=== PATIENT | female | born 1965 | race Caucasian/White ===

== ENCOUNTER 2019-06-15 11:28 | Outpatient (CLI) | payer OTHER, SELFPAY ==
[2019-06-15 11:55] LABS: Basophils Absolute Auto 0.03 K/mm3 (0.00-0.10); Basophils Percent Auto 0.3 % (0.0-1.0); Eosinophils Absolute Auto 0.11 K/mm3 (0.02-0.50); Eosinophils Percent Auto 1.3 % (1.0-6.0); Hematocrit 35.1 % (35.0-49.0); Immature Granulocyte Absolute 0.04 K/mm3 (0.00-0.00); Immature Granulocyte Percent A 0.5 % (0.0-0.0); Lymphocytes Absolute Auto 0.99 K/mm3 (1.10-4.50); Lymphocytes Percent Auto 11.5 % (18.0-42.0); Mean Corpuscular HGB Conc 34.2 g/dL (32.0-36.0); Mean Corpuscular Hemoglobin 34.5 pg (27.0-31.0); Mean Corpuscular Volume 100.9 fL (78.0-102.0); Mean Platelet Volume 11.6 fl (9.2-11.8); Monocytes Absolute Auto 0.42 K/mm3 (0.10-0.90); Monocytes Percent Auto 4.9 % (2.0-11.0); Neutrophils Percent Auto 81.5 % (50.0-70.0); Platelet Count Result 206 K/mm3 (150-420); Red Blood Count 3.48 M/mm3 (4.20-5.40); White Blood Count 8.6 K/mm3 (4.8-10.8)
[2019-06-15 13:32] LABS: Alanine Aminotransferase 13 U/L (14-59); Albumin Level 3.5 g/dL (3.4-5.0); Alkaline Phosphatase 153 U/L (46-116); Aspartate Amino Transferase 21 U/L (15-37); Bilirubin,Total 1.1 mg/dL (0.00-1.00); Blood Urea Nitrogen 40 mg/dL (7-18); Calcium 9.3 mg/dL (8.5-10.1); Carbon Dioxide 23 mmol/L (21-32); Chloride 97 mmol/L (98-108); Cholesterol 152 mg/dL (0-200); Estimated Glomerular Filt Rate 17; Glucose 106 mg/dL (70-99); HDL Direct 51 mg/dL (40-60); LDL Cholesterol Calculated 84 mg/dL (<130); Magnesium 1.4 mg/dL (1.8-2.4); Osmolality Calculated 289 mOsm/kg (285-295); Sodium 135 mmol/L (136-145); Total Protein 7.5 g/dL (6.4-8.2); Triglycerides 84 mg/dL (0-150)
[2019-06-16 16:58] LABS: Hemoglobin A1C 5.7 % (<5.7)
[2019-06-20 21:55] LABS: Vitamin D 1,25 (OH)2 Total <8 pg/mL (18-72); Vitamin D2 1,25 (OH)2 <8 pg/mL; Vitamin D3 1,25 (OH)2 <8 pg/mL
== END 2019-06-15 11:29 | disposition home or self-care (01) ==
LOC: CHSLAB 11:31
PROVIDERS: PCP Nurse Practitioner Family; Visit Provider Nurse Practitioner Family
DX: E55.9 Vitamin D deficiency, unspecified (principal); I10 Essential (primary) hypertension; R53.1 Weakness
CPT/HCPCS: 36415; 80053; 80061; 82652; 83036; 83735; 85025

== ENCOUNTER 2019-06-23 10:05 | Outpatient (CLI) | payer OTHER, SELFPAY ==
--- NOTE | ~2019-06-23 | US_ITS ---
EXAMINATION: US renal BI EXAM DATE: 06/23/2019 10:43 INDICATION: Disorder of kidney and ureter TECHNIQUE: Multiple grayscale and Doppler images of the kidneys were obtained (by a technologist who performed the scan) and subsequently reviewed. There is no prior study for comparison. FINDINGS: Right kidney: There is normal contour and echogenicity. It measures 10.7 x 4.9 x 7.7 centimeters. T here are no focal renal lesions identified. There is no hydronephrosis. Left kidney: There is normal contour and echogenicity. It measures 11.6 x 5.4 x 5.3 centimeters. Th ere are no focal renal lesions identified. There is no hydronephrosis. Bladder is collapsed. IMPRESSION: 1. Sonographically unremarkable kidneys. Reviewed, dictated and finalized at location B. EMENTATION CONSULTANT
== END 2019-06-23 10:06 | disposition home or self-care (01) ==
LOC: CHSIMG 10:07
PROVIDERS: PCP Nurse Practitioner Family; Visit Provider Nurse Practitioner Family
DX: N28.9 Disorder of kidney and ureter, unspecified (principal)
CPT/HCPCS: 76775

== ENCOUNTER 2019-09-03 15:25 | Inpatient (IN) | payer OTHER, SELFPAY ==
--- NOTE | ~2019-09-03 | US_ITS ---
US right upper quadrant INDICATION: Abdomen pain, nausea and vomiting PROCEDURE: Realtime right upper abdominal ultrasound. COMPARISON: No prior studies for comparison. FINDINGS: The pancreas is normal without focal mass or pancreatic ductal dilation. Liver echotexture is increased, consistent with fatty infiltration. There is normal directional flow in the portal ve in. There is gallbladder sludge. No stones, gallbladder wall thickening or pericholecystic fluid. Common bile duct measures 5 mm. No sonographic Guzmán's sign. IMPRESSION: 1: Gallbladder sludge. 2: Fatty infiltration of the liver. Reviewed, dictated and finalized at location A.
--- NOTE | ~2019-09-03 | CT_ITS ---
EXAMINATION: CT abdomen pelvis wo con DATE: 09/04/2019 12:16 INDICATION: Elevated bilirubin and lipase TECHNIQUE: Computed tomography (CT) of the abdomen and pelvis was performed without intravenous contr ast. The dose-length product (DLP) was 1308.38 mGy-cm. Automated exposure control and iterative recon struction technique were employed. COMPARISON: None FINDINGS: The lung bases are clear. The heart size is normal. Subendocardial fat deposition in the le ft ventricular apex is consistent with prior myocardial infarction. The liver, spleen, pancreas, gall bladder, and adrenal glands are normal. There is a 7 mm stone in the left renal pelvis without signif icant hydronephrosis. Nonobstructing stones of the left kidney measure up to 9 mm. There are multiple nonobstructing stones of the right kidney which measure up to 8 mm. No pathologically enlarged abdom inal or pelvic lymph nodes are identified. There is no free intraperitoneal gas or evidence of bowel obstruction. The appendix is normal. There is liquid stool throughout the colon to the level of the r ectum. There is moderate lumbar spondylosis. IMPRESSION: 1. 7 mm stone in the left renal pelvis without significant hydronephrosis. 2. Bilateral nephrolithiasis. 3. Subendocardial fat deposition in the left ventricular apex, consistent with prior myocardial infar ction. Reviewed, dictated and finalized at location A. IMPRESSION: 1. 7 mm stone in the left renal pelvis without significant hydronephrosis. 2. Bilateral nephrolithiasis. 3. Subendocardial fat deposition in the left ventricular apex, consistent with prior myocardial infarction.
--- NOTE | ~2019-09-03 | XR_ITS ---
XR abdomen/kub 1V 09/08/2019 09:01 INDICATION: Flank pain TECHNIQUE: KUB COMPARISON: CT dated 09/04/2019 FINDINGS: Bowel gas pattern is normal. There is no evidence of free air, mass, organomegaly, ascites or obstruction. No radiopaque renal stones are identified. There are pelvic phleboliths. The bones a ppear intact. IMPRESSION: 1: No acute abdominal abnormality identified. Renal stones not identifiable by KUB. Reviewed, dictated and finalized at location A.
[2019-09-03 15:25] VITALS: BP 81/43; PULSE 95; RESP 17; TEMP 36.7; O2SAT 100
--- NOTE | 2019-09-03 15:31 | ED.NAVMDI ---
HPI - Nausea/Vomiting/Diarrhea General Chief complaint: Nausea/Vomiting/Diarrhea Stated complaint: amb Time Seen by Provider: 09/03/19 15:31 Source: patient and EMS Mode of arrival: EMS Limitations: no limitations History of Present Illness MD elicited complaint: nausea, vomiting and diarrhea Onset (ago): day(s) (4) Description of vomiting: bilious Description of diarrhea: watery Associated nausea: Yes Associated abdominal pain: Yes Location of pain: diffuse Pain consistency: intermittent and colicky Severity: moderate Quality: cramping and aching Exacerbating factors: eating and vomiting Relieving factors: none Associated symptoms: fever/chills, loss of appetite and weakness Treatment prior to arrival: none Related Data Home Medications Medication Instructions Recorded Confirmed cyclobenzaprine 10 mg tablet 10 mg PO BID PRN tablet 06/15/19 09/03/19 hydrocodone 10 mg-acetaminophen 1 tablet PO Q6H PRN 06/15/19 09/03/19 325 mg tablet pregabalin 150 mg capsule 150 mg PO BID 06/15/19 09/03/19 trazodone 50 mg tablet 50 mg PO DAILY tablet 06/15/19 09/03/19 albuterol sulfate 1.25 mg INHALATION Q4H PRN 09/03/19 09/03/19 Allergies Allergy/AdvReac Type Severity Reaction Status Date / Time No Known Allergies Allergy Verified 06/10/19 16:30 Review of Systems Cardiovascular: Cardiovascular: Reports no additional cardiovascular complaints Respiratory: Respiratory: Reports cough ( Patient is a smoker and has COPD, she has noticed some increased cough.) Gastrointestinal: Gastrointestinal: Reports as per HPI Neurologic: Reports system reviewed and no additional complaints, except as documented Psychiatric: Psychiatric: Reports no additional psychiatric complaints [facility] Past Medical History Medical History Chronic neck pain Compromised kidney function HTN (hypertension) Insomnia Tobacco dependence Vitamin D deficiency Surgical History Surgical History Hx of colonoscopy 02/2019 Family History Family History Mother Diabetes mellitus Social History Social History Smoking packs per day: 0.5 Smoking cigarettes per day: 10.0 Smoking status: Current every day smoker Tobacco type: cigarettes Second hand tobacco smoke exposure: Yes Alcohol intake: former Substance use: never Substance use type: does not use Gender identity (if verbalized by the patient): Female Spiritual care concerns: No Agree to blood products: Yes Exam Const: General: no acute distress, alert and ill appearing acutely Nutritional Appearance: well nourished Orientation/consciousness: patient oriented x3 HENMT: Head: normal to inspection Ears: external ears normal General nose exam: Normal external nose present Face and sinus: normal facial exam Mouth: Yes dry mucous membranes Eyes: Cornea: corneas normal Pupils: Equal, round and reactive pupils present EOM: EOMs intact bilaterally Neck: Neck: normal visual inspection and no lymphadenopathy Resp: Effort & Inspection: normal respiratory effort Auscultation: clear to auscultation bilaterally and rhonchi ( clears with cough) throughout Cardio: Rate: regular rate Rhythm: regular rhythm GI: GI Palp: Yes Soft to palpation, Yes Tenderness to palpation present (GI), Yes Guarding due to palpation present (GI) and No Rebound tenderness present Auscultation: normal bowel sounds Back/Spine/Pelvis: Back: no CVA tenderness Skin: General skin exam: normal color Rashes: no rashes Neuro: General: patient oriented x3, moves all extremities and no focal motor deficits Cranial nerves: Yes Nystagmus not present Speech: normal speech Extrem: General: normal to inspection and no pedal edema Psych: Appearance: grossly normal Mental Status: mental status grossl
[2019-09-03] MEDS: SODIUM CHLORIDE 0.9% IV 1,000 ML 999 ML IV CONT ×2 (15:40→16:27)
[2019-09-03 16:09] LABS: Basophils Absolute Auto 0.03 K/mm3 (0.00-0.10); Basophils Percent Auto 0.4 % (0.0-1.0); Eosinophils Absolute Auto 0.09 K/mm3 (0.02-0.50); Eosinophils Percent Auto 1.3 % (1.0-6.0); Hematocrit 31.2 % (35.0-49.0); Hemoglobin 10.4 g/dL (12.0-15.0); Immature Granulocyte Absolute 0.08 K/mm3 (0.00-0.00); Immature Granulocyte Percent A 1.1 % (0.0-0.0); Lymphocytes Absolute Auto 1.32 K/mm3 (1.10-4.50); Mean Corpuscular HGB Conc 33.3 g/dL (32.0-36.0); Mean Corpuscular Hemoglobin 38.5 pg (27.0-31.0); Mean Corpuscular Volume 115.6 fL (78.0-102.0); Mean Platelet Volume 12.1 fl (9.2-11.8); Monocytes Absolute Auto 0.53 K/mm3 (0.10-0.90); Monocytes Percent Auto 7.6 % (2.0-11.0); Neutrophils Absolute Auto 4.9 K/mm3 (1.7-7.2); Neutrophils Percent Auto 70.6 % (50.0-70.0); Nucleated Red Blood Cells Absolute Auto 0.04 K/mm3 (0.00-0.00); Nucleated Red Blood Cells Perc 0.6 % (0-0.0); Platelet Count Result 140 K/mm3 (150-420)
[2019-09-03 16:29] LABS: Lactic Acid 2.8 mmol/L (0.4-2.0)
[2019-09-03 16:34] LABS: Alanine Aminotransferase 21 U/L (14-59); Anion Gap 17.1 mmol/L (7-16); Aspartate Amino Transferase 49 U/L (15-37); Bilirubin,Total 6.4 mg/dL (0.00-1.00); Blood Urea Nitrogen 30 mg/dL (7-18); CRP 2.3 mg/dL (0.0-0.9); Calcium 8.9 mg/dL (8.5-10.1); Carbon Dioxide 23 mmol/L (21-32); Chloride 98 mmol/L (98-108); Estimated Glomerular Filt Rate 21; Glucose 98 mg/dL (70-99); Osmolality Calculated 284 mOsm/kg (285-295); Potassium 4.1 mmol/L (3.5-5.1); Sodium 134 mmol/L (136-145); Total Protein 6.4 g/dL (6.4-8.2)
[2019-09-03 16:35] LABS: Albumin Level 2.9 g/dL (3.4-5.0); Alkaline Phosphatase 139 U/L (46-116); Lipase 710 U/L (73-393)
[2019-09-03 16:41] VITALS: BP 109/58; PULSE 88; O2SAT 100
[2019-09-03 17:01] LABS: Amylase 78 U/L (25-115)
[2019-09-03 17:36] VITALS: BP 114/63; PULSE 88; O2SAT 100
[2019-09-03 18:03] VITALS: BMI 33.0
[2019-09-03] MEDS: DEXTROSE 5%/0.9% SOD CHL 1,000 ML 150 ML IV CONT (18:36)
--- NOTE | 2019-09-03 18:45 | ADMGEN ---
This patient, Cee Tran, was admitted to 2nd Floor Room 226-2. Patient/family oriented to hospital policies and general routines including ID bracelet, bed and alarms, visiting hours, pain management, procedures, bathroom and other care routines, personal items, smoking policy, room service/diet, and visiting hours. Valuables list has been completed. Information on how to activate the Rapid Response Team has been discussed. Pt is aware she is being tested for covid and the need for PPE's, SO called to bring her phone shell reprint operator in and leave at desk Patient/Family are encouraged to report perceived risks to care and to ask questions if they do not understand what they are told or what they should do.
[2019-09-03 20:00] VITALS: BP 108/68; PULSE 93; RESP 18; TEMP 36.1; O2SAT 98
[2019-09-03 20:29] VITALS: RESP 20
--- NOTE | 2019-09-03 20:40 | PC.NURSE ---
pt requests acid reflux medicine, takes omeprazole at home, dr has put in order for protonix
[2019-09-03] MEDS: PANTOPRAZOLE 40 MG TABLET PO (20:50)
[2019-09-04] VITALS (8 sets, daily range): BP systolic 92–111; BP diastolic 40–75; PULSE 75–108; RESP 18–20; TEMP 36.4–36.9; O2SAT 95–98
[2019-09-04] MEDS: DEXTROSE 5%/0.9% SOD CHL 1,000 ML 150 ML IV CONT ×3 (01:06→20:23)
[2019-09-04 05:58] LABS: Basophils Absolute Auto 0.01 K/mm3 (0.00-0.10); Basophils Percent Auto 0.2 % (0.0-1.0); Eosinophils Percent Auto 1.5 % (1.0-6.0); Hematocrit 26.1 % (35.0-49.0); Immature Granulocyte Absolute 0.06 K/mm3 (0.00-0.00); Immature Granulocyte Percent A 0.9 % (0.0-0.0); Lymphocytes Absolute Auto 1.08 K/mm3 (1.10-4.50); Lymphocytes Percent Auto 16.5 % (18.0-42.0); Mean Corpuscular HGB Conc 34.5 g/dL (32.0-36.0); Mean Corpuscular Hemoglobin 38.6 pg (27.0-31.0); Mean Platelet Volume 11.6 fl (9.2-11.8); Monocytes Percent Auto 6.1 % (2.0-11.0); Neutrophils Absolute Auto 4.9 K/mm3 (1.7-7.2); Neutrophils Percent Auto 74.8 % (50.0-70.0); Platelet Count Result 131 K/mm3 (150-420); Red Blood Count 2.33 M/mm3 (4.20-5.40); Red Cell Distribution Width 17.9 % (11.6-14.4); White Blood Count 6.5 K/mm3 (4.8-10.8)
[2019-09-04 06:21] LABS: Lactic Acid 1.5 mmol/L (0.4-2.0)
[2019-09-04 06:38] LABS: Alanine Aminotransferase 17 U/L (14-59); Albumin Level 2.3 g/dL (3.4-5.0); Alkaline Phosphatase 110 U/L (46-116); Anion Gap 13.7 mmol/L (7-16); Aspartate Amino Transferase 33 U/L (15-37); Bilirubin,Total 1.1 mg/dL (0.00-1.00); Blood Urea Nitrogen 25 mg/dL (7-18); Calcium 7.9 mg/dL (8.5-10.1); Carbon Dioxide 23 mmol/L (21-32); Chloride 102 mmol/L (98-108); Estimated CRCL calculation 38 ml/min; Estimated Glomerular Filt Rate 25; Glucose 104 mg/dL (70-99); Lipase 628 U/L (73-393); Osmolality Calculated 284 mOsm/kg (285-295); Potassium 3.7 mmol/L (3.5-5.1); Sodium 135 mmol/L (136-145); Total Protein 5.2 g/dL (6.4-8.2)
[2019-09-04 06:42] LABS: Add Urine Microscopic? YES; Appearance Urine Clear (Clear); Bilirubin Urine Negative (Negative); Blood Urine Negative (Negative); Color Urine Amber (Yellow); Glucose Urine UA Negative (Negative); Ketones Urine Negative (Negative); Leukocyte Esterase Ur Negative LEU/UL (Negative); Nitrate Urine Negative (Negative); Protein Urine Negative (Negative); Specific Grav Ur 1.015 (1.010-1.020); Urobilinogen Urine 0.2 mg/dL (0.2-1.0)
[2019-09-04] MEDS: METOPROLOL TARTRATE 25 MG TABLET PO ×2 (09:13→16:53)
[2019-09-04] MEDS: POTASSIUM CHLORIDE 20 MEQ TABLET PO (09:13)
[2019-09-04] MEDS: MAGNESIUM OXIDE 400 MG TABLET PO ×3 (09:13→16:53)
[2019-09-04] MEDS: PREGABALIN 50 MG CAPSULE 150 MG PO ×2 (09:14→16:53)
--- NOTE | 2019-09-04 12:20 | PM.IMHP ---
H&P: HPI History of Present Illness Chief complaint: amb <JEANA Valdez - Last Filed: 09/04/19 12:56> Narrative: Cee Tran is a 53 year old female that presented to the ED with complaints of nausea and vomiting and diarrhea. She has a past medical history of chronic neck pain, compromised kidney function, hypertension, insomnia, tobacco dependence and vitamin-D deficiency. According to patient she started having NAUSEA VOMITING AND DIARRHEA THAT SHE thought was acid reflex and May. She noted that she thought IT WAS the food that she was eating. she noted for the past 2 weeks her condition has worsened she did note that she had diarrhea that was black in color, she also pointed out that she has a hemorrhoid that bothers her, and has had nausea while eating she also reports of vomiting. she noted that her weakness has increased within the last 2 weeks. patient's vital signs are 98.2, 98, 18 98% air and 111/75. ED patient was tested for C diff in COVID-19 her creatinine was 2.44 her bili, alkaline phosphate , crp, lactic acid,and lipase were all elevated. she is being admitted for nausea vomiting and diarrhea with weakness and to rule out pancreatitis. patient continues to have nausea she will be placed on NPO status, given fluids in a CT of the abdomen will be ordered. She does have abdominal tenderness with palpation , She also reported a subjective fever before admission. Patient denies SOB, CP, palpitation, extremity numbness, lightheadness, dizziness, constipation. <JEANA Valdez - Last Filed: 09/04/19 12:56> Review of Systems Constitutional: Constitutional: Reports fatigue, Reports fever(s), Reports lethargy and Reports poor appetite <JEANA Valdez - Last Filed: 09/04/19 12:56> Cardiovascular: Cardiovascular: Denies lightheadedness, Denies dyspnea and Denies orthopnea <JEANA Valdez - Last Filed: 09/04/19 12:56> Respiratory: Respiratory: Reports cough ( chronic that has worsened), Denies dyspnea, Denies dyspnea on exertion and Denies wheezing <JEANA Valdez - Last Filed: 09/04/19 12:56> Gastrointestinal: Gastrointestinal: Reports melena, Reports change in bowel habits, Reports diarrhea, Reports nausea and Reports vomiting <[facility] Last Filed: 09/04/19 12:56> Genitourinary: Genitourinary: Reports no additional female genitourinary complaints, Denies dysuria and Denies urinary hesitancy <[facility] Last Filed: 09/04/19 12:56> Musculoskeletal: Musculoskeletal: Reports arthralgias ( chronic neck pain) and Reports muscle weakness <[facility] Last Filed: 09/04/19 12:56> Integumentary/Breasts: Skin/Breast: Reports system reviewed and no additional complaints, except as docu <JarretMISSY [facility]Prov[facility] Last Filed: 09/04/19 12:56> Neurologic: Reports system reviewed and no additional complaints, except as documented, Denies confusion, Denies vertigo, Denies dizziness, Denies syncope, Denies loss of vision and Denies seizure-like activity <[facility] Last Filed: 09/04/19 12:56> Psychiatric: Psychiatric: Reports no additional psychiatric complaints <[facility] Last Filed: 09/04/19 12:56> Endocrine: Endocrine: Reports no additional endocrine complaints <[facility] Last Filed: 09/04/19 12:56> Hematologic/Lymphatic: Hematologic/Lymphatic: Reports no additional hematologic/lymphatic complaints <TRACY Valdez Last Filed: 09/04/19 12:56> Allergic/Immunologic: Allergic/Immunologic: Reports no additional allergic/immunologic complaints <[facility] Last Filed: 09/04/19 12:56> [facility] Past Medical History Medical History: Medical History Chronic neck pain Compromised kidney function HTN (hypertension) Insomnia Tobacco dependence Vitamin D deficiency <M[facility] Last Filed:
[2019-09-04] MEDS: LOPERAMIDE HCL 2 MG CAPSULE 4 MG PO (12:58)
[2019-09-04] MEDS: METOCLOPRAMIDE HCL INJ 10 MG/2 ML VIAL 5 MG IV PUSH ×3 (12:58→23:59)
--- NOTE | 2019-09-04 14:30 | PC.NURSE ---
Patient sleeping quietly in bed, IV fluids infusing per order.Shows no signs of distress. Call light and belongings at side.
--- NOTE | 2019-09-04 14:48 | P.PNCROSS_ITS ---
Event Note Event Note Event Note: Chart, Melinda Moore's note, labs and image results reviewed. Nausea and anorexia for over a week. Abdominal cramping, vomiting and several episodes of diarrhea for the past day. Several drinks of wine over the past 5 days, otherwise no alcohol since early June. Hypotension and weakness on presentation. No hx of pancreatitis. Lipase of 710 on admission which is dropping. Denies cramping today, still nauseated. Recent hx of * Suspect acute pancreatitis as etiology. Elevated lipase with normal pancreas on CT scan (which is not unusual). Plan: NPO, IV hydration, monitor lipase, check triglyceride. * GERD symptoms. Some improvement with PPI. C/o pills not going all the way down today. * Dehydration: Post 2 liters NS normotensive. * Stage G3B CKD - 07/01 Creatinine = 2.57; today = 2. 06 * Anemia: Hgb on 07/01 = 12; 09/03 = 9: drop of 3 gm. Pt. states black streaks in stool at times recently. Hemorrhoids result in frequent streaks of blood on stool. Pt. may have bleeding gastritis/ulcer. Continue pantoprazole. Follow up with G.I. * Chronic neck pain - tx. with daily hydrocodone. Agree with documentation and plan.
[2019-09-04] MEDS: MORPHINE SULFATE 2 MG/ML INJ IV PUSH (17:04)
--- NOTE | 2019-09-04 18:30 | PC.NURSE ---
Patient resting in bed. Denies any needs. Call light and belongings at side.IV fluids cont. per order.
[2019-09-04] MEDS: PANTOPRAZOLE SODIUM IV 40 MG VIAL IV PUSH (20:24)
--- NOTE | 2019-09-04 21:15 | PC.NURSE ---
pt sleeping, respirations even and regular, no evidence of distress noted at this time.
--- NOTE | 2019-09-04 22:15 | PC.NURSE ---
pt sleeping, iv fluids running per order, respirations even and regular, no evidence of distress noted
[2019-09-05] VITALS (11 sets, daily range): BP systolic 87–106; BP diastolic 46–72; PULSE 68–92; RESP 18–20; TEMP 36.2–36.8; O2SAT 94–99
--- NOTE | 2019-09-05 00:05 | PC.NURSE ---
pt given popsicle per request, denies any N/V, iv fluids running per order
--- NOTE | 2019-09-05 01:59 | PC.NURSE ---
pt sleeping, no evidence of distress noted, iv fluids running per order.
[2019-09-05] MEDS: DEXTROSE 5%/0.9% SOD CHL 1,000 ML 150 ML IV CONT (03:10)
--- NOTE | 2019-09-05 04:30 | PC.NURSE ---
pt resting in bed, denies any sob, dizziness, or any other symptoms at this time, iv fluids infusing
[2019-09-05] MEDS: METOCLOPRAMIDE HCL INJ 10 MG/2 ML VIAL 5 MG IV PUSH ×2 (05:41→11:22)
[2019-09-05 05:47] LABS: Basophils Absolute Auto 0.03 K/mm3 (0.00-0.10); Basophils Percent Auto 0.5 % (0.0-1.0); Eosinophils Absolute Auto 0.15 K/mm3 (0.02-0.50); Eosinophils Percent Auto 2.5 % (1.0-6.0); Hematocrit 26.3 % (35.0-49.0); Hemoglobin 8.5 g/dL (12.0-15.0); Immature Granulocyte Absolute 0.05 K/mm3 (0.00-0.00); Immature Granulocyte Percent A 0.8 % (0.0-0.0); Lymphocytes Absolute Auto 1.61 K/mm3 (1.10-4.50); Lymphocytes Percent Auto 26.8 % (18.0-42.0); Mean Corpuscular HGB Conc 32.3 g/dL (32.0-36.0); Mean Corpuscular Hemoglobin 37.6 pg (27.0-31.0); Mean Corpuscular Volume 116.4 fL (78.0-102.0); Mean Platelet Volume 12.5 fl (9.2-11.8); Monocytes Absolute Auto 0.42 K/mm3 (0.10-0.90); Neutrophils Absolute Auto 3.8 K/mm3 (1.7-7.2); Neutrophils Percent Auto 62.4 % (50.0-70.0); Nucleated Red Blood Cells Absolute Auto 0.02 K/mm3 (0.00-0.00); Nucleated Red Blood Cells Perc 0.3 % (0-0.0); Platelet Count Result 97 K/mm3 (150-420); Red Blood Count 2.26 M/mm3 (4.20-5.40); Red Cell Distribution Width 18.1 % (11.6-14.4)
[2019-09-05] MEDS: MORPHINE SULFATE 2 MG/ML INJ IV PUSH ×3 (05:47→08:57)
[2019-09-05 06:14] LABS: Alanine Aminotransferase 15 U/L (14-59); Albumin Level 2.2 g/dL (3.4-5.0); Alkaline Phosphatase 99 U/L (46-116); Aspartate Amino Transferase 29 U/L (15-37); Bilirubin,Total 0.7 mg/dL (0.00-1.00); Blood Urea Nitrogen 18 mg/dL (7-18); CRP 2.3 mg/dL (0.0-0.9); Calcium 8.1 mg/dL (8.5-10.1); Carbon Dioxide 21 mmol/L (21-32); Chloride 106 mmol/L (98-108); Creatine Kinase 37 U/L (26-192); Estimated CRCL calculation 47 ml/min; Estimated Glomerular Filt Rate 33; Glucose 106 mg/dL (70-99); Lipase 616 U/L (73-393); Magnesium 1.3 mg/dL (1.8-2.4); Osmolality Calculated 289 mOsm/kg (285-295); Sodium 139 mmol/L (136-145); Total Protein 5.2 g/dL (6.4-8.2)
[2019-09-05 06:16] LABS: Triglycerides 123 mg/dL (0-150)
[2019-09-05 06:20] LABS: Lactic Acid 1.7 mmol/L (0.4-2.0)
[2019-09-05] MEDS: METOPROLOL TARTRATE 25 MG TABLET PO (08:57)
[2019-09-05] MEDS: MAGNESIUM OXIDE 400 MG TABLET PO ×3 (08:57→17:06)
[2019-09-05] MEDS: PANTOPRAZOLE SODIUM IV 40 MG VIAL IV PUSH (08:57)
[2019-09-05] MEDS: DEXTROSE 5%/0.9% SOD CHL 1,000 ML 100 ML IV CONT (10:18)
[2019-09-05] MEDS: MAGNESIUM SULF 2 GM/WATER 50ML 2 GM/50 ML BAG IVPB (11:21)
--- NOTE | 2019-09-05 11:35 | P.PNIM_ITS ---
Progress Note: A&P Assessment and Plan (1) Vomiting and diarrhea: Code(s): R11.10 - Vomiting, unspecified; R19.7 - Diarrhea, unspecified Status: Acute Assessment and Plan: * resolved * possibly secondary to pancreatitis versus viral infection * continue Zofran and Reglan * C diff negative * continue IV hydration * patient able to tolerate clear liquid diet will advance as tolerated * will advance diet as tolerated * lactic acid now within limits on admission 2 8 (2) Compromised kidney function: Code(s): N28.9 - Disorder of kidney and ureter, unspecified Status: Acute Assessment and Plan: * worsen due to dehydration * creatinine on admission 2.44 currently 1.65 has improved * will continue to monitor renal function * avoid nephrotoxins agents * will renal dose all medication * will continue fluid challenge * patient able to tolerate clear liquid diet will advance as tolerate * PATIENT CREATININE BACK AND 09/15/2018 WAS 1.48 WILL ASSUME THIS IS PATIENT'S BASELINE. (3) Weakness: Code(s): R53.1 - Weakness Status: Acute Assessment and Plan: * secondary to dehydration due to nausea vomiting and diarrhea versus viral infection * will continue to treat underlying cause * will possibly start PT OT once COVID-19 is negative (4) Insomnia: Code(s): G47.00 - Insomnia, unspecified Status: Acute Assessment and Plan: * restarted trazodone (5) Tobacco dependence: Code(s): F17.200 - Nicotine dependence, unspecified, uncomplicated Status: Acute Assessment and Plan: * patient declines nicotine patch * patient educated on smoking cessation (6) Chronic neck pain: Code(s): M54.2 - Cervicalgia; G89.29 - Other chronic pain Status: Acute Assessment and Plan: * controlled * started IV pain medication (7) HTN (hypertension): Code(s): I10 - Essential (primary) hypertension Status: Acute Assessment and Plan: * blood pressure 87/58 soft * will restart patient's home medication once she is off NPO status * continue Vital Signs disorder * will adjust medication as needed (8) Elevated lipase: Code(s): R74.8 - Abnormal levels of other serum enzymes Status: Acute Assessment and Plan: * possibly secondary to pancreatitis * patient does have a history of ETOH abuse * lipase slightly elevated at 710 now 66. * CT of the abdomen indicate 1. 7 mm stone in the left renal pelvis without significant hydronephrosis.,Bilateral nephrolithiasis,Subendocardial fat deposition in the left ventricular apex, consistent with prior myocardial infarction. * will continue to monitor Subjective Date/time seen: 09/05/19 11:35Patient does not complain of abdominal tenderness today. she is ready to eat and was able to tolerate a clear liquid diet. she also noted that she has not had any diarrhea today and that she believes her condition has improved. we will continue to advance her diet and monitor her blood pressure due to slight hypotension. Patient denies SOB, CP, palpitation, extremity numbness, lightheadness, dizziness, constipation, diarrhea, chills or fever. patient is concerned of her lower extremity weakness we will start physical therapy/ occupational therapy on her tomorrow. Review of Systems Constitutional: Constitutional: Reports fatigue and Reports poor appetite Eyes: Eyes: Denies loss of vision ENT: Denies vertigo and Denies dizziness Cardiovascular
--- NOTE | 2019-09-05 11:35 | PM.IMPN ---
Progress Note: A&P Assessment and Plan (1) Vomiting and diarrhea: Code(s): R11.10 - Vomiting, unspecified; R19.7 - Diarrhea, unspecified Status: Acute Assessment and Plan: resolved possibly secondary to pancreatitis versus viral infection continue Zofran and Reglan C diff negative continue IV hydration patient able to tolerate clear liquid diet will advance as tolerated will advance diet as tolerated lactic acid now within limits on admission 2 8 (2) Compromised kidney function: Code(s): N28.9 - Disorder of kidney and ureter, unspecified Status: Acute Assessment and Plan: worsen due to dehydration creatinine on admission 2.44 currently 1.65 has improved will continue to monitor renal function avoid nephrotoxins agents will renal dose all medication will continue fluid challenge patient able to tolerate clear liquid diet will advance as tolerate PATIENT CREATININE BACK AND 09/15/2018 WAS 1.48 WILL ASSUME THIS IS PATIENT'S BASELINE. (3) Weakness: Code(s): R53.1 - Weakness Status: Acute Assessment and Plan: secondary to dehydration due to nausea vomiting and diarrhea versus viral infection will continue to treat underlying cause will possibly start PT OT once COVID-19 is negative (4) Insomnia: Code(s): G47.00 - Insomnia, unspecified Status: Acute Assessment and Plan: restarted trazodone (5) Tobacco dependence: Code(s): F17.200 - Nicotine dependence, unspecified, uncomplicated Status: Acute Assessment and Plan: patient declines nicotine patch patient educated on smoking cessation (6) Chronic neck pain: Code(s): M54.2 - Cervicalgia; G89.29 - Other chronic pain Status: Acute Assessment and Plan: controlled started IV pain medication (7) HTN (hypertension): Code(s): I10 - Essential (primary) hypertension Status: Acute Assessment and Plan: blood pressure 87/58 soft will restart patient's home medication once she is off NPO status continue Vital Signs disorder will adjust medication as needed (8) Elevated lipase: Code(s): R74.8 - Abnormal levels of other serum enzymes Status: Acute Assessment and Plan: possibly secondary to pancreatitis patient does have a history of ETOH abuse lipase slightly elevated at [address] of the abdomen indicate 1. 7 mm stone in the left renal pelvis without significant hydronephrosis.,Bilateral nephrolithiasis,Subendocardial fat deposition in the left ventricular apex, consistent with prior myocardial infarction. will continue to monitor Subjective Date/time seen: 09/05/19 11:35Patient does not complain of abdominal tenderness today. she is ready to eat and was able to tolerate a clear liquid diet. she also noted that she has not had any diarrhea today and that she believes her condition has improved. we will continue to advance her diet and monitor her blood pressure due to slight hypotension. Patient denies SOB, CP, palpitation, extremity numbness, lightheadness, dizziness, constipation, diarrhea, chills or fever. patient is concerned of her lower extremity weakness we will start physical therapy/ occupational therapy on her tomorrow. Review of Systems Constitutional: Constitutional: Reports fatigue and Reports poor appetite Eyes: Eyes: Denies loss of vision ENT: Denies vertigo and Denies dizziness Cardiovascular: Cardiovascular: Denies syncope, Denies lightheadedness, Denies dyspnea, Denies dyspnea on exertion and Denies orthopnea Respiratory: Respiratory: Reports cough ( chronic that has worsened), Denies dyspnea, Denies dyspnea on exertion and Denies wheezing Gastrointestinal: Gastrointestinal: Reports melena, Reports change in bowel habits, Reports diarrhea, Reports nausea and Reports vomiting Genitourinary: Genitourinary: Reports no additional female
--- NOTE | 2019-09-05 12:20 | PC.NURSE ---
Magnesium Sulfate done infusing. Unable to access via MAR to chart infusion time. Infusion done at 1220.
--- NOTE | 2019-09-05 13:34 | PC.NURSE ---
LAB HERE TO DRAW 1300 H/H, BUT NOT ABLE TO FOUND VEIN. SILVIA NOTIFIED AND OK TO WAIT UNTIL FRIDAY A.M. 09/06/2019
[2019-09-05 14:09] LABS: Hemoglobin 10.8 g/dL (12.0-15.0)
[2019-09-05 15:18] LABS: Occult Blood Negative (Negative)
[2019-09-05] MEDS: PREGABALIN 50 MG CAPSULE 150 MG PO (17:06)
[2019-09-05] MEDS: TRAZODONE HCL 50 MG TABLET PO (21:01)
[2019-09-05] MEDS: PANTOPRAZOLE 40 MG TABLET PO (21:02)
[2019-09-06] VITALS (7 sets, daily range): BP systolic 90–109; BP diastolic 56–67; PULSE 71–89; RESP 12–20; TEMP 35.9–36.6; O2SAT 96–99
--- NOTE | 2019-09-06 01:39 | PC.NURSE ---
pt sleeping, respirations even and regular, no evidence of distress noted
[2019-09-06 06:24] LABS: Hematocrit 27.4 % (35.0-49.0); Hemoglobin 9.1 g/dL (12.0-15.0); Mean Corpuscular HGB Conc 33.2 g/dL (32.0-36.0); Mean Corpuscular Hemoglobin 38.4 pg (27.0-31.0); Mean Corpuscular Volume 115.6 fL (78.0-102.0); Mean Platelet Volume 11.7 fl (9.2-11.8); Platelet Count Result 143 K/mm3 (150-420); Red Blood Count 2.37 M/mm3 (4.20-5.40); Red Cell Distribution Width 17.9 % (11.6-14.4); White Blood Count 7.3 K/mm3 (4.8-10.8)
[2019-09-06 06:40] LABS: Alanine Aminotransferase 14 U/L (14-59); Albumin Level 2.1 g/dL (3.4-5.0); Alkaline Phosphatase 105 U/L (46-116); Anion Gap 11.8 mmol/L (7-16); Aspartate Amino Transferase 34 U/L (15-37); Bilirubin,Total 0.8 mg/dL (0.00-1.00); Blood Urea Nitrogen 14 mg/dL (7-18); Calcium 8.2 mg/dL (8.5-10.1); Carbon Dioxide 23 mmol/L (21-32); Chloride 106 mmol/L (98-108); Estimated CRCL calculation 50 ml/min; Estimated Glomerular Filt Rate 36; Glucose 96 mg/dL (70-99); Lipase 540 U/L (73-393); Magnesium 1.6 mg/dL (1.8-2.4); Osmolality Calculated 284 mOsm/kg (285-295); Potassium 3.8 mmol/L (3.5-5.1); Sodium 137 mmol/L (136-145); Total Protein 5.4 g/dL (6.4-8.2)
[2019-09-06] MEDS: PANTOPRAZOLE 40 MG TABLET PO ×2 (08:53→21:04)
[2019-09-06] MEDS: MAGNESIUM OXIDE 400 MG TABLET PO ×4 (08:53→16:52)
[2019-09-06] MEDS: POTASSIUM CHLORIDE 20 MEQ TABLET PO (08:53)
[2019-09-06] MEDS: PREGABALIN 50 MG CAPSULE 150 MG PO ×2 (08:54→16:52)
--- NOTE | 2019-09-06 11:37 | P.PNIM_ITS ---
Progress Note: A&P Assessment and Plan (1) Vomiting and diarrhea: Code(s): R11.10 - Vomiting, unspecified; R19.7 - Diarrhea, unspecified Status: Acute Assessment and Plan: * unable to tolerate breakfast this morning reports of nausea * possibly secondary to pancreatitis versus viral infection * continue Zofran and Reglan * C diff negative * restarted IV hydration * will advance diet as tolerated * lactic acid now within limits on admission 2 8 (2) Compromised kidney function: Code(s): N28.9 - Disorder of kidney and ureter, unspecified Status: Acute Assessment and Plan: * worsen due to dehydration * creatinine on admission 2.44 currently 1.35 has improved * will continue to monitor renal function * avoid nephrotoxins agents * will renal dose all medication * will continue fluid challenge * PATIENT CREATININE BACK AND 09/15/2018 WAS 1.48 WILL ASSUME THIS IS PATIENT'S BASELINE. (3) Weakness: Code(s): R53.1 - Weakness Status: Acute Assessment and Plan: * secondary to dehydration due to nausea vomiting and diarrhea versus viral infection * will continue to treat underlying cause * will possibly start PT OT once COVID-19 is negative (4) Insomnia: Code(s): G47.00 - Insomnia, unspecified Status: Acute Assessment and Plan: * restarted trazodone (5) Tobacco dependence: Code(s): F17.200 - Nicotine dependence, unspecified, uncomplicated Status: Acute Assessment and Plan: * patient declines nicotine patch * patient educated on smoking cessation (6) Chronic neck pain: Code(s): M54.2 - Cervicalgia; G89.29 - Other chronic pain Status: Acute Assessment and Plan: * controlled * started IV pain medication (7) HTN (hypertension): Code(s): I10 - Essential (primary) hypertension Status: Acute Assessment and Plan: * blood pressure has improved currently 101/64 * continue Vital Signs disorder * will adjust medication as needed (8) Elevated lipase: Code(s): R74.8 - Abnormal levels of other serum enzymes Status: Acute Assessment and Plan: * possibly secondary to pancreatitis * patient does have a history of ETOH abuse * lipase slightly elevated at 710 now 540 * CT of the abdomen indicate 1. 7 mm stone in the left renal pelvis without significant hydronephrosis.,Bilateral nephrolithiasis,Subendocardial fat deposition in the left ventricular apex, consistent with prior myocardial infarction. * will continue to monitor * ultrasound of the right upper quadrant pending Subjective Date/time seen: 09/06/19 11:37 VANESA continues to complain of epigastric pain, she was also not able to hold down her breakfast and reported of nausea and vomiting. she will remain an additional day we will start fluids on her and order a right upper quad ultrasound. she has no other complaints at this time. Review of Systems Constitutional: Constitutional: Reports fatigue and Reports poor appetite Eyes: Eyes: Denies loss of vision ENT: Denies vertigo and Denies dizziness Cardiovascular: Cardiovascular: Denies syncope, Denies lightheadedness, Denies dyspnea, Denies dyspnea on exertion and Denies orthopnea Respiratory: Respiratory: Reports cough ( chronic that has worsened), Denies dyspnea, Denies dyspnea on exertion and Denies wheezing Gastrointestinal: Gastrointestinal: Reports melena, Reports change in bowel habits, Reports nausea and Reports vom
--- NOTE | 2019-09-06 11:37 | PM.IMPN ---
Progress Note: A&P Assessment and Plan (1) Vomiting and diarrhea: Code(s): R11.10 - Vomiting, unspecified; R19.7 - Diarrhea, unspecified Status: Acute Assessment and Plan: unable to tolerate breakfast this morning reports of nausea possibly secondary to pancreatitis versus viral infection continue Zofran and Reglan C diff negative restarted IV hydration will advance diet as tolerated lactic acid now within limits on admission 2 8 (2) Compromised kidney function: Code(s): N28.9 - Disorder of kidney and ureter, unspecified Status: Acute Assessment and Plan: worsen due to dehydration creatinine on admission 2.44 currently 1.35 has improved will continue to monitor renal function avoid nephrotoxins agents will renal dose all medication will continue fluid challenge PATIENT CREATININE BACK AND 09/15/2018 WAS 1.48 WILL ASSUME THIS IS PATIENT'S BASELINE. (3) Weakness: Code(s): R53.1 - Weakness Status: Acute Assessment and Plan: secondary to dehydration due to nausea vomiting and diarrhea versus viral infection will continue to treat underlying cause will possibly start PT OT once COVID-19 is negative (4) Insomnia: Code(s): G47.00 - Insomnia, unspecified Status: Acute Assessment and Plan: restarted trazodone (5) Tobacco dependence: Code(s): F17.200 - Nicotine dependence, unspecified, uncomplicated Status: Acute Assessment and Plan: patient declines nicotine patch patient educated on smoking cessation (6) Chronic neck pain: Code(s): M54.2 - Cervicalgia; G89.29 - Other chronic pain Status: Acute Assessment and Plan: controlled started IV pain medication (7) HTN (hypertension): Code(s): I10 - Essential (primary) hypertension Status: Acute Assessment and Plan: blood pressure has improved currently 101/64 continue Vital Signs disorder will adjust medication as needed (8) Elevated lipase: Code(s): R74.8 - Abnormal levels of other serum enzymes Status: Acute Assessment and Plan: possibly secondary to pancreatitis patient does have a history of ETOH abuse lipase slightly elevated at [address] of the abdomen indicate 1. 7 mm stone in the left renal pelvis without significant hydronephrosis.,Bilateral nephrolithiasis,Subendocardial fat deposition in the left ventricular apex, consistent with prior myocardial infarction. will continue to monitor ultrasound of the right upper quadrant pending Subjective Date/time seen: 09/06/19 11:37 VANESA continues to complain of epigastric pain, she was also not able to hold down her breakfast and reported of nausea and vomiting. she will remain an additional day we will start fluids on her and order a right upper quad ultrasound. she has no other complaints at this time. Review of Systems Constitutional: Constitutional: Reports fatigue and Reports poor appetite Eyes: Eyes: Denies loss of vision ENT: Denies vertigo and Denies dizziness Cardiovascular: Cardiovascular: Denies syncope, Denies lightheadedness, Denies dyspnea, Denies dyspnea on exertion and Denies orthopnea Respiratory: Respiratory: Reports cough ( chronic that has worsened), Denies dyspnea, Denies dyspnea on exertion and Denies wheezing Gastrointestinal: Gastrointestinal: Reports melena, Reports change in bowel habits, Reports nausea and Reports vomiting Genitourinary: Genitourinary: Reports no additional female genitourinary complaints, Denies dysuria and Denies urinary hesitancy Musculoskeletal: Musculoskeletal: Reports arthralgias ( chronic neck pain) and Reports muscle weakness Integumentary/Breasts: Skin/Breast: Reports system reviewed and no additional complaints, except as docu Neurologic: Reports system reviewed and no additional complaints, except as documented, Denies confusion, Denies vertigo
[2019-09-06] MEDS: METOCLOPRAMIDE HCL 10 MG TABLET PO ×3 (11:49→21:04)
[2019-09-06] MEDS: MORPHINE SULFATE 2 MG/ML INJ IV PUSH ×3 (12:31→21:11)
[2019-09-06] MEDS: SODIUM CHLORIDE 0.9% IV 1,000 ML 100 ML IV CONT ×2 (12:48→22:21)
[2019-09-06 14:01] LABS: SARS-CoV-2 RNA PCR Negative
[2019-09-06 17:00] LABS: Glucose Point of Care 105 (65-105)
[2019-09-06] MEDS: TRAZODONE HCL 50 MG TABLET PO (21:04)
--- NOTE | 2019-09-06 23:28 | PC.NURSE ---
Patient had 350 mls out of orange colored urine. Noted small amount of white grit when strained urine. Patient has not voided c/o nausea or vomiting. Informed of being NPO after midnight
[2019-09-07] VITALS (10 sets, daily range): BP systolic 98–135; BP diastolic 60–79; PULSE 68–110; RESP 18–20; TEMP 36.4–36.7; O2SAT 95–100
--- NOTE | 2019-09-07 02:42 | PC.NURSE ---
Sleeping, resp even. IV continues.
[2019-09-07] MEDS: MORPHINE SULFATE 2 MG/ML INJ IV PUSH ×2 (03:56→08:37)
--- NOTE | 2019-09-07 04:29 | PC.NURSE ---
Pt voided heidy urine, strained neg for calculi
[2019-09-07 05:53] LABS: Hematocrit 26.7 % (35.0-49.0); Hemoglobin 8.7 g/dL (12.0-15.0); Mean Corpuscular HGB Conc 32.6 g/dL (32.0-36.0); Mean Corpuscular Hemoglobin 37.5 pg (27.0-31.0); Mean Corpuscular Volume 115.1 fL (78.0-102.0); Mean Platelet Volume 11.4 fl (9.2-11.8); Platelet Count Result 127 K/mm3 (150-420); Red Blood Count 2.32 M/mm3 (4.20-5.40); Red Cell Distribution Width 17.6 % (11.6-14.4)
[2019-09-07 06:04] LABS: Alanine Aminotransferase 13 U/L (14-59); Alkaline Phosphatase 102 U/L (46-116); Anion Gap 13.9 mmol/L (7-16); Aspartate Amino Transferase 32 U/L (15-37); Bilirubin,Total 0.9 mg/dL (0.00-1.00); Blood Urea Nitrogen 10 mg/dL (7-18); Calcium 7.8 mg/dL (8.5-10.1); Carbon Dioxide 23 mmol/L (21-32); Chloride 105 mmol/L (98-108); Estimated CRCL calculation 60 ml/min; Estimated Glomerular Filt Rate 44; Glucose 92 mg/dL (70-99); Lipase 352 U/L (73-393); Magnesium 1.6 mg/dL (1.8-2.4); Osmolality Calculated 285 mOsm/kg (285-295); Potassium 3.9 mmol/L (3.5-5.1); Sodium 138 mmol/L (136-145); Total Protein 5.1 g/dL (6.4-8.2)
--- NOTE | 2019-09-07 06:05 | PC.NURSE ---
Pt expelled lg amt mushy ruff/brown stool.
[2019-09-07 06:10] LABS: Lactic Acid 0.9 mmol/L (0.4-2.0)
[2019-09-07] MEDS: SODIUM CHLORIDE 0.9% IV 1,000 ML 100 ML IV CONT (08:35)
--- NOTE | 2019-09-07 08:40 | PC.NURSE ---
Morphine given for pain in neck from turning in bed for test, states chronic pain and is an 8/10 at [facility] time
[2019-09-07] MEDS: POTASSIUM CHLORIDE 20 MEQ TABLET PO (09:58)
[2019-09-07] MEDS: PANTOPRAZOLE 40 MG TABLET PO ×2 (09:58→21:35)
[2019-09-07] MEDS: MAGNESIUM OXIDE 400 MG TABLET PO ×3 (09:59→16:11)
[2019-09-07] MEDS: PREGABALIN 50 MG CAPSULE 150 MG PO ×2 (09:59→16:10)
--- NOTE | 2019-09-07 10:22 | PC.NURSE ---
Clear liquid try to patient at this time
[2019-09-07] MEDS: METOCLOPRAMIDE HCL 10 MG TABLET PO (11:55)
[2019-09-07] MEDS: MAGNESIUM SULF 4 GM/WATER100ML 4 GM/100 ML BAG IVPB (12:07)
[2019-09-07 12:32] LABS: Iron 42 ug/dL (50-170); Percent Iron Saturation 20 % (12-57)
[2019-09-07 12:33] LABS: Thyroid Stimulating Hormone Reflex 1.79 u/IU/mL (0.36-3.74)
[2019-09-07 12:34] LABS: BNP 103 pg/mL (0-100)
[2019-09-07] MEDS: POLYSACCHARIDE IRON COMPLEX 150 MG CAPSULE PO ×2 (13:51→16:10)
[2019-09-07] MEDS: FAMOTIDINE 20 MG TABLET PO ×2 (13:51→21:35)
--- NOTE | 2019-09-07 14:09 | PC.NURSE ---
In bed with HOB elevated, NS discontinued today, taking oral fluids well
[2019-09-07] MEDS: SUCRALFATE SUSP 100 MG/ML 10 ML UDC 1000 MG PO ×2 (16:10→21:34)
--- NOTE | 2019-09-07 16:53 | P.PNIM_ITS ---
Progress Note: A&P Assessment and Plan (1) Vomiting and diarrhea: Code(s): R11.10 - Vomiting, unspecified; R19.7 - Diarrhea, unspecified Status: Acute Assessment and Plan: * Denies any current nausea vomiting or diarrhea * will advance diet as tolerated * ordered a clear liquid diet and she did well for lunch, advanced her to a full liquid diet for supper, and then advanced her to a regular diet for gabrielle orr morning for breakfast. * possibly secondary to pancreatitis versus viral infection, Her lipase levels have now returned to normal and her symptoms appear to have resolved so likely related to some pancreatitis. * continue Zofran and Reglan , was able to discontinue the Reglan today to avoid any extra side effects. * C diff negative * discontinued. IV hydration * lactic acid now within limits; was high on admission (2) Compromised kidney function: Code(s): N28.9 - Disorder of kidney and ureter, unspecified Status: Acute Assessment and Plan: * worsen due to dehydration But continuing to improve now, especially after IV fluids. * creatinine on admission 2.44 currently 1.35 has improved * will continue to monitor renal function * avoid nephrotoxins agents * will renal dose all medication * will continue fluid challenge * PATIENT CREATININE BACK AND 09/15/2018 WAS 1.48 WILL ASSUME THIS IS PATIENT'S BASELINE. (3) Weakness: Code(s): R53.1 - Weakness Status: Acute Assessment and Plan: * secondary to dehydration due to nausea vomiting and diarrhea versus viral infection * will continue to treat underlying cause * will possibly start PT OT once COVID-19 is negative * She is COVID negative and does not have COVID per testing. I do not feel that she has COVID as well as her lung sounds are not productive she does not have a cough she does not have a fever. * I have ordered PT and OT to evaluate and see her today * (4) Insomnia: Code(s): G47.00 - Insomnia, unspecified Status: Acute Assessment and Plan: * restarted trazodone * no complaints today (5) Tobacco dependence: Code(s): F17.200 - Nicotine dependence, unspecified, uncomplicated Status: Acute Assessment and Plan: * patient declines nicotine patch * patient educated on smoking cessation * no complaints or withdrawal symptoms noted today (6) Chronic neck pain: Code(s): M54.2 - Cervicalgia; G89.29 - Other chronic pain Status: Acute Assessment and Plan: * controlled * started IV pain medication * no complaints today and she will need to follow-up with her paintings restorer after discharge (7) HTN (hypertension): Code(s): I10 - Essential (primary) hypertension Status: Acute Assessment and Plan: * blood pressure has improved and is currently within normal limits * continue Vital Signs scheduled * will adjust medication as needed * will continue to monitor (8) Elevated lipase: Code(s): R74.8 - Abnormal levels of other serum enzymes Status: Acute Assessment and Plan: * possibly secondary to pancreatitis * patient does have a history of ETOH abuse * lipase slightly elevated at 710 and then improved to normal levels today. * CT of the abdomen indicate 1. 7 mm stone in the left renal pelvis without significant hydronephrosis.,Bilateral nephrolithiasis,Subendocardial fat deposition in the left ventricular apex, consistent with prior myocardial infarction. Will order a KUB for morning. May have to order an
--- NOTE | 2019-09-07 16:53 | PM.IMPN ---
Progress Note: A&P Assessment and Plan (1) Vomiting and diarrhea: Code(s): R11.10 - Vomiting, unspecified; R19.7 - Diarrhea, unspecified Status: Acute Assessment and Plan: Denies any current nausea vomiting or diarrhea will advance diet as tolerated ordered a clear liquid diet and she did well for lunch, advanced her to a full liquid diet for supper, and then advanced her to a regular diet for tomorrow morning for breakfast. possibly secondary to pancreatitis versus viral infection, Her lipase levels have now returned to normal and her symptoms appear to have resolved so likely related to some pancreatitis. continue Zofran and Reglan , was able to discontinue the Reglan today to avoid any extra side effects. C diff negative discontinued. IV hydration lactic acid now within limits; was high on admission (2) Compromised kidney function: Code(s): N28.9 - Disorder of kidney and ureter, unspecified Status: Acute Assessment and Plan: worsen due to dehydration But continuing to improve now, especially after IV fluids. creatinine on admission 2.44 currently 1.35 has improved will continue to monitor renal function avoid nephrotoxins agents will renal dose all medication will continue fluid challenge PATIENT CREATININE BACK AND 09/15/2018 WAS 1.48 WILL ASSUME THIS IS PATIENT'S BASELINE. (3) Weakness: Code(s): R53.1 - Weakness Status: Acute Assessment and Plan: secondary to dehydration due to nausea vomiting and diarrhea versus viral infection will continue to treat underlying cause will possibly start PT OT once COVID-19 is negative She is COVID negative and does not have COVID per testing. I do not feel that she has COVID as well as her lung sounds are not productive she does not have a cough she does not have a fever. I have ordered PT and OT to evaluate and see her today (4) Insomnia: Code(s): G47.00 - Insomnia, unspecified Status: Acute Assessment and Plan: restarted trazodone no complaints today (5) Tobacco dependence: Code(s): F17.200 - Nicotine dependence, unspecified, uncomplicated Status: Acute Assessment and Plan: patient declines nicotine patch patient educated on smoking cessation no complaints or withdrawal symptoms noted today (6) Chronic neck pain: Code(s): M54.2 - Cervicalgia; G89.29 - Other chronic pain Status: Acute Assessment and Plan: controlled started IV pain medication no complaints today and she will need to follow-up with her heel painter after discharge (7) HTN (hypertension): Code(s): I10 - Essential (primary) hypertension Status: Acute Assessment and Plan: blood pressure has improved and is currently within normal limits continue Vital Signs scheduled will adjust medication as needed will continue to monitor (8) Elevated lipase: Code(s): R74.8 - Abnormal levels of other serum enzymes Status: Acute Assessment and Plan: possibly secondary to pancreatitis patient does have a history of ETOH abuse lipase slightly elevated at 710 and then improved to normal levels today. CT of the abdomen indicate 1. 7 mm stone in the left renal pelvis without significant hydronephrosis.,Bilateral nephrolithiasis,Subendocardial fat deposition in the left ventricular apex, consistent with prior myocardial infarction. Will order a KUB for morning. May have to order another CT scan to see if the stone has moved. will continue to monitor ultrasound of the right upper quadrant showed fatty liver disease and gallbladder sludge. Subjective Date/time seen: 09/07/19 16:53 Nanda gonzalez was sitting on the side of her bed when I went to see her today. She is able to get up and down per nursing staff but does have chronic pain issues and sees a heel painter outpatient
--- NOTE | 2019-09-07 18:35 | PM.EVENT ---
Event Note Event Note Event Note: Chart reviewed. Discussed with Ann Marie Hyatt and reviewed note. Admission symptoms have resolved (n/v/d/abd. pain). Acute on chronic kidney disease improving. Feels weak, able to walk to commode but not further, can't feel feet . 0) Sitting in chair. NAD; 2+ pretibial edema. Light touch intact L and R feet. Great toe proprioception intact on right. No proprioception on left. Abd.: minor tenderness across lower abdomen without guarding. A) Biggest zaki now is her weakness and leg soreness. P) Agree with note and plan outlined by Ann Marie Hyatt. Pt. states insurance will not pay for swing bed. Does not want to go to ..
[2019-09-07 19:59] LABS: Add Urine Microscopic? YES; Appearance Urine Clear (Clear); Bilirubin Urine Negative (Negative); Blood Urine 2+ (Negative); Color Urine Yellow (Yellow); Glucose Urine UA Negative (Negative); Ketones Urine Negative (Negative); Leukocyte Esterase Ur Trace LEU/UL (Negative); Nitrate Urine Negative (Negative); Protein Urine Negative (Negative); Specific Grav Ur 1.015 (1.010-1.020); Urobilinogen Urine 0.2 mg/dL (0.2-1.0); pH Urine 5.5 (5.0-8.0)
[2019-09-07 20:28] LABS: Bacteria Urine Trace /hpf; RBC Urine 0-2 /hpf (0-2); Squamous Epithelial Cell Urine Occasional /hpf (Few); WBC Urine 0-3 /hpf (0-3)
[2019-09-07] MEDS: CYCLOBENZAPRINE HCL 10 MG TABLET PO (21:35)
[2019-09-07] MEDS: TRAZODONE HCL 50 MG TABLET PO (21:35)
--- NOTE | 2019-09-07 22:18 | PC.NURSE ---
pt requests iv be removed due to tenderness, pt does understand possibility of having another iv placed tomorrow, removed catheter intact
--- NOTE | 2019-09-08 03:11 | PC.NURSE ---
Remains asleep on hourly rounds. Resp deep & even. No signs of distress noted.
[2019-09-08 04:00] VITALS: BP 106/76; PULSE 76; RESP 20; TEMP 36.4; O2SAT 98
[2019-09-08 05:37] LABS: Hematocrit 26.2 % (35.0-49.0); Hemoglobin 8.8 g/dL (12.0-15.0); Mean Corpuscular HGB Conc 33.6 g/dL (32.0-36.0); Mean Corpuscular Hemoglobin 38.3 pg (27.0-31.0); Mean Corpuscular Volume 113.9 fL (78.0-102.0); Platelet Count Result 140 K/mm3 (150-420); Red Cell Distribution Width 17.3 % (11.6-14.4); White Blood Count 7.5 K/mm3 (4.8-10.8)
--- NOTE | 2019-09-08 05:44 | PC.NURSE ---
Voided x2 this shift. Urine strained neg for calculi
[2019-09-08 06:04] LABS: Alanine Aminotransferase 17 U/L (14-59); Albumin Level 2.1 g/dL (3.4-5.0); Alkaline Phosphatase 107 U/L (46-116); Anion Gap 11.3 mmol/L (7-16); Aspartate Amino Transferase 29 U/L (15-37); Bilirubin,Total 0.8 mg/dL (0.00-1.00); Blood Urea Nitrogen 10 mg/dL (7-18); Calcium 7.8 mg/dL (8.5-10.1); Carbon Dioxide 25 mmol/L (21-32); Chloride 103 mmol/L (98-108); Estimated CRCL calculation 60 ml/min; Estimated Glomerular Filt Rate 44; Glucose 84 mg/dL (70-99); Osmolality Calculated 278 mOsm/kg (285-295); Potassium 4.3 mmol/L (3.5-5.1); Sodium 135 mmol/L (136-145)
[2019-09-08] MEDS: SUCRALFATE SUSP 100 MG/ML 10 ML UDC 1000 MG PO ×2 (06:13→12:11)
[2019-09-08 07:35] VITALS: BP 113/70; PULSE 72; RESP 16; TEMP 36.6; O2SAT 98
[2019-09-08 07:36] VITALS: BP 114/69; PULSE 80; RESP 18; O2SAT 97
[2019-09-08] MEDS: CHOLECALCIFEROL 1,000 UNIT TABLET 1000 UNITS PO (08:26)
[2019-09-08] MEDS: POLYSACCHARIDE IRON COMPLEX 150 MG CAPSULE PO (08:26)
[2019-09-08] MEDS: POTASSIUM CHLORIDE 20 MEQ TABLET PO (08:26)
[2019-09-08] MEDS: FAMOTIDINE 20 MG TABLET PO (08:26)
[2019-09-08] MEDS: PREGABALIN 50 MG CAPSULE 150 MG PO (08:27)
[2019-09-08] MEDS: PANTOPRAZOLE 40 MG TABLET PO (08:27)
--- NOTE | 2019-09-08 09:07 | PC.NURSE ---
0845 Radiation up to room to do obstruction series xray of abdomen. So far no complaints of abdomen pain or n/v. Patient sitting up on side of bed. Gets up to bathroom or commode per self.
[2019-09-08 09:15] VITALS: PULSE 116; O2SAT 98
[2019-09-08 09:16] VITALS: PULSE 136; O2SAT 98
--- NOTE | 2019-09-08 09:27 | HOMEO2EVAL ---
Home Oxygen Evaluation RC: Home Oxygen (O2) Evaluation Start: 09/08/19 08:17 Freq: ONCE Status: Active Protocol: RPE Activity Type Activity Date Activity User E-Sign Co-Sign Detail Recorded Client Recorded Date Recorded By Document 09/08/19 09:15 RANDALL [id number] 09/08/19 09:27 SJB Document 09/08/19 09:16 SJB [id number] 09/08/19 09:27 SJB 09/08/19 09/08/19 09:15 09:16 Home O2 Evaluation Test Phase Resting Oxygen Delivery Autopap Pulse Oximetry (90-100 %) 98 98 Pulse Rate (60-100 beats/min) 116 H 136 H Activity Tolerance Fair Rating of Perceived Dyspnea (PD) +1 Mild, +1 Mild, Noticeable to Noticeable to the Participant the Participant but Not to an but Not to an Observer Observer Rate of Perceived Exertion (PE) 15 Hard Ambulation Distance (feet) 150 Home Oxygen Evaluation Comments PT WILL BEGIN JOSSELIN FAIRLY WELL WALK NOW. , HAS NOT BEEN UP WALKING FOR AWHILE. SP02S REMAINED BETWEEN 97% AND 100% ON ROOM AIR. HR WAS BETWEEN 116-136 . Treatment Charges O2 Evaluation
[2019-09-08] MEDS: MAGNESIUM OXIDE 400 MG TABLET PO ×2 (10:33→12:11)
[2019-09-08 12:00] VITALS: BP 110/63; PULSE 88; RESP 16; TEMP 36.4; O2SAT 98
--- NOTE | 2019-09-08 13:01 | P.DS_ITS ---
DS: Diagnosis Admitting Diagnosis Admitting Diagnosis: Vomiting, unspecified Discharge Diagnosis (1) Vomiting and diarrhea: Code(s): R11.10 - Vomiting, unspecified; R19.7 - Diarrhea, unspecified Status: Acute Assessment and Plan: * Denies any current nausea vomiting or diarrhea * Tolerated advancing her diet over the last 2 days quite well, has had 2 regular meals with no complaints. * yesterday ordered a clear liquid diet and she did well for lunch, advanced her to a full liquid diet for supper, and then advanced her to a regular diet for todays breakfast and lunch * possibly secondary to pancreatitis versus viral infection, Her lipase levels have now returned to normal and her symptoms appear to have resolved so likely related to some pancreatitis or gall bladder dysfxn. * continue Zofran , was able to discontinue the Reglan today to avoid any extra side effects. * C diff negative * discontinued. IV hydration, maintaining good hydration with orals * lactic acid now within limits; was high on admission (2) Compromised kidney function: Code(s): N28.9 - Disorder of kidney and ureter, unspecified Status: Acute Assessment and Plan: * worsen due to dehydration But continuing to improve now, especially after IV fluids. * creatinine on admission 2.44; currently 1.26 for the last 2 days. * will continue to monitor renal function * avoid nephrotoxins agents * will renal dose all medication * will continue fluid challenge * PATIENT CREATININE BACK AND 09/15/2018 WAS 1.48 WILL ASSUME THIS IS PATIENT'S BASELINE. * advised patient to F/U with a Account Engineer due to this Acute on Chronic Renal Failure and her multiple bilteral kidney stones. (3) Weakness: Code(s): R53.1 - Weakness Status: Acute Assessment and Plan: * secondary to dehydration due to nausea vomiting and diarrhea versus viral infection * will continue to treat underlying cause * will possibly start PT OT once COVID-19 is negative * She is COVID negative and does not have COVID per testing. I do not feel that she has COVID as well as her lung sounds are not productive she does not have a cough she does not have a fever. * I have ordered PT and OT to evaluate and see her, they had no concerns with her ability to go home, but stated that patient would benefit from outpatient PT due to overall de-conditioning. * patient ambulated at least 150 feet with the Respiratory therapist today, and maintained adequate O2 sats. * ordered outpatient PT and F/U with PCP. * encouraged patient to increase her ambulation every day, in small increments such as 2-5 minutes after every meal. (4) Insomnia: Code(s): G47.00 - Insomnia, unspecified Status: Acute Assessment and Plan: * restarted trazodone * no complaints today (5) Tobacco dependence: Code(s): F17.200 - Nicotine dependence, unspecified, uncomplicated Status: Acute Assessment and Plan: * patient declines nicotine patch * patient educated on smoking cessation * no complaints or withdrawal symptoms noted today (6) Chronic neck pain: Code(s): M54.2 - Cervicalgia; G89.29 - Other chronic pain Status: Acute Assessment and Plan: * controlled * started IV pain medication * no complaints today and she will need to follow-up with her electrostatic paint operator after discharge (7) HTN (hypertension): Code(s): I10 - Essential (primary) hypertension Status: Acute Assessment and Plan: * blood pressure has improved
--- NOTE | 2019-09-08 13:01 | PM.DS ---
DS: Diagnosis Admitting Diagnosis Admitting Diagnosis: Vomiting, unspecified Discharge Diagnosis (1) Vomiting and diarrhea: Code(s): R11.10 - Vomiting, unspecified; R19.7 - Diarrhea, unspecified Status: Acute Assessment and Plan: Denies any current nausea vomiting or diarrhea Tolerated advancing her diet over the last 2 days quite well, has had 2 regular meals with no complaints. yesterday ordered a clear liquid diet and she did well for lunch, advanced her to a full liquid diet for supper, and then advanced her to a regular diet for todays breakfast and lunch possibly secondary to pancreatitis versus viral infection, Her lipase levels have now returned to normal and her symptoms appear to have resolved so likely related to some pancreatitis or gall bladder dysfxn. continue Zofran , was able to discontinue the Reglan today to avoid any extra side effects. C diff negative discontinued. IV hydration, maintaining good hydration with orals lactic acid now within limits; was high on admission (2) Compromised kidney function: Code(s): N28.9 - Disorder of kidney and ureter, unspecified Status: Acute Assessment and Plan: worsen due to dehydration But continuing to improve now, especially after IV fluids. creatinine on admission 2.44; currently 1.26 for the last 2 days. will continue to monitor renal function avoid nephrotoxins agents will renal dose all medication will continue fluid challenge PATIENT CREATININE BACK AND 09/15/2018 WAS 1.48 WILL ASSUME THIS IS PATIENT'S BASELINE. advised patient to F/U with a Metal Casket Assembler due to this Acute on Chronic Renal Failure and her multiple bilteral kidney stones. (3) Weakness: Code(s): R53.1 - Weakness Status: Acute Assessment and Plan: secondary to dehydration due to nausea vomiting and diarrhea versus viral infection will continue to treat underlying cause will possibly start PT OT once COVID-19 is negative She is COVID negative and does not have COVID per testing. I do not feel that she has COVID as well as her lung sounds are not productive she does not have a cough she does not have a fever. I have ordered PT and OT to evaluate and see her, they had no concerns with her ability to go home, but stated that patient would benefit from outpatient PT due to overall de-conditioning. patient ambulated at least 150 feet with the Respiratory therapist today, and maintained adequate O2 sats. ordered outpatient PT and F/U with PCP. encouraged patient to increase her ambulation every day, in small increments such as 2-5 minutes after every meal. (4) Insomnia: Code(s): G47.00 - Insomnia, unspecified Status: Acute Assessment and Plan: restarted trazodone no complaints today (5) Tobacco dependence: Code(s): F17.200 - Nicotine dependence, unspecified, uncomplicated Status: Acute Assessment and Plan: patient declines nicotine patch patient educated on smoking cessation no complaints or withdrawal symptoms noted today (6) Chronic neck pain: Code(s): M54.2 - Cervicalgia; G89.29 - Other chronic pain Status: Acute Assessment and Plan: controlled started IV pain medication no complaints today and she will need to follow-up with her paint prepper after discharge (7) HTN (hypertension): Code(s): I10 - Essential (primary) hypertension Status: Acute Assessment and Plan: blood pressure has improved and is currently within normal limits continue Vital Signs scheduled will adjust medication as needed will continue to monitor (8) Elevated lipase: Code(s): R74.8 - Abnormal levels of other serum enzymes Status: Acute Assessment and Plan: possibly secondary to pancreatitis patient does have a history of ETOH abuse lipase slightly elevated at 710 and then improved to norm
[2019-09-08 13:39] LABS: Occult Blood Positive (Negative)
[2019-09-08] MEDS: LORATADINE 10 MG TABLET PO (14:03)
[2019-09-08] MEDS: HYDROCORTISONE 1% 30 GM CREAM 1 APPLIC TOPICAL (14:11)
--- NOTE | 2019-09-08 14:42 | PC.NURSE ---
Went over discharge instructions with patient with verbal understanding. Awaiting for ride.
--- NOTE | 2019-09-08 19:20 | PM.EVENT ---
Event Note Event Note Event Note: Patient states that she no longer has abdominal pain and nausea while taking her medications however she continues to feel weak. Alert and oriented to month and year. No acute distress. Mucous membranes moist. regular rate rhythm without murmur or gallop. Lungs are clear to auscultation bilaterally. Abdomen is mildly diffusely tender but has no guarding, masses. Positive bowel sounds. No extremity edema. Physical therapy has cleared her to go home with as far as her functioning goes. will discharge her old medications and close follow-up. I have examined the patient reviewed the chart. I discussed patient's care with A Edmar VELAZQUEZ and agree with her assessment and plan.
[2019-09-10 12:33] LABS: Red Blood Cell Folate 185 ng/mL RBC (>280)
== END 2019-09-08 15:00 | disposition home or self-care (01) | DRG 422 ==
LOC: CHSED 17:22 → CHS2ND 17:31
PROVIDERS: Nurse Practitioner; Admitting Provider Emergency Medicine; Emergency Provider Emergency Medicine; Visit Provider Emergency Medicine
DX: E86.0 Dehydration (principal); R19.7 Diarrhea, unspecified; R11.10 Vomiting, unspecified; E55.9 Vitamin D deficiency, unspecified; E83.42 Hypomagnesemia; R74.8 Abnormal levels of other serum enzymes; N20.0 Calculus of kidney; M62.81 Muscle weakness (generalized); I12.9 Hypertensive chronic kidney disease with stage 1 through stage 4 chronic kidney disease, or unspecified chronic kidney disease; N18.9 Chronic kidney disease, unspecified; M54.2 Cervicalgia; G89.29 Other chronic pain; L25.9 Unspecified contact dermatitis, unspecified cause; F17.210 Nicotine dependence, cigarettes, uncomplicated
CPT/HCPCS: 36415; 74018; 74176; 76705; 80053; 81001; 82150; 82272; 82550; 82747; 83540; 83550; 83605; 83690; 83735; 83880; 84443; 84478; 85014; 85018; 85025; 85027; 86140; 86850; 86900; 86901; 87040; 87324; 87635; 94618; 96361; 96365; 96374; 96375; 96376; 97110; 97161; 97165; 97535; 99284; 99285; A9270; C9113; G0378; G0379; J2270; J2765; J3475; J7030; J7042; U0003

== ENCOUNTER 2019-10-13 10:32 | Emergency (ER) | payer OTHER, SELFPAY ==
--- NOTE | ~2019-10-13 | US_ITS ---
EXAMINATION: US arterial ankle brachial ind DATE: 10/13/2019 13:12 INDICATION: Peripheral arterial disease. TECHNIQUE: Segmental pressures and plethysmographic and Doppler waveforms of the brachial and lower e xtremity arteries were obtained. COMPARISON: None. FINDINGS: Right and left brachial artery pressures of 102 mm Hg and 88 mm Hg, respectively, are concordant (nor mal difference <= 30 mmHg). The right ankle-brachial index (CLOTILDE) is 0.97 (normal >= 0.9-1.0). The right great toe-brachial index (TBI) is 0.51 (normal >= 0.65). Arterial Doppler waveforms are triphasic at the ankle. The left CLOTILDE is 0.87. The left TBI is 0.50. Arterial Doppler waveforms are triphasic at the ankle. IMPRESSION: 1. Mildly decreased ABIs and TBIs, consistent with arterial occlusive disease. Reviewed, dictated and finalized at location A.
--- NOTE | ~2019-10-13 | XR_ITS ---
XR chest 1V portable DATE: 10/13/2019 12:00 INDICATION: Shortness of breath, tachycardia TECHNIQUE: Portable upright AP chest on 11/09/2019 at 1159 hours COMPARISON: 03/02/2018 two-view chest FINDINGS: Normal heart size. No hilar or mediastinal enlargement. No pulmonary infiltrate or consolid ation, pleural effusion or pulmonary vascular congestion or pneumothorax is detected. IMPRESSION: No active cardiopulmonary disease Reviewed, dictated and finalized at location A.
--- NOTE | ~2019-10-13 | XR_ITS ---
XR foot LT min 3V DATE: 10/13/2019 12:00 INDICATION: Dorsal laceration weeks ago. Evaluate for subcutaneous gas, osteomyelitis. TECHNIQUE: 4 views COMPARISON: None FINDINGS: There is mild plantar and posterior calcaneal enthesopathy. No fracture, dislocation, periosteal reaction or bone destruction is evident. There is dorsal soft tissue swelling of the foot but no subcutaneous emphysema is evident. There is n o radiographic evidence of osteomyelitis. IMPRESSION: Dorsal soft tissue swelling of the foot; no subcutaneous emphysema or evidence of osteomy elitis Posterior and plantar and mild calcaneal enthesopathy Reviewed, dictated and finalized at location A. IMPRESSION: Dorsal soft tissue swelling of the foot; no subcutaneous emphysema or evidence of osteomyelitis Posterior and plantar and mild calcaneal enthesopathy
--- NOTE | ~2019-10-13 | NM_ITS ---
EXAMINATION: NM pulmonary perfusion DATE: 10/13/2019 13:43 INDICATION: Shortness of breath. TECHNIQUE: 5.0 mCi Tc-99m MAA was administered intravenously for perfusion images. Scintigraphic kamini ges of the chest were obtained. COMPARISON: Chest single view 10/13/2019 FINDINGS: Perfusion images show small defects in the upper lobes and lower lobes. There is a large defect in th e posterobasal segment left lower lobe. ] IMPRESSION: 1. Nondiagnostic (low or intermediate probability). Reviewed, dictated and finalized at location A.
--- NOTE | 2019-10-13 10:38 | ECG_ITS ---
Measurements Intervals [place] Rate: 120 P: 62 [place]: 167 QRS: 142 QRSD: 92 T: 50 QT: 319 QTc: 452 Interpretive Statements SINUS TACHYCARDIA RIGHT AXIS DEVIATION INCOMPLETE RIGHT BUNDLE BRANCH BLOCK POOR R WAVE PROGRESSION, ANTERIOR LEADS INFERIOR INFARCT, AGE INDETERMINATE ABNORMAL ECG Electronically Signed On 10-13-2019 12:47:25 CDT by Kumar Frankel D.O.
--- NOTE | 2019-10-13 10:43 | ED.GENADULT ---
HPI - General Adult General Chief complaint: Extremity Problem,Nontraumatic Stated complaint: Ambulance History of Present Illness HPI narrative: Cee is a 53F with a PMH of COPD, HTN, tobacco abuse, Occlusive DVT of left popliteal vein on 09/08 was brought into the ED by EMS for not feeling well. She reports fatigue, SOB, N/V on and off for the last few months. He hit her foot a few weeks ago and sustained a small cut which has progressed to a round wound on the top of her foot several cm in diameter. Over the last several days she has had progressivley worse fatigue, SOB, nausea and body aches. She can only walk 20ft with her walker before her legs give out. Related Data Home Medications Medication Instructions Recorded Confirmed cyclobenzaprine 10 mg tablet 10 mg PO BID PRN tablet 06/15/19 10/13/19 hydrocodone 10 mg-acetaminophen 1 tablet PO Q6H PRN 06/15/19 10/13/19 325 mg tablet pregabalin 150 mg capsule 150 mg PO BID 06/15/19 10/13/19 trazodone 50 mg tablet 50 mg PO DAILY tablet 06/15/19 10/13/19 albuterol sulfate 1.25 mg INHALATION Q4H PRN 09/03/19 10/13/19 Allergies Allergy/AdvReac Type Severity Reaction Status Date / Time No Known Allergies Allergy Verified 10/01/19 06:42 Review of Systems Constitutional: Constitutional: Reports chills, Reports fatigue, Denies fever(s) and Reports weakness Eyes: Eyes: Reports no additional eye complaints ENT: Reports system reviewed and no additional complaints, except as documented Cardiovascular: Cardiovascular: Denies chest pain, Reports rapid heart rate and Denies radiating jaw, neck or arm pain Respiratory: Respiratory: Reports cough and Reports dyspnea Gastrointestinal: Gastrointestinal: Denies diarrhea, Reports nausea and Denies vomiting Genitourinary: Genitourinary: Denies hematuria and Denies dysuria Musculoskeletal: Musculoskeletal: Reports as per HPI Integumentary/Breasts: Skin/Breast: Reports as per HPI Neurologic: Reports system reviewed and no additional complaints, except as documented Psychiatric: Psychiatric: Reports no additional psychiatric complaints Endocrine: Endocrine: Reports no additional endocrine complaints Hematologic/Lymphatic: Hematologic/Lymphatic: Reports no additional hematologic/lymphatic complaints Allergic/Immunologic: Allergic/Immunologic: Reports no additional allergic/immunologic complaints PMFSH Past Medical History Medical History Chronic neck pain Compromised kidney function HTN (hypertension) Insomnia Tobacco dependence Vitamin D deficiency Surgical History Surgical History Hx of colonoscopy 02/2019 Family History Family History Mother Diabetes mellitus Social History Social History Smoking packs per day: 0.5 Smoking cigarettes per day: 10.0 Smoking status: Current every day smoker Tobacco type: cigarettes Second hand tobacco smoke exposure: Yes Alcohol intake: former Substance use: never Substance use type: does not use Gender identity (if verbalized by the patient): Female Spiritual care concerns: No Agree to blood products: Yes Exam Const: General: alert Orientation/consciousness: patient oriented x3 Other: In mild distress HENMT: Other: Normocephalic, atraumatic Eyes: Conjunctivae: conjunctivae normal Pupils: Equal, round and reactive pupils present Neck: Neck: normal visual inspection Chest: Chest palpation & inspection: normal inspection of the chest Resp: Effort & Inspection: normal respiratory effort, not labored and tachypneic Auscultation: clear to auscultation bilaterally Cardio: Rate: regular rate and tachycardic Rhythm: regular rhythm Heart sounds: no murmurs GI: GI Palp: Yes Soft to palpation, No Tenderness to palpation pres
[2019-10-13] MEDS: SODIUM CHLORIDE 0.9% IV 1,000 ML 999 ML IV CONT ×3 (10:58→12:07)
[2019-10-13 11:06] VITALS: BP 79/43; PULSE 121; RESP 16; TEMP 36.6; O2SAT 100
[2019-10-13 11:08] LABS: Basophils Absolute Auto 0.02 K/mm3 (0.00-0.10); Basophils Percent Auto 0.3 % (0.0-1.0); Eosinophils Percent Auto 1.6 % (1.0-6.0); Hematocrit 28.8 % (35.0-49.0); Hemoglobin 9.9 g/dL (12.0-15.0); Immature Granulocyte Absolute 0.05 K/mm3 (0.00-0.00); Immature Granulocyte Percent A 0.8 % (0.0-0.0); Mean Corpuscular HGB Conc 34.4 g/dL (32.0-36.0); Mean Corpuscular Hemoglobin 37.5 pg (27.0-31.0); Mean Corpuscular Volume 109.1 fL (78.0-102.0); Mean Platelet Volume 11.6 fl (9.2-11.8); Monocytes Absolute Auto 0.53 K/mm3 (0.10-0.90); Monocytes Percent Auto 8.6 % (2.0-11.0); Neutrophils Absolute Auto 3.9 K/mm3 (1.7-7.2); Neutrophils Percent Auto 62.7 % (50.0-70.0); Nucleated Red Blood Cells Absolute Auto 0.03 K/mm3 (0.00-0.00); Nucleated Red Blood Cells Perc 0.5 % (0-0.0); Platelet Count Result 188 K/mm3 (150-420); Red Blood Count 2.64 M/mm3 (4.20-5.40); Red Cell Distribution Width 17.9 % (11.6-14.4); White Blood Count 6.2 K/mm3 (4.8-10.8)
[2019-10-13 11:15] LABS: Prothrombin Time 10.2 Seconds (9.64-11.0)
[2019-10-13 11:27] LABS: BNP 43.7 pg/mL (0-100)
[2019-10-13 11:30] LABS: Alanine Aminotransferase 21 U/L (14-59); Albumin Level 2.9 g/dL (3.4-5.0); Alkaline Phosphatase 160 U/L (46-116); Anion Gap 17.2 mmol/L (7-16); Aspartate Amino Transferase 46 U/L (15-37); Bilirubin,Total 0.8 mg/dL (0.00-1.00); Blood Urea Nitrogen 34 mg/dL (7-18); Calcium 9.1 mg/dL (8.5-10.1); Carbon Dioxide 25 mmol/L (21-32); Chloride 92 mmol/L (98-108); Creatine Kinase 16 U/L (26-192); Estimated Glomerular Filt Rate 19; Glucose 104 mg/dL (70-99); Osmolality Calculated 279 mOsm/kg (285-295); Potassium 3.2 mmol/L (3.5-5.1); Sodium 131 mmol/L (136-145); Total Protein 7.2 g/dL (6.4-8.2); Troponin I < 0.02 ng/mL (0.00-0.056)
[2019-10-13 11:41] LABS: Lactic Acid 3.6 mmol/L (0.4-2.0)
[2019-10-13 12:15] VITALS: BP 92/59; PULSE 103; O2SAT 100
[2019-10-13 14:10] VITALS: BP 115/57; PULSE 107; O2SAT 100
[2019-10-13] MEDS: HEPARIN SODIUM 5,000 UNITS/ML VIAL 5000 UNITS IV PUSH (15:53)
--- NOTE | 2019-10-13 16:03 | PHAR ---
HEPARIN BOLUS GIVEN 4,000 UNITS - HEPARIN INFUSION 20 ML/HR - UNABLE TO CHART IN MAR.
[2019-10-13 16:04] VITALS: BP 113/63; PULSE 101; RESP 16; O2SAT 100
--- NOTE | 2019-10-13 16:09 | PC.NURSE ---
HEPARIN INFUSING ON TRANSFER
== END 2019-10-13 16:35 | disposition short-term general hospital (02) ==
LOC: CHSED 10:34
PROVIDERS: Emergency Provider Family Medicine; PCP Family Medicine
DX: A41.9 Sepsis, unspecified organism (principal); N17.9 Acute kidney failure, unspecified; S91.302A Unspecified open wound, left foot, initial encounter; I82.522 Chronic embolism and thrombosis of left iliac vein; I70.90 Unspecified atherosclerosis; R06.02 Shortness of breath; R11.2 Nausea with vomiting, unspecified; J44.9 Chronic obstructive pulmonary disease, unspecified; I10 Essential (primary) hypertension; E55.9 Vitamin D deficiency, unspecified; F17.200 Nicotine dependence, unspecified, uncomplicated
CPT/HCPCS: 36415; 71045; 73630; 78580; 80053; 82550; 83605; 83880; 84484; 85025; 85610; 87040; 87070; 87077; 87186; 87205; 93005; 93922; 96361; 96365; 96367; 96375; 99285; A9270; A9540; J1644; J2543; J3370; J7030

== ENCOUNTER 2020-10-15 11:46 | Emergency (ER) | payer OTHER, SELFPAY ==
--- NOTE | ~2020-10-15 | XR_ITS ---
EXAMINATION: XR chest 2V EXAM DATE: 10/15/2020 12:57 INDICATION: Presyncope. TECHNIQUE: Frontal and lateral projections of the chest obtained and reviewed. There is no prior zonia dy for comparison. FINDINGS: The lungs are clear. There are no pleural effusions. The cardiomediastinal silhouette is within normal limits. There is no pneumothorax suspected. The bones and soft tissues are unremarkab le. IMPRESSION: No acute cardiopulmonary findings. Reviewed, dictated and finalized at location A.
[2020-10-15 11:58] VITALS: BP 166/79; PULSE 99; RESP 18; TEMP 36.4; O2SAT 97
--- NOTE | 2020-10-15 12:20 | ECG_ITS ---
Measurements Intervals [place] Rate: 87 P: 52 [place]: 199 QRS: 106 QRSD: 124 T: 42 QT: 301 QTc: 363 Interpretive Statements SINUS RHYTHM RIGHT AXIS DEVIATION POSSIBLE LEFT ATRIAL ENLARGEMENT INCOMPLETE RIGHT BUNDLE BRANCH BLOCK DELAYED PRECORDIAL R/S TRANSITION CONSIDER INFERIOR INFARCT, AGE INDETERMINATE BASELINE ARTIFACT- I, II, III, AVR, AVL, AVF, V1-V6 ABNORMAL ECG Electronically Signed On 10-16-2020 7:34:04 CDT by Kumar Frankel D.O.
[2020-10-15 12:45] LABS: Basophils Absolute Auto 0.05 K/mm3 (0.00-0.10); Basophils Percent Auto 0.4 % (0.0-1.0); Eosinophils Absolute Auto 0.19 K/mm3 (0.02-0.50); Eosinophils Percent Auto 1.5 % (1.0-6.0); Hematocrit 40.1 % (35.0-49.0); Hemoglobin 12.9 g/dL (12.0-15.0); Immature Granulocyte Absolute 0.09 K/mm3 (0.00-0.00); Immature Granulocyte Percent A 0.7 % (0.0-0.0); Lymphocytes Absolute Auto 2.19 K/mm3 (1.10-4.50); Lymphocytes Percent Auto 17.6 % (18.0-42.0); Mean Corpuscular HGB Conc 32.2 g/dL (32.0-36.0); Mean Corpuscular Hemoglobin 27.8 pg (27.0-31.0); Mean Corpuscular Volume 86.4 fL (78.0-102.0); Mean Platelet Volume 12.6 fl (9.2-11.8); Monocytes Absolute Auto 0.76 K/mm3 (0.10-0.90); Monocytes Percent Auto 6.1 % (2.0-11.0); Neutrophils Absolute Auto 9.2 K/mm3 (1.7-7.2); Neutrophils Percent Auto 73.7 % (50.0-70.0); Platelet Count Result 271 K/mm3 (150-420); Red Blood Count 4.64 M/mm3 (4.20-5.40); Red Cell Distribution Width 14.6 % (11.6-14.4); White Blood Count 12.4 K/mm3 (4.8-10.8)
[2020-10-15 12:54] LABS: Add Urine Microscopic? YES; Appearance Urine Sl Cloudy (Clear); Bilirubin Urine Negative (Negative); Blood Urine 1+ (Negative); Color Urine Yellow (Yellow); Glucose Urine UA Negative (Negative); Ketones Urine Negative (Negative); Leukocyte Esterase Ur 2+ LEU/UL (Negative); Nitrate Urine Negative (Negative); Protein Urine Negative (Negative); Specific Grav Ur 1.015 (1.010-1.020); Urobilinogen Urine 0.2 mg/dL (0.2-1.0); pH Urine 6.5 (5.0-8.0)
[2020-10-15 12:55] LABS: D Dimer 0.43 mg/L (0.19-0.50)
[2020-10-15 12:58] LABS: Bacteria Urine 2+ /hpf; Squamous Epithelial Cell Urine Few /hpf (Few)
[2020-10-15 13:07] LABS: Alanine Aminotransferase 17 U/L (14-59); Albumin Level 3.3 g/dL (3.4-5.0); Alkaline Phosphatase 107 U/L (46-116); Anion Gap 11 mmol/L (8-16); Aspartate Amino Transferase 14 U/L (15-37); Bilirubin,Total 0.3 mg/dL (0.00-1.00); Blood Urea Nitrogen 28 mg/dL (7-18); Calcium 9.1 mg/dL (8.5-10.1); Carbon Dioxide 30 mmol/L (21-32); Chloride 99 mmol/L (98-108); Estimated CRCL calculation 63 ml/min; Estimated Glomerular Filt Rate 38; Glucose 129 mg/dL (70-99); Osmolality Calculated 297 mOsm/kg (285-295); Sodium 140 mmol/L (136-145); Total Protein 7.5 g/dL (6.4-8.2); Troponin I 8.7 ng/L (0.00-60.4)
[2020-10-15 13:08] LABS: Potassium 2.1 mmol/L (3.5-5.1)
[2020-10-15 13:09] LABS: NT Pro B Type Natriuretic Pept 279 pg/mL (0-125)
[2020-10-15] MEDS: POTASSIUM BICARBONATE 25 MEQ TABEF 50 MEQ PO (13:40)
--- NOTE | 2020-10-15 14:08 | ED.WEAKNESS ---
HPI - Weakness General Chief complaint: Weakness Stated complaint: ambulance Time Seen by Provider: 10/15/20 12:08 Source: patient Mode of arrival: ambulatory Limitations: no limitations History of Present Illness HPI Narrative: Patient comes in with complaints of weakness, almost presyncope at home. She has felt weak for days, but this has been more severe today. she denies fever and chills and urinary frequency and urgency. She states she has been lightheaded at home, worse today. Complaint: generalized weakness Onset (ago): day(s) Duration: intermittent Location: generalized Migration: none Severity: moderate Relieving factors: rest Exacerbating factors: movement Associated symptoms: denies other symptoms Related Data Home Medications Medication Instructions Recorded Confirmed albuterol sulfate 1.25 mg INHALATION Q4H PRN 09/03/19 10/15/20 celecoxib [Celebrex] 100 mg PO BID 10/15/20 10/15/20 hydrochlorothiazide 25 mg PO DAILY 10/15/20 10/15/20 zolpidem 10 mg PO HS 10/15/20 10/15/20 Allergies Allergy/AdvReac Type Severity Reaction Status Date / Time No Known Allergies Allergy Verified 10/25/19 08:25 Review of Systems Constitutional: Constitutional: Reports fatigue Eyes: Eyes: Reports no additional eye complaints ENT: Reports system reviewed and no additional complaints, except as documented Cardiovascular: Cardiovascular: Reports no additional cardiovascular complaints Respiratory: Respiratory: Reports no additional respiratory complaints Gastrointestinal: Gastrointestinal: Reports no additional gastrointestinal complaints Genitourinary: Genitourinary: Reports no additional female genitourinary complaints Musculoskeletal: Musculoskeletal: Reports no additional musculoskeletal complaints Integumentary/Breasts: Skin/Breast: Reports system reviewed and no additional complaints, except as docu Neurologic: Reports system reviewed and no additional complaints, except as documented Psychiatric: Psychiatric: Reports no additional psychiatric complaints Endocrine: Endocrine: Reports no additional endocrine complaints Hematologic/Lymphatic: Hematologic/Lymphatic: Reports no additional hematologic/lymphatic complaints Allergic/Immunologic: Allergic/Immunologic: Reports no additional allergic/immunologic complaints [facility] Past Medical History Medical History (Updated 10/15/20 @ 14:11 by Brenton Khan MD) Chronic neck pain Compromised kidney function HTN (hypertension) Insomnia Tobacco dependence Vitamin D deficiency Surgical History Surgical History Hx of colonoscopy 02/2019 Family History Family History Mother Diabetes mellitus Social History Social History Smoking packs per day: 0.5 Smoking cigarettes per day: 10.0 Tobacco type: cigarettes Second hand tobacco smoke exposure: Yes Alcohol intake: former Substance use: never Substance use type: does not use Gender identity (if verbalized by the patient): Female Spiritual care concerns: No Agree to blood products: Yes Exam Const: General: no acute distress Orientation/consciousness: patient oriented x3 HENMT: Head: normal to inspection Ears: external ears normal General nose exam: Normal external nose present Mouth: Yes Normal oral and palatal mucosa present Throat: posterior oropharynx normal Eyes: Conjunctivae: conjunctivae normal Neck: Neck: normal visual inspection Chest: Chest palpation & inspection: normal inspection of the chest Resp: Effort & Inspection: normal respiratory effort Auscultation: clear to auscultation bilaterally Cardio: Rate: regular rate Rhythm: regular rhythm GI: GI Palp: Yes Soft to palpation (nontender) Back/Spine/Pelvis: Back: no CVA tenderness Skin: General skin exam: normal color Neuro: General: patient o
[2020-10-15 14:34] VITALS: BP 149/98; PULSE 82; RESP 20; TEMP 36.7; O2SAT 100
== END 2020-10-15 14:37 | disposition home or self-care (01) ==
PROVIDERS: Emergency Provider Emergency Medicine; PCP Family Medicine
DX: E87.6 Hypokalemia (principal); N39.0 Urinary tract infection, site not specified
CPT/HCPCS: 36415; 71046; 80053; 81001; 83735; 83880; 84484; 85025; 85380; 87086; 87088; 93005; 96365; 99283; 99284; A9270; J0696

== ENCOUNTER 2021-08-01 14:15 | Emergency (ER) | payer OTHER, SELFPAY ==
--- NOTE | ~2021-08-01 | XR_ITS ---
EXAMINATION: XR chest 1V portable 08/01/2021 14:37 INDICATION: Chest pain PROCEDURE: AP portable chest COMPARISON: Comparison to multiple prior studies sequentially, with oldest reviewed study dated 02/10. FINDINGS: The lungs are clear. The cardiomediastinal silhouette is within normal limits. There are no pleural effusions. There is no pneumothorax suspected. IMPRESSION: 1: NO ACUTE CARDIOPULMONARY DISEASE. Reviewed, dictated and finalized at location A.
[2021-08-01 14:20] VITALS: BP 175/120; PULSE 93; RESP 16; TEMP 36.1; O2SAT 98
--- NOTE | 2021-08-01 14:23 | ED.CHESTPAIN ---
HPI - Chest Pain General Chief Complaint: Chest Pain Stated Complaint: Ambulance Time Seen by Provider: 08/01/21 14:23 Source: patient History of Present Illness HPI narrative: 55-year-old female, smoker with a history of hypertension, CKD with a baseline creatinine 1.4, COPD, chronic neck pain presents to the 4 hour history of -- left-sided chest pain radiating to the neck. No nausea/ vomiting. No Shortness of breath or lightheadedness. Pain resolved after the EMS arrived. -- patient had an emotional reaction crying after start of her chest pain -- hypertension with a blood pressure of 175/120 MD complaint: chest pain Onset (ago): hour(s) ( started 4 hours ago) Timing of current episode: constant and other ( Acute onset with spontaneous resolution) Prior episodes: No Onset: during rest Pain location: substernal and left chest Pain radiation: neck Severity: severe Quality: aching Relieving factors: nothing Exacerbating factors: nothing Treatment prior to arrival: none Risk Factors Coronary artery disease risk factors: smoking history, hyperlipidemia and hypertension Thoracic aortic dissection risk factors: longstanding hypertension Pulmonary embolism risk factors: morbid obesity Related Data On Oral Contraceptives: No Home Medications Medication Instructions Recorded Confirmed albuterol sulfate 1.25 mg INHALATION Q4H PRN 09/03/19 10/15/20 celecoxib [Celebrex] 100 mg PO BID 10/15/20 10/15/20 hydrochlorothiazide 25 mg PO DAILY 10/15/20 10/15/20 zolpidem 10 mg PO HS 10/15/20 10/15/20 Allergies Allergy/AdvReac Type Severity Reaction Status Date / Time No Known Allergies Allergy Verified 10/25/19 08:25 Review of Systems Review of Systems: All systems reviewed & are unremarkable except as noted in HPI and below Constitutional: Constitutional: Reports as per HPI and Reports no additional constitutional complaints Eyes: Eyes: Reports as per HPI and Reports no additional eye complaints ENT: Reports system reviewed and no additional complaints, except as documented Comments: extensive dental caries Cardiovascular: Cardiovascular: Reports as per HPI, Reports chest pain and Reports radiating jaw, neck or arm pain Respiratory: Respiratory: Reports as per HPI and Reports no additional respiratory complaints Gastrointestinal: Gastrointestinal: Reports as per HPI and Reports no additional gastrointestinal complaints Genitourinary: Genitourinary: Reports no additional female genitourinary complaints Musculoskeletal: Musculoskeletal: Reports no additional musculoskeletal complaints and Reports as per HPI Comments: chronic neck pain Integumentary/Breasts: Skin/Breast: Reports system reviewed and no additional complaints, except as docu Neurologic: Reports system reviewed and no additional complaints, except as documented Psychiatric: Psychiatric: Reports no additional psychiatric complaints and Reports anxiety Comments: patient had an anxiety attack after the onset of chest pain Endocrine: Endocrine: Reports no additional endocrine complaints and Reports as per HPI Hematologic/Lymphatic: Hematologic/Lymphatic: Reports no additional hematologic/lymphatic complaints Allergic/Immunologic: Allergic/Immunologic: Reports no additional allergic/immunologic complaints and Reports as per HPI PMFSH Past Medical History Medical History (Updated 08/01/21 @ 19:07 by Yon Pearce MD) Chronic neck pain Compromised kidney function HTN (hypertension) Insomnia Tobacco dependence Vitamin D deficiency Surgical History Surgical History Hx of colonoscopy 02/2019 Family History Family History Mother Diabetes mellitus Social History Social History Smoking packs per day: 0.5 Smoking cigarettes per day: 10.0 Tobacco type: cigarettes Second hand t
--- NOTE | 2021-08-01 14:27 | ECG_ITS ---
Measurements Intervals [place] Rate: 82 P: 57 [place]: 189 QRS: 105 QRSD: 109 T: 61 QT: 362 QTc: 423 Interpretive Statements SINUS RHYTHM RIGHT AXIS DEVIATION PROBABLE INFERIOR MYOCARDIAL INFARCTION , OF INDETERMINATE AGE [35 ms Q WAVE IN II/aVF] ABNORMAL EKG COMPARED TO ECG 10/15/2020 12:43:13 NO SIGNIFICANT CHANGES Electronically Signed On 08-01-2021 17:52:07 CDT by Foreign Bellamy M.D.
[2021-08-01 14:44] LABS: Glucose Point of Care 94 mg/dl (65-105)
[2021-08-01 15:01] LABS: Basophils Absolute Auto 0.04 K/mm3 (0.00-0.10); Basophils Percent Auto 0.5 % (0.0-1.0); Eosinophils Absolute Auto 0.17 K/mm3 (0.02-0.50); Hematocrit 47.6 % (35.0-49.0); Immature Granulocyte Absolute 0.02 K/mm3 (0.00-0.00); Immature Granulocyte Percent A 0.2 % (0.0-0.0); Lymphocytes Absolute Auto 1.54 K/mm3 (1.10-4.50); Lymphocytes Percent Auto 18.1 % (18.0-42.0); Mean Corpuscular HGB Conc 31.5 g/dL (32.0-36.0); Mean Corpuscular Hemoglobin 27.1 pg (27.0-31.0); Mean Corpuscular Volume 86.1 fL (78.0-102.0); Mean Platelet Volume 12.9 fl (9.2-11.8); Monocytes Absolute Auto 0.66 K/mm3 (0.10-0.90); Monocytes Percent Auto 7.7 % (2.0-11.0); Neutrophils Absolute Auto 6.1 K/mm3 (1.7-7.2); Neutrophils Percent Auto 71.5 % (50.0-70.0); Platelet Count Result 245 K/mm3 (150-420); Red Blood Count 5.53 M/mm3 (4.20-5.40); Red Cell Distribution Width 17.2 % (11.6-14.4); White Blood Count 8.5 K/mm3 (4.8-10.8)
[2021-08-01] MEDS: ASPIRIN 81 MG CHEWABLE TABLET 324 MG PO (15:07)
[2021-08-01 15:16] LABS: Partial Thromboplastin Time 32.2 SEC (23.90-30.70); Prothrombin Time 10.9 Seconds (9.50-12.10)
[2021-08-01 15:25] LABS: Alanine Aminotransferase 22 U/L (14-59); Albumin Level 3.9 g/dL (3.4-5.0); Alkaline Phosphatase 109 U/L (46-116); Anion Gap 9 mmol/L (8-16); Aspartate Amino Transferase 19 U/L (15-37); Bilirubin,Total 0.4 mg/dL (0.00-1.00); Blood Urea Nitrogen 21 mg/dL (7-18); Calcium 9.3 mg/dL (8.5-10.1); Carbon Dioxide 27 mmol/L (21-32); Chloride 101 mmol/L (98-108); Estimated CRCL calculation 55 ml/min; Estimated Glomerular Filt Rate 33; Glucose 82 mg/dL (70-99); NT Pro B Type Natriuretic Pept 142 pg/mL (0-125); Osmolality Calculated 286 mOsm/kg (285-295); Potassium 3.9 mmol/L (3.5-5.1); Sodium 137 mmol/L (136-145); Total Protein 8.3 g/dL (6.4-8.2); Troponin I 6.4 ng/L (0.00-60.4)
[2021-08-01 17:29] LABS: Add Urine Microscopic? NO; Appearance Urine Clear (Clear); Bilirubin Urine Negative (Negative); Blood Urine Negative (Negative); Color Urine Yellow (Yellow); Glucose Urine UA Negative (Negative); Ketones Urine Negative (Negative); Leukocyte Esterase Ur Negative (Negative); Nitrate Urine Negative (Negative); Protein Urine Negative (Negative); Urobilinogen Urine 0.2 mg/dL (0.2-1.0); pH Urine 6.5 (5.0-8.0)
--- NOTE | 2021-08-01 18:17 | ECG_ITS ---
Measurements Intervals [place] Rate: 74 P: 51 [place]: 187 QRS: 105 QRSD: 110 T: 61 QT: 375 QTc: 417 Interpretive Statements SINUS RHYTHM POSSIBLE RIGHT VENTRICULAR HYPERTROPHY [SOME/ALL OF: PROMINENT R IN V1, LATE TRANSITION, RAD, MARLENE, SSS] POSSIBLE INFERIOR MYOCARDIAL INFARCTION , PROBABLY OLD [30 ms Q WAVE IN II/aVF] ABNORMAL ECG COMPARED TO ECG 08/01/2021 14:50:42 NO SIGNIFICANT CHANGES Electronically Signed On 08-02-2021 15:33:10 CDT by Foreign Bellamy M.D.
[2021-08-01 18:58] LABS: Troponin I 7.1 ng/L (0.00-60.4)
[2021-08-01 19:10] VITALS: BP 148/91; PULSE 80; RESP 16; TEMP 36.4; O2SAT 97
== END 2021-08-01 19:18 | disposition home or self-care (01) ==
PROVIDERS: Emergency Provider Internal Medicine Critical Care Medicine; PCP Physician Assistant
DX: R07.9 Chest pain, unspecified (principal); F41.9 Anxiety disorder, unspecified; N18.32 Chronic kidney disease, stage 3b
CPT/HCPCS: 36415; 71045; 80053; 81003; 82948; 83880; 84484; 85025; 85380; 85610; 85730; 93005; 99284; A9270

== ENCOUNTER 2022-03-04 10:28 | Outpatient (RCR) | payer OTHER, SELFPAY ==
--- NOTE | 2022-03-04 12:05 | PTOPEVAL1 ---
Assessment and note entered by Karina León DPT Evaluation Information Assessment Status Evaluation Diagnosis Weakness, dorsalgia Onset 02/27/2022 Subjective Information Pt reports that she had a fall about 2 years ago. She ended up going to a hospital and then a jail. She reports that after all of this long journey with pain and weakness, she notes a lot of weakness in her legs. She reports in addition to the weakness, she is noticing some back pain. She feels this is mostly because she has been limited in her mobility. She feels more limited in her leg strength than her endurance. Pt reports that before this fall, she had not had any falls. She uses a 4WW now for mobility but had no AD before the fall. She reports she has several steps with a handrail to enter her home. She notes that she feels limited in balance as well as she furniture surfs. She wants to be able to get stronger to return to [employer] again to work out. She would also like to be able to walk without her 4WW. Reported Pain Level Pain Score 5: Self Report Assessment PT Clinical Summary Pt presents to physical therapy with back pain and demonstrates decreased functional strength, decreased endurance, decreased functional mobility , and impaired static and dynamic balance. 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 She was provided with an HEP focused on improving strength and endurance within her tolerance. She will benefit from skilled PT to facilitate symptom relief, improve the aforementioned impairments, return to functional and recreational activities, and decrease risk for falls. Plan of Care Interventions Electrical Stimulation,Gait Training,Hot Pack/Cold Pack,Manual Therapy,Neuro Re-education,Patient/ Caregiver Educati,Therapeutic Activities, Therapeutic Exercise PT Services Indicated Yes Treatment Frequency and 2x week for 6 more visits Duration These treatments will address the objective and functional deficits as defined above. The patient will be advanced safely and appropriately in order for the patient to progress towards his/her prior level of function. Additional exercises will be introduced and as well as a comprehensive home exercise program upon discharge, if needed, ?to ensure carryover of functional gains achieved in the clinic. This
--- NOTE | 2022-03-25 12:14 | PTOPEVAL1 ---
Assessment and note entered by Karina León DPT Evaluation Information Assessment Status Progress Diagnosis Weakness, dorsalgia Onset 02/27/2022 Subjective Information Pt reports that her L knee has been bothering her a lot more recently. She reports continued difficulty with stepping up and standing up activities. She has not yet returned to the gym but plans to return in April. Reported Pain Level Pain Score 8,3: Self Report Assessment PT Clinical Summary Pt presents to physical therapy with significant improvements in strength and static balance since her initial evaluation. She is still limited by pain in her L knee and demonstrates maintenance of endurance and slight decreased tolerance to sit to stands today with testing. She has not yet returned to the gym but is planning on returning at the start of next month. Due to her current improvmeents with PT thusfar, she will benefit from further skilled PT to increase functional strength and endurance and improve dynamic balance . Plan of Care PT Services Indicated Yes Treatment Frequency and 1x week for 4 visits Duration These treatments will address the objective and functional deficits as defined above. The patient will be advanced safely and appropriately in order for the patient to progress towards his/her prior level of function. Additional exercises will be introduced and as well as a comprehensive home exercise program upon discharge, if needed, ?to ensure carryover of functional gains achieved in the clinic. This treatment plan has been reviewed and agreement upon by the patient.
--- NOTE | 2022-04-22 11:57 | PTOPPROG ---
Assessment and note entered by Karina León DPT Evaluation Information Assessment Status Progress Diagnosis Weakness, dorsalgia, knee pain Onset 02/27/2022 Subjective Information Pt reports that her back hasn't been bothering her much anymore but her knees gives her more trouble . Pt reports that she has the most difficulty with using stairs. She only uses an AD now when she is out and about. Her MD has ordered PT for her knees now and is scheduled for her follow-up in early May. Assessment PT Clinical Summary Pt presents to PT with significant improvements in LE strength but still experiences significant knee pain affecting her function and gait pattern. She still demonstrates an increased risk for falls with activities, but has improved to now walking with a cane as well as no AD at home since starting therapy. She will benefit from additional skilled PT now with a focus on her knees instead of her back to further facilitate symptom relief, improve gait pattern and static/ dynamic balance, decrease fall risk, and be able to return to all household and functional activities. Plan of Care PT Services Indicated Yes Treatment Frequency and 2x week for 8 visits Duration These treatments will address the objective and functional deficits as defined above. The patient will be advanced safely and appropriately in order for the patient to progress towards his/her prior level of function. Additional exercises will be introduced and as well as a comprehensive home exercise program upon discharge, if needed, ?to ensure carryover of functional gains achieved in the clinic. This treatment plan has been reviewed and agreement upon by the patient.
== END 2022-05-27 14:52 | disposition home or self-care (01) ==
LOC: CHSPT 10:28
PROVIDERS: Visit Provider Nurse Practitioner Adult Health
DX: M54.9 Dorsalgia, unspecified (principal)
CPT/HCPCS: 97110; 97162; 97530

== ENCOUNTER 2022-05-20 11:56 | Outpatient (CLI) | payer OTHER, SELFPAY ==
--- NOTE | ~2022-05-20 | XR_ITS ---
EXAMINATION: XR knee LT 2V INDICATION: Left knee pain TECHNIQUE: Two views of the left knee are obtained on three radiographs COMPARISON: None available FINDINGS: There is tricompartmental osteoarthritis, moderate to severe in the medial compartment and moderate in the lateral and patellofemoral compartments. Bone alignment is normal. There is no fractu re. No joint effusion is seen. IMPRESSION: 1. Tricompartmental osteoarthritis, most severe in the medial compartment. Reviewed, dictated and finalized at location B. M STITCHER
--- NOTE | ~2022-05-20 | XR_ITS ---
EXAMINATION: XR knee RT 2V INDICATION: Right knee pain TECHNIQUE: Two views of the right knee are obtained. COMPARISON: 05/18/2015 FINDINGS: There is tricompartmental osteoarthritis of the knee, advanced in the medial and lateral co mpartments, with interval worsening since the comparison examination. Bone alignment is normal. There is no fracture. No joint effusion is identified. IMPRESSION: 1. Tricompartmental osteoarthritis with interval worsening, advanced in the medial and lateral compar tments. Reviewed, dictated and finalized at location B. GER SECONDARY IMPRESSION: 1. Tricompartmental osteoarthritis with interval worsening, advanced in the med ial and lateral compartments.
== END 2022-05-20 11:57 | disposition home or self-care (01) ==
LOC: CHSIMG 11:58
PROVIDERS: Visit Provider Nurse Practitioner Adult Health
DX: M25.562 Pain in left knee (principal); M25.561 Pain in right knee; M17.0 Bilateral primary osteoarthritis of knee
CPT/HCPCS: 73560

== ENCOUNTER 2023-03-20 13:51 | Outpatient (CLI) | payer OTHER, SELFPAY ==
--- NOTE | ~2023-03-20 | XR_ITS ---
EXAMINATION: XR chest 2V DATE: 03/20/2023 14:15 INDICATION: Acute cough TECHNIQUE: Frontal and lateral views of the chest are obtained COMPARISON: 08/01/2021 FINDINGS: The lungs are free of acute opacities. No pleural effusion or pneumothorax. The cardiomedia stinal silhouette is normal. There is moderate thoracic spondylosis. IMPRESSION: 1. No acute cardiopulmonary abnormality. Reviewed, dictated and finalized at location L. NATION ASSEMBLER
== END 2023-03-20 13:52 | disposition home or self-care (01) ==
LOC: CHSIMG 13:53
PROVIDERS: PCP Nurse Practitioner Family; Visit Provider Nurse Practitioner Family
DX: R05.1 Acute cough (principal)
CPT/HCPCS: 71046

== ENCOUNTER 2023-10-07 11:55 | Outpatient (CLI) | payer OTHER, SELFPAY ==
--- NOTE | ~2023-10-07 | MM_ITS ---
EXAMINATION: MM screening melchor BI w karmen HISTORY: Screening TECHNIQUE: Craniocaudal and mediolateral oblique 3-D tomosynthesis images were obtained and synthetic 2-D images were generated. CAD analysis was submitted and interpreted. COMPARISON: Comparison to multiple prior studies sequentially, with oldest reviewed study dated 03/12. BREAST PARENCHYMAL COMPOSITION: Not dense: There are scattered areas of fibroglandular density. FINDINGS: There is no evidence of suspicious mass, calcification, or architectural distortion to sugg est malignancy in either breast. There has been no suspicious interval change. IMPRESSION: 1. No mammographic evidence of malignancy. 2. Recommend routine screening mammography in one year. BI-RADS Category 1: Negative Reviewed, dictated and finalized at location B.
--- NOTE | ~2023-10-07 | CT_ITS ---
CT Scan of the Chest without Contrast: Clinical Indication: Lung cancer screening, nicotine dependence Technique: Contiguous sections were acquired throughout the chest without intravenous contrast. Dose reduction technique was used on this scan by utilizing automated exposure control and iterative recon struction technique. The dose-length product (DLP) was 341.82 mGy-cm. Findings: There is no evidence of any significant mediastinal, hilar or axillary lymphadenopathy. The mediastin al soft tissues appear normal. There is no evidence of pleural or pericardial effusion. The lungs are clear, aside from calcified right basilar granuloma. Images through the upper abdomen reveal no abnormalities. Impression: Lung RADS 2: Benign appearance. 12 month follow-up screening CT advised. Reviewed, dictated and finalized at location . Impression: Lung RADS 2: Benign appearance. 12 month follow-up screening CT advised.
== END 2023-10-07 11:56 | disposition home or self-care (01) ==
LOC: CHSIMG 11:58
PROVIDERS: PCP Nurse Practitioner Family; Visit Provider Nurse Practitioner Family
DX: Z12.31 Encounter for screening mammogram for malignant neoplasm of breast (principal); Z12.2 Encounter for screening for malignant neoplasm of respiratory organs; Z87.891 Personal history of nicotine dependence
CPT/HCPCS: 71271; 77063; 77067

== ENCOUNTER 2024-08-05 12:20 | Outpatient (CLI) | payer OTHER, SELFPAY ==
--- NOTE | ~2024-08-05 | US_ITS ---
US retroperitoneal comp 08/05/2024 12:50 Procedure: Realtime transabdominal ultrasound of the kidneys and bladder. Indication: Abnormal renal function Comparison: No prior studies for comparison. Findings: Renal echotexture is normal bilaterally without hydronephrosis, contour deforming mass or r enal calculus. The right kidney measures 12.3 cm and left kidney measures 10 cm. Bladder within norm al limits. Impression: 1: Unremarkable renal ultrasound. No stones, masses or hydronephrosis. Reviewed, dictated and finalized at location A. Impression: 1: Unremarkable renal ultrasound. No stones, masses or hydronephrosis.
--- OUTSIDE RECORDS SUMMARY | 2024-08-05 13:09 | XMS_ITS | Clinical Summary ---
Author Organization [facility] Address [address] [place] [address] Phone Care Team Providers Care Director Process Improvement Name Role Phone RAIN SCHMIDT MD Primary Care Provider [phone] Reason for Visit and Chief Complaint * PHONE CALL Plan of Treatment No Plan of Treatment Recorded Assessments Includes: Assessments from this encounter No Assessments Recorded Medical Equipment - Implanted Devices Includes: Current Devices No Medical Equipment Recorded Medications Includes: Medications discussed during this encounter and other current Medications Current Medications (continue as prescribed) Pregabalin 150 MG Oral Capsule 10/28/2023 Provider: DUTCH GRIFFIN Diagnosis: 1 CAPSULE TWO TIMES A DAY Last Documented On 4 4:11PM By DWIGHT JUDD ; [facility] HYDROcodone-Acetaminophen 7. 5-325 MG Oral Tablet 10/17/2023 Provider: DUTCH GRIFFIN Diagnosis: Unilateral prima ry osteoarthritis, right knee 1 po q 6-8 hours/max 3 per day Last Documented On 4 4:00PM By DWIGHT JUDD ; [facility] Diclofenac Sodium 50 MG Oral Tablet Delayed Release 09/04/2023 Provider: TRACY MILES-BC Diagnosis: 1 TABLET BY MOUTH EVERY 6-8 HOURS/MAX 3 PER DAY Last Documented On 4 1:32PM By DWIGHT JUDD ; [facility] Labetalol HCl 200 MG Oral Tablet 06/27/2023 Provider : SHLOMO JUDD Diagnosis: Last Documented On 07/16/2023 1:20PM By Nia PEARSON ; [facility] amLODIPine Besylate 10 MG Oral Tablet 04/29/2023 Pro vider: IDA ZAMAN PA-C Diagnosis: Last Documented On 3 11:08AM By Nia PEARSON ; [facility] Symbicort 80-4.5 MCG/ACT Inhalation Aerosol 04/24/2023 Provider: Diagnosis: Last Documented On 3 11:11AM By Nia PEARSON ; [facility] Medications Administered Includes: Administered Medications from this encounter No Administered Medications Recorded Results Includes: Results discussed during this encounter No Results Recorded For Specified Dates History of Present Illness Includes: History of Present Illness from this encounter No History of Present Illness Recorded Social History Description Last Updated Current smoker 07/16/2023 Last Documented On 4 11:35AM ; [facility] [PHQ-2] Patient Health Questionnaire 2 i tem total score: 6 (Scale: 0-6) 10/11/2020 Last Documented On 4 11:35AM ; [facility] Difficulty walking 10/11/2020 Last Documented On 4 11:35AM ; [facility] 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 10/11/2020 Last Documented On 4 11:35AM ; [facility] Cigarette smoking 1 1/2 packs daily 01/10 Last Documented On 4 11:35AM ; [facility] Single 01/27/2018 Last Documented On 4 11:35AM ; [facility] Smoking status : Current everyday smoker 01/27/2018 Last Documented On 4 11:35AM ; [facility] Procedures and Surgical History Surgical History Last Updated History of tonsillectomy 01/27/2018 Last Documented On 4 11:35AM ; [facility] Medical History Includes: Medical History addressed during this encounter Description Last Updated Moderate to severe pain 02/19/2023 Last Documented On 4 11:35AM ; [facility] Pain Clinic 02/19/2023 Last Documented On 4 11:35AM ; [facility] Please list all illnesses/co nditions you have been diagnosed with: High blood pressure 02/19/2023 Last Documented On 4 11:35AM ; [facility] Reviewed and Unchanged 07/20/2019 Last Documented On 4 11:35AM ; [facility] Surgery Adenoidectomy 01/27/2018 Last Documented On 4 11:35AM ; [facility] History of depression 01/27/2018 Last Documented On 4 11:35AM ; [facility] Exposure to dust 01/27/2018 Last Documented On 4 11:35AM ; [facility] Smoke exposure 01/27/2018 Last Documented On 4 11:35AM ; [facility] History of hypertension 01/27/2018 Last Documented On 4 11:35AM ; [facility] Family History Includes: Family History addressed during this encounter No Family History Recorded Review of Systems Includes: Review of Systems from this encounter No Review of Systems Recorded Mental Status Includes: Mental Status from this encounter No Mental Status Recorded Functional Status Includes: Functional Status from this encounter No Functional Status Recorded Physical Exam Includes: Physical Exam from this encounter No Physical Exam Recorded Allergies Includes: Active Allergies No Known Allergies Encounters Encounter Provider Location Date Check-In Time Check-Out Time Diagnosis * PHONE CALL KARLA CUEVAS 09/26/2023 11:36AM 11:59PM Insurance Includes: Active Insurance Policies Plan Name Member ID Group # Subscriber Relationship Effect b[place] Dates 1 - [facility] [id number] QUINN LAMBERT Self Clinical Notes Includes: Clinical Notes from this encounter * Progress note Date Encounter Last Documented by 09/26/2023 * PHONE CALL Last documented on 09/29/2023; 8:03 AM, KARLA CUEVAS; [facility] Chief Complaint Phone Call - Chief Concern: reason for call:pt states she saw her pcp yesterday and was told to stop taking the diclofenac because it's bad for her kidney function, she wanted you to be aware, pt would like your feedback phone: [phone] date/initials:09/26/23, kms. Past Medical/Surgical History Reported: Surgery Adenoidectomy. Pain Clinic and Please list all illnesses/conditions you have been diagnosed with: High blood pressure. Medical: Moderate to severe pain. Environmental Exposure: Smoke exposure and exposure to dust. Diagnoses: Systemic hypertension. Depression Reviewed and Unchanged. Surgical: - Tonsillectomy Current Medication - amLODIPine Besylate 10 MG Oral Tablet One tablet twice a day 30 days, 0 refills - Diclofenac Sodium 50 MG Oral Tablet Delayed Release 1 TABLET BY MOUTH EVERY 6- 8 HOURS/MAX 3 PER DAY, 30 days, 0 refills - HYDROcodone-Acetaminophen 7.5-325 MG Oral Tablet 1 po q 6-8 hours/max 3 per day, 30 days, 0 refills - Labetalol HCl 200 MG Oral Tablet One tablet twice a day 30 days, 0 refills - Pregabalin 150 MG Oral Capsule 1 CAPSULE TWO TIMES A DAY, 30 days, 0 refills - Symbicort 80-4.5 MCG/ACT Inhalation Aerosol as directed 30 days, 0 refills Social History Difficulty walking. Tobacco use: Cigarette smoking 1 1/2 packs daily, smoking packs of cigarettes per day 1 pack, and smoking status: Current everyday smoker. Marital: Single. Functional: [PHQ-2] Patient Health Questionnaire 2 item total score: 6 (Scale: 0-6). Allergies - No Known Allergies Health Reminders - Assess Tobacco Use satisfied 09/26/2023.
--- OUTSIDE RECORDS SUMMARY | 2024-08-05 13:10 | XMS_ITS ---
Author Organization [facility] Care Team Providers Care Brief Writer Name Role Phone Nahum Borja Unavailable Unavailable Brittany Pineda Unavailable Unavailable Allergies and adverse reactions No Known Allergies Care Team Name Role Address Phone Organization Dates Kam Miriam PCP [address] [place], [place], [facility], [facility] (Office): [facility] 10/19/2020 - 01/01/2021 Nahum Borja Attending Physician [id number] [address], [facility] (Office): [facility] 10/19/2020 - 01/01/2021 Immunizations Immunization Status Vaccine Details Vaccine Code CodeSystem Vic e Notes TB 2 Step Mantoux Skin Test completed tuberculin skin test; unspecified formulation lotNumber: [id number] expiry: 05/17/2022 Mfg: moran pas/limited Given 0.1 ml Left Forearm intradermally Step 1 of Multi-step with next step required 98 CVX created date: 10/20/2020 consent date: 10/20/2020 administere d date: 10/20/2020 Mental Status Section Date Assessment Total Score Description 01/01/2021 BIMS 15 cognitively int act CAM 0 No delirium ind icated PHQ-9 03 minimal depress ion 10/27/2020 BIMS 15 cognitively int act CAM 0 No delirium ind icated PHQ-9 12 moderate depres marky Problems Problem # Description Date of onset Resolved Date Code CodeSystem Concern Status 1 ABNORMAL RESULTS OF LIVER FUNCTION STUDIES 10/19/[address] active 2 ACIDOSIS 10/19/[address] active 3 ACUTE KIDNEY FAILURE, UNSPECIFIED 10/19/[address] active 4 ALLERGIC CONTACT DERMATITIS, UNSPECIFIED CAUSE 10/19/[address] active 5 CHRONIC EMBOLISM AND THROMBOSIS OF LEFT POPLITEAL VEIN 10/19/[address] active 6 CHRONIC KIDNEY DISEASE, STAGE 1 10/19/[address] active 7 CHRONIC OBSTRUCTIVE PULMONARY DISEASE, UNSPECIFIED 10/19/[address] active 8 DISEASE OF BILIARY TRACT, UNSPECIFIED 10/19/[address] active 9 DISORDER OF BRAIN, UNSPECIFIED 10/19/[address] active 10 ESSENTIAL (PRIMARY) HYPERTENSION 10/19/[address] active 11 HYPOKALEMIA 10/19/[address] active 12 OTHER CERVICAL DISC DEGENERATION, UNSPECIFIED CERVICAL REGION 10/19/[address] active 13 OTHER MALAISE 10/19/[address] act [place] 14 PAIN IN UNSPECIFIED SHOULDER 10/19/[address] active 15 SPINAL STENOSIS, CERVICAL REGION 10/19/[address] active 16 TOBACCO USE 10/19/2020 Z72.0 ICD-10-CM active 17 VASCULAR DISORDER OF INTESTINE, UNSPECIFIED 10/19/[address] active Reason for Referral No Reasons for Referral Entered Social History Social History Observation Description Start Date End Date Code Code System Current Smoking Status Tobacco smoking consumption unknown 968109947 SNOMED CT Sex Assigned At Female 1965 15067-8 [facility] Vital Signs Code Code System Vitals Name Values and Units Timing Information 9279-1 [facility] Respiratory Rate Value=20.0 Units=/m in 01/01/2021 8462-4 LOINC Blood Pressure-Diastolic Value=70 Un its=mmHg 01/01/2021 8480-6 LOINC Blood Pressure-Systolic Mcqll=572 Un its=mmHg 01/01/2021 8310-5 [facility] Body Temperature Value=98.2 Units= F 01/01/2021 8867-4 [facility] Heart rate Value=74.0 Units=/min 04553-6 [facility] Pain Level Value=0.0 01/01/2021 14683-4 [facility] O2 % BldC Oximetry Value=95.0 Units= % 12/26/2020 62053-9 [facility] Weight Uieve=905.0 Units=Lbs 06/2020 8302-2 [facility] Height Value=70.5 Units=Inches 10/19/2020
--- OUTSIDE RECORDS SUMMARY | 2024-08-05 13:10 | XMS_ITS | Clinical Summary ---
Author Organization [facility] Address [address] [place] [address] Phone Care Team Providers Care Wood Router Hand Name Role Phone RAIN SCHMIDT MD Primary Care Provider [phone] Reason for Visit and Chief Complaint The Chief Complaint is: 2 MO FU Plan of Treatment Instructions to patient Intervention and counseling on cessation of tobacco use : Patient recieved smoking cessation handout Last Documented On 1:05PM ; [facility] Education and Decision Aids were provided during visit for: Pill Count: eight HYDROCODON E Last Documented On 1:16PM ; [facility] Assessments Includes: Assessments from this encounter Findings - Osteoarthritis of right knee [M17.11 - Unilateral primary osteoarthritis, right knee] - Last Documented On 09/16/2023 1:33PM ; [facility] - Osteoarthritis of left knee [M17.12 - Unilateral primary osteoarthritis, left knee] - Last Documented On 09/16/2023 1:33PM ; [facility] - Osteoarthritis of both knees [M17.0 - Bilateral primary osteoarthritis of knee] - Last Documented On 09/16/2023 1:33PM ; [facility] - Myalgia [M79.18 - Myalgia, other site] - Last Documented On 09/16/2023 1:33PM ; [facility] - Chronic pain syndrome [G89.4 - Chronic pain syndrome] - Last Documented On 09/16/2023 1:33PM ; [facility] - penitentiary use of opiate analgesic [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] - Last Documented On 09/16/2023 1:33PM ; [facility] Instructions Includes: Instructions from this encounter Instructions to patient Intervention and counseling on cessation of tobacco use : Patient recieved smoking cessation handout Last Documented On 1:05PM ; [facility] Education and Decision Aids were provided during visit for: Pill Count: eight HYDROCODON E Last Documented On 4 1:16PM ; [facility] Medical Equipment - Implanted Devices Includes: Current Devices No Medical Equipment Recorded Medications Includes: Medications discussed during this encounter and other current Medications Discontinued / Stopped on this date KARLA CUEVAS on 08/18/2023 HYDROcodone-Acetaminophen 7. 5-325 MG Oral Tablet Provider: KARLA CUEVAS Diagnosis: Unilateral prima ry osteoarthritis, right knee Last Documented On 4 1:32PM By KARLA CUEVAS ; [facility] HYDROcodone-Acetaminophen 5- 325 MG Oral Tablet Provider: KARLA CUEVAS Diagnosis: Bilateral primar y osteoarthritis of knee Last Documented On 09/16/2023 1:15PM By Nia PEARSON ; [facility] Pregabalin 150 MG Oral Capsule Provider: KARLA CUEVAS Diagnosis: Other spondylosi s with radiculopathy, cervical region Last Documented On 09/16/2023 1:15PM By Nia PEARSON ; [facility] New / Renewed during this visit KARLA CUEVAS on 09/16/2023 HYDROcodone-Acetaminophen 7. 5-325 MG Oral Tablet Provider: KARLA CUEVAS 30 day supply: 90 tablet, 0 refills Diagnosis: Unilateral primary osteoarthritis, right knee 1 po q 6-8 hours/max 3 per day Pharmacy: [facility] [place] [place], [id number] - Last Documented On 4 3:57PM By DWIGHT JUDD ; [facility] Current Medications (continue as prescribed) Pregabalin 150 MG Oral Capsule 10/28/2023 Provider: DUTCH GRIFFIN Diagnosis: 1 CAPSULE TWO TIMES A DAY Last Documented On 4 4:11PM By DWIGHT JUDD ; [facility] HYDROcodone-Acetaminophen 7. 5-325 MG Oral Tablet 10/17/2023 Provider: DWIGHT KIRK APRN-Catie, [facility]- Diagnosis: Unilateral prima ry osteoarthritis, right knee 1 po q 6-8 hours/max 3 per day Last Documented On 4 4:00PM By DWIGHT KIRK [facility] ; [facility] Diclofenac Sodium 50 MG Oral Tablet Delayed Release 09/04/2023 Provider: DWIGHT KIRK AP RN-FPA, [facility] Diagnosis: 1 TABLET BY MOUTH EVERY 6-8 HOURS/MAX 3 PER DAY Last Documented On 4 1:32PM By DWIGHT KIRK [facility] ; [facility] Labetalol HCl 200 MG Oral Tablet 06/27/2023 Provider : SHLOMO BRAN [facility] Diagnosis: Last Documented On 07/16/2023 1:20PM By Nia PEARSON ; [facility] amLODIPine Besylate 10 MG Oral Tablet 04/29/2023 Pro vider: IDA ZAMAN PA-C Diagnosis: Last Documented On 3 11:08AM By Nia PEARSON ; [facility] Symbicort 80-4.5 MCG/ACT Inhalation Aerosol 04/24/2023 Provider: Diagnosis: Last Documented On 3 11:11AM By Nia PEARSON ; [facility] Medications Administered Includes: Administered Medications from this encounter No Administered Medications Recorded Vital Signs Includes: Vital Signs from this encounter Vital Name 09/16/2023 01:12P Blood Pressure Sitting R 120/60 Pulse Rate-Sitting (bpm) 79 Temp-Temporal 97 Height (in) 70 Weight (lb) 350 Body Mass Index 50.2 Body Surface Area 2.6 Pain Level 5 Oxygen Saturation (%) 93 Last Documented: On 09/16/2023 1:14PM ; [facility] Results Includes: Results discussed during this encounter No Results Recorded For Specified Dates History of Present Illness Includes: History of Present Illness from this encounter HPI - Allergy list reviewed - Problem list reviewed - Medication reconciliation performed - Medication list reviewed - Prescription Drug Monitoring Program website checked. 08/18/23 - How much of the medication are you taking a day? 2-3 TIMES A DAY PRN - Last dose of medication? 8 AM - Pain is continuous - Primary pain location Shoulder - Primary pain duration 45min - Secondary pain duration 45min - Secondary pain location Back - Pain is throbbing - Pain is sharp - Pain is like pins/needles - Relieved by repositioning - Pain aggravated getting in/out of car - Pain aggravated going down stairs - Pain aggravated going up stairs - Pain aggravated sitting - Pain aggravated standing - Pain aggravated by walking - Pain aggravated lifting - Last drug screen appropriate 07/17/23 Discussion: Patient presents in follow up on medication. She has bilateral knee and low back pain. She continues going to the gym and working on weight loss. She has lost 10lbs since last visit. Hydrocodone is used 2-3 times per day with benefit. We increased from 5/325mg to 7.5/325mg hydrocodone last visit. She feels this has helped. Overall, medication helps and allows her to maintain function. Prior visit 07/16/23: Patient presents in follow up for medication management. She suffers from chronic knee and back pain. She feels the back pain is better, but knees and ankles are hurting. She has been going to the gym 3 days per week and using treadmill and machines. We discussed using a recumbent bike or elliptical. She may be safer with use of recumbent bike. Hydrocodone is used 2-3 times per day. She will need a refill in the next week. Medication helps, but not as much as before. She questions increasing dosage to 7.5/325mg. This is not unreasonably, though I increased to tid dosing in April. I do want her to modify some exercises to keep from adding pain. Past note: Patient presents in follow up for medication management. She suffers from bilateral knee pain related to osteoarthritis. Euflexxa injections done 3 months ago with some relief and improved mobility. She has noted some increased pain with weather changes. Hydrocodone 5/325mg is used bid with modest benefit. She feels the dosage is not helping as much as of late. She doesn't feel it is lasting, taken twice daily. She is using tylenol twice daily. She would like to be more active, but pain does limit this presently. Past note: Patient presents in follow up after a series of Euflexxa injections to bilateral knees. She has been able to go to the gym more regularly with less pain. She still requires hydrocodone for pain relief, but pain isn't as severe. She is trying hard to lose weight and knows this will help with pain. She also complains of bilateral hand pain related to arthritis. We discussed using putty or stress ball to keep hands moving. She has been gripping stronger to exercises and thinks this may contribute to pain. Hydrocodone is helping and allows her to maintain function levels and increase activity. Past note: Patient presents in follow up for knee pain. She reports ongoing knee pain, currently requiring opioid medication for management. She failed to respond to steroid injections and two courses of physical therapy in last 4-6 months. She does home exercises and goes to the gym now 3 days per week. We discussed viscosupplementation injections for symptoms relief, and less reliance of opioid medication. Tylenol is used as needed. NSAIDS avoided due to hypertension, cardiac risk. Past note: Patient presents in follow up to bilateral steroid knee injections approximately 3 weeks ago. She reports 50% improvement in overall pain. Patient describes more improvement and mobility and range of motion. She is still having considerable pain in the morning and before bed. She continues to use hydrocodone at that time during the day. We discussed adding Tylenol to her regimen for additional relief. She would like to join a gym and try to exercise, trying to lose weight. She is aware this is contributing to her knee pain. May consider Visco supplementation injections for additional relief. We will follow-up in one month. Past note: Patient presents in follow up after completing a second course of physical therapy on the knees. She felt it helped some with mobility, but did not help with pain. Knee pain is severe and is limiting her ability to ambulate and do things at home and out of the house. She is ambulating with a walker now. I recommend steroid knee injections under ultrasound guidance. If this is not effective, would recommend viscosupplementation. She continues diclofenac twice daily. She feels it is helpful, particularly with swelling. She is questioning a refill of hydrocodone. She has taken this in the past. Neck and low back pain are doing well at this time. Past note: Patient presents in follow up for low back and neck pain. She has nearly finished therapy for low back complaints. She does feel it has helped her mobility, not as much with pain control. She is now ambulating with a cane now with therapy. Recommend she continue therapy for additional relief. Neck pain is doing fairly well at this time. Her biggest complaint is bilateral knee pain. This has worsened as she has become more active. Pain worsens with weight bearing and first thing in am. Stairs are difficult. She is having a difficult time exercising to get weight off. Past note: Patient presents to clinic in 3 months follow-up with complaints of increased axial low back pain. This started approximately 1-2 months ago and she relates this to and activity. She experienced a fall in 2019 and has been much less active sense, wheelchair-bound for a period of time. Pain worsens with prolonged standing or walking and is likely related to deconditioning. Will obtain x-rays and start physical therapy. She reports cervical complaints are doing fairly well at this time. However, she has been off pregabalin for approximately 1-2 weeks. Encouraged her to call for refills and not abruptly stop this medication. She continues diclofenac BID. Past note: Patient returns to clinic with complaints of worsening of neck pain with into the left upper extremity and weakness in the left hand. Symptoms have been progressed the last few months. She also has increased right knee pain. She had a fall in 2019 that caused some increased pain overall as well as memory issues. She was seen in 2018 for cervical symptoms and became fearful of injection and she had seen a surgeon. They had recommended surgery, but she had put this off and then had the fall. She was on lyrica at one time, but she has been lost to follow up. Therapy on the neck and knee was done in 2020 without much benefit. Steroid injection on the knee was done last year without lasting benefit. I recommend she follow up with a surgeon for the knee at this time, referral placed. We will get updated imaging on the c spine. We will also restart lyrica and an anti-inflammatory. Imaging: All relevant imaging available was personally reviewed with the patient today with the following tests and results noted: MRI C spine 03/26/19: Moderate cervical spondylosis with multilevel stenosis Xray C spine 03/09/19: Mild to moderate cervical spondylosis X-ray cervical spine 02/26/22: mild to moderate degenerative arthropathy cervical spine with facet arthritis Left knee pain 05/20/22: tricompartmental arthritis, severe in medial aspect Rt. knee pain 05/20/22: tricompartmental arthritis, advanced in medial and lateral aspect Social History Description Last Updated No consumption of alcohol 09/16/2023 Last Documented On 4 1:33PM ; [facility] Not using drugs 09/16/2023 Last Documented On 4 1:33PM ; [facility] Current smoker 07/16/2023 Last Documented On 4 1:04PM ; [facility] [PHQ-2] Patient Health Questionnaire 2 i tem total score: 6 (Scale: 0-6) 10/11/2020 Last Documented On 4 1:04PM ; [facility] Difficulty walking 10/11/2020 Last Documented On 4 1:04PM ; [facility] 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 10/11/2020 Last Documented On 4 1:04PM ; [facility] Cigarette smoking 1 1/2 packs daily Last Documented On 4 1:04PM ; [facility] Single 01/27/2018 Last Documented On 4 1:04PM ; [facility] Smoking status : Current everyday smoker 01/27/2018 Last Documented On 4 1:04PM ; [facility] Procedures and Surgical History Includes: Procedures from this encounter Procedures Code Diagnosis Performing Provider Service Location Service Date CLINIC VISIT T1015 Bilateral primar y osteoarthritis of knee, penitentiary (current) use of opiate analgesic, Chronic pain syndrome KARLA MARIE [facility] 09/16/2023 Last Documented On 4 10:01AM ; [facility] intervention and counseling on cessation of tobacco use : Patient recieved smoking cessation handout 4000F Last Documented On 4 1:05PM ; [facility] use of tobacco assessment performed 1000F Last Documented On 4 1:05PM ; [facility] patient screened for future fall risk: documentation of any fall with injury in past year 1100F Last Documented On 4 1:05PM ; [facility] standardized depression screening: negative for symptoms 3351F Last Documented On 4 1:05PM ; [facility] review of medications documented 1160F Last Documented On 4 1:05PM ; [facility] screening for adult depression: impressi on and score one Last Documented On 4 1:05PM ; [facility] SOAPP-R: total score 4 Last Documented On 4 1:05PM ; [facility] Surgical History Last Updated No Pacemaker 09/16/2023 Last Documented On 4 1:33PM ; [facility] History of tonsillectomy 01/27/2018 Last Documented On 4 1:04PM ; [facility] Medical History Includes: Medical History addressed during this encounter Description Last Updated Denies a fear of falling. 09/16/2023 Last Documented On 4 1:33PM ; [facility] Has had no fall in the last 12 months. 0 09/16/2023 Last Documented On 4 1:33PM ; [facility] Moderate to severe pain 02/19/2023 Last Documented On 4 1:04PM ; [facility] Pain Clinic 02/19/2023 Last Documented On 4 1:04PM ; [facility] Please list all illnesses/co nditions you have been diagnosed with: High blood pressure 02/19/2023 Last Documented On 4 1:04PM ; [facility] Reviewed and Unchanged 07/20/2019 Last Documented On 4 1:04PM ; [facility] Surgery Adenoidectomy 01/27/2018 Last Documented On 4 1:04PM ; [facility] History of depression 01/27/2018 Last Documented On 4 1:04PM ; [facility] Exposure to dust 01/27/2018 Last Documented On 4 1:04PM ; [facility] Smoke exposure 01/27/2018 Last Documented On 4 1:04PM ; [facility] History of hypertension 01/27/2018 Last Documented On 4 1:04PM ; [facility] Family History Includes: Family History addressed during this encounter No Family History Recorded Review of Systems Includes: Review of Systems from this encounter Systemic: No systemic symptoms other than noted. Fatigue. Head: No head symptoms other then noted. Neck: Neck pain. Cardiovascular: No chest pain or discomfort. Pulmonary: No dyspnea. Gastrointestinal: No gastrointestinal symptoms other than noted. Endocrine: No endocrine symptoms other than noted. Muscle weakness. Hematologic: No easy bleeding and no tendency for easy bruising. Musculoskeletal: Muscle aches, pain localized to one or more joints, and joint stiffness localized to one or more joints. Neurological: Dizziness. No fainting passing out with needles or medical procedures. Falls. Psychological: No psychological symptoms other than noted. Depression. Skin: No skin symptoms other than noted. Mental Status Includes: Mental Status from this encounter No Mental Status Recorded Functional Status Includes: Functional Status from this encounter No Functional Status Recorded Physical Exam Includes: Physical Exam from this encounter Allergies Includes: Active Allergies No Known Allergies Encounters Encounter Provider Location Date Check-In Time Check-Out Time Diagnosis PAIN MANAGEMENT FOLLOW UP KARLA CUEVAS [facility] 09/16/19 24 1:04PM 1:35PM Chronic Pain Syndrome,Oste oarthritis Knees Both,Osteoart hritis Knee Right,Osteoar thritis Knee Left,Fpc Use of Opiate Analgesic,Mellisa lgia , Other Site (M79.18) Insurance Includes: Active Insurance Policies Plan Name Member ID Group # Subscriber Relationship Effect [place] Dates 1 - [facility] [id number] QUINN LAMBERT Self Clinical Notes Includes: Clinical Notes from this encounter * Progress note Date Encounter Last Documented by 09/16/2023 PAIN MANAGEMENT FOLLOW UP Last d ocumented on 09/16/2023; 1:33 PM, KARLA CUEVAS; [facility] Chief Complaint The Chief Complaint is: 2 MO FU. History of Present Illness - Allergy list reviewed - Problem list reviewed - Medication reconciliation performed - Medication list reviewed - Prescription Drug Monitoring Program website checked. 08/18/23 - How much of the medication are you taking a day? 2-3 TIMES A DAY PRN - Last dose of medication? 8 AM - Pain is continuous - Primary pain location Shoulder - Primary pain duration 45min - Secondary pain duration 45min - Secondary pain location Back - Pain is throbbing - Pain is sharp - Pain is like pins/needles - Relieved by repositioning - Pain aggravated getting in/out of car - Pain aggravated going down stairs - Pain aggravated going up stairs - Pain aggravated sitting - Pain aggravated standing - Pain aggravated by walking - Pain aggravated lifting - Last drug screen appropriate 07/17/23 Discussion: Patient presents in follow up on medication. She has bilateral knee and low back pain. She continues going to the gym and working on weight loss. She has lost 10lbs since last visit. Hydrocodone is used 2-3 times per day with benefit. We increased from 5/325mg to 7.5/325mg hydrocodone last visit. She feels this has helped. Overall, medication helps and allows her to maintain function. Prior visit 07/16/23: Patient presents in follow up for medication management. She suffers from chronic knee and back pain. She feels the back pain is better, but knees and ankles are hurting. She has been going to the gym 3 days per week and using treadmill and machines. We discussed using a recumbent bike or elliptical. She may be safer with use of recumbent bike. Hydrocodone is used 2-3 times per day. She will need a refill in the next week. Medication helps, but not as much as before. She questions increasing dosage to 7.5/325mg. This is not unreasonably, though I increased to tid dosing in April. I do want her to modify some exercises to keep from adding pain. Past note: Patient presents in follow up for medication management. She suffers from bilateral knee pain related to osteoarthritis. Euflexxa injections done 3 months ago with some relief and improved mobility. She has noted some increased pain with weather changes. Hydrocodone 5/325mg is used bid with modest benefit. She feels the dosage is not helping as much as of late. She doesn't feel it is lasting, taken twice daily. She is using tylenol twice daily. She would like to be more active, but pain does limit this presently. Past note: Patient presents in follow up after a series of Euflexxa injections to bilateral knees. She has been able to go to the gym more regularly with less pain. She still requires hydrocodone for pain relief, but pain isn't as severe. She is trying hard to lose weight and knows this will help with pain. She also complains of bilateral hand pain related to arthritis. We discussed using putty or stress ball to keep hands moving. She has been gripping stronger to exercises and thinks this may contribute to pain. Hydrocodone is helping and allows her to maintain function levels and increase activity. Past note: Patient presents in follow up for knee pain. She reports ongoing knee pain, currently requiring opioid medication for management. She failed to respond to steroid injections and two courses of physical therapy in last 4-6 months. She does home exercises and goes to the gym now 3 days per week. We discussed viscosupplementation injections for symptoms relief, and less reliance of opioid medication. Tylenol is used as needed. NSAIDS avoided due to hypertension, cardiac risk. Past note: Patient presents in follow up to bilateral steroid knee injections approximately 3 weeks ago. She reports 50% improvement in overall pain. Patient describes more improvement and mobility and range of motion. She is still having considerable pain in the morning and before bed. She continues to use hydrocodone at that time during the day. We discussed adding Tylenol to her regimen for additional relief. She would like to join a gym and try to exercise, trying to lose weight. She is aware this is contributing to her knee pain. May consider Visco supplementation injections for additional relief. We will follow-up in one month. Past note: Patient presents in follow up after completing a second course of physical therapy on the knees. She felt it helped some with mobility, but did not help with pain. Knee pain is severe and is limiting her ability to ambulate and do things at home and out of the house. She is ambulating with a walker now. I recommend steroid knee injections under ultrasound guidance. If this is not effective, would recommend viscosupplementation. She continues diclofenac twice daily. She feels it is helpful, particularly with swelling. She is questioning a refill of hydrocodone. She has taken this in the past. Neck and low back pain are doing well at this time. Past note: Patient presents in follow up for low back and neck pain. She has nearly finished therapy for low back complaints. She does feel it has helped her mobility, not as much with pain control. She is now ambulating with a cane now with therapy. Recommend she continue therapy for additional relief. Neck pain is doing fairly well at this time. Her biggest complaint is bilateral knee pain. This has worsened as she has become more active. Pain worsens with weight bearing and first thing in am. Stairs are difficult. She is having a difficult time exercising to get weight off. Past note: Patient presents to clinic in 3 months follow-up with complaints of increased axial low back pain. This started approximately 1-2 months ago and she relates this to and activity. She experienced a fall in 2019 and has been much less active sense, wheelchair-bound for a period of time. Pain worsens with prolonged standing or walking and is likely related to deconditioning. Will obtain x-rays and start physical therapy. She reports cervical complaints are doing fairly well at this time. However, she has been off pregabalin for approximately 1-2 weeks. Encouraged her to call for refills and not abruptly stop this medication. She continues diclofenac BID. Past note: Patient returns to clinic with complaints of worsening of neck pain with into the left upper extremity and weakness in the left hand. Symptoms have been progressed the last few months. She also has increased right knee pain. She had a fall in 2019 that caused some increased pain overall as well as memory issues. She was seen in 2018 for cervical symptoms and became fearful of injection and she had seen a surgeon. They had recommended surgery, but she had put this off and then had the fall. She was on lyrica at one time, but she has been lost to follow up. Therapy on the neck and knee was done in 2020 without much benefit. Steroid injection on the knee was done last year without lasting benefit. I recommend she follow up with a surgeon for the knee at this time, referral placed. We will get updated imaging on the c spine. We will also restart lyrica and an anti-inflammatory. Imaging: All relevant imaging available was personally reviewed with the patient today with the following tests and results noted: MRI C spine 03/26/19: Moderate cervical spondylosis with multilevel stenosis Xray C spine 03/09/19: Mild to moderate cervical spondylosis X-ray cervical spine 02/26/22: mild to moderate degenerative arthropathy cervical spine with facet arthritis Left knee pain 05/20/22: tricompartmental arthritis, severe in medial aspect Rt. knee pain 05/20/22: tricompartmental arthritis, advanced in medial and lateral aspect Test Conclusions PHQ-9 Score:1 Date:07/16/23 BPI Score: Date: MiDAS Score: Date: SOAPP-R Score: 4 LOW Date:07/16/23 JOSTIN Score:20=40% Date:07/16/23 Past Medical/Surgical History Reported: Surgery Adenoidectomy. Pain Clinic and Please list all illnesses/conditions you have been diagnosed with: High blood pressure. Medical: Moderate to severe pain. Surgical / Procedural: No Pacemaker. Environmental Exposure: Smoke exposure and exposure to dust. Physical Trauma: Has had no fall in the last 12 months. and Denies a fear of falling. Diagnoses: Systemic hypertension. Depression Reviewed and Unchanged. Surgical: - Tonsillectomy Current Medication - amLODIPine Besylate 10 MG Oral Tablet One tablet twice a day 30 days, 0 refills - Diclofenac Sodium 50 MG Oral Tablet Delayed Release 1 TABLET BY MOUTH EVERY 6- 8 HOURS/MAX 3 PER DAY, 30 days, 0 refills - Labetalol HCl [...] pack, and smoking status: Current everyday smoker. Alcohol: No consumption of alcohol. Drug Use: Not using drugs. Marital: Single. Functional: [PHQ-2] Patient Health Questionnaire 2 item total score: 6 (Scale: 0-6). Allergies - No Known Allergies Review Of Systems Systemic: No systemic symptoms other than noted. Fatigue. Head: No head symptoms other then noted. Neck: Neck pain. Cardiovascular: No chest pain or discomfort. Pulmonary: No dyspnea. Gastrointestinal: No gastrointestinal symptoms other than noted. Endocrine: No endocrine symptoms other than noted. Muscle weakness. Hematologic: No easy bleeding and no tendency for easy bruising. Musculoskeletal: Muscle aches, pain localized to one or more joints, and joint stiffness localized to one or more joints. Neurological: Dizziness. No fainting passing out with needles or medical procedures. Falls. Psychological: No psychological symptoms other than noted. Depression. Skin: No skin symptoms other than noted. Physical Findings - Vitals taken 09/16/2023 01:12 pm BP-Sitting R 120/60 mmHg Pulse Rate-Sitting 79 bpm Temp-Temporal 97 F Height 70 in Weight 350 lbs Body Mass Index 50.2 kg/m2 Body Surface Area 2.6 m2 Pain Level 5 Pain Level Note BL KNEES Oxygen Saturation 93 % Musculoskeletal System: General/bilateral: Musculoskeletal Scales: Value Lumbar oswestry score 40 Psychiatric: Psychiatric: Value PHQ9 score: 1 Constitutional: Well developed, obese. Well nourished. In no acute distress. HEENT: NC/AT. Anicteric. Clear Conjunctiva. PERRLA. MM's pink/moist. No lesions of nasal mucosa. CVS: . Peripheral pulses palpable in all extremities. Spine/MSK: Tenderness bilateral medial knee joint line, mild Gait: Antalgic. Ambulates with walker. Neuro: Awake. Alert. Oriented x3. Psych: No apparent distress. Mood normal. Affect normal. No pain behaviors. Skin: No rash. Normal pigmentation. Normal temperature Tests Educational Testing: Questionnaires PHQ-9: Value SOAPP-R: total score 4 Assessment - Osteoarthritis of right knee [M17.11 - Unilateral primary osteoarthritis, right knee] - Osteoarthritis of left knee [M17.12 - Unilateral primary osteoarthritis, left knee] - Osteoarthritis of both knees [M17.0 - Bilateral primary osteoarthritis of knee] - Myalgia [M79.18 - Myalgia, other site] - Chronic pain syndrome [G89.4 - Chronic pain syndrome] - penitentiary use of opiate analgesic [Z79.891 - penitentiary (current) use of opiate analgesic] Therapy - Intervention and counseling on cessation of tobacco use: Patient recieved smoking cessation handout. Counseling/Education - Pill Count: eight HYDROCODONE Discussed Will continue chronic opioid therapy. Reports improvement in pain. Patient is able to maintain function levels with use of medication management. Reports no adverse side effects. Patient advised of risks and benefits of medication- including tolerance, dependence, addiction, constipation, itching, allergic reactions, sedation, impairment, respiratory depression or failure, development of hyperalgesia Patient was instructed on taking medication correctly; storing medication securely; disposing of medication properly and to never share medication. Increase hydrocodone to 7.5/325mg q 6-8 hours prn/max 3 per day. F/U 2 months Plan StartCited - Unilateral primary osteoarthritis, right knee HYDROcodone-Acetaminophen 7.5-325 MG tablet 1 po q 6-8 hours/max 3 per day, 30 days, 0 refills EndCited Practice Management Use of tobacco assessment performed and patient screened for future fall risk documentation of any fall with injury in past year Review of medications documented; Standardized depression screening: negative for symptoms and for adult impression and score one. Health Reminders - Assess BMI satisfied 09/16/2023. - Assess Tobacco Use satisfied 09/16/2023. - Depression Screening satisfied 09/16/2023. - Follow up plan for Depression Screening satisfied 09/16/2023. - Smoking & Tobacco Cessation Intervention and Counseling satisfied 09/16/2023.
--- OUTSIDE RECORDS SUMMARY | 2024-08-05 13:10 | XMS_ITS | Clinical Summary ---
Author Organization [facility] Address [facility] [place] [address] Care Team Providers Care Cash Person Name Role Phone Greta Martin [facility] Primary Care Provider [phone] Allergies No known active allergies Medications Umeclidinium Adolphus (INCRUSE ELLIPTA) 62.5 MCG/INH AEROSOL POWDER, BREATH ACTIVATED Active trazodone 50 MG tabletIndication s:alternates with ambien; trazodone x 2 nights, ambien on 3rd night Take 50 mg by mouth. Indications: alternates with ambien; trazodone x 2 nights, ambien on 3rd night Active zolpidem 10 MG tabletIndication s:takes every 3rd night; alternately with trazodone Take 10 mg by mouth. Indications: takes every 3rd night; alternately with trazodone Active famotidine 20 MG tablet Take 20 mg by mouth 2 (two) times daily. Active Active Problems Problem Noted Date Diagnosed Date CKD (chronic kidney disease), stage I 10/19/2020 UTI (urinary tract infection) 10/17/2020 KING (acute kidney injury) 10/17/2020 Physical deconditioning 10/17/2020 Acidosis 11/19/2019 Acute kidney injury (KING) with acute tubular nec rosis (ATN) 11/19/2019 Lactic acidosis 11/19/2019 Acute encephalopathy 11/19/2019 Large bowel ischemia ([facility]) 11/19/2019 Severe sepsis ([facility]) 11/18/2019 Left foot infection 10/13/2019 Elevated liver enzymes 09/12/2019 Contact dermatitis 09/09/2019 Acute deep vein thrombosis o f left popliteal vein ([facility]) 09/09/2019 DDD (degenerative disc disease), cervical 2019 Spinal stenosis of cervical region 05/31/2019 Shoulder pain 09/15/2014 Hypertension COPD (chronic obstructive pu lmonary disease) ([facility]) Smoker unmotivated to quit Sludge in gallbladder Resolved Problems Problem Noted Date Diagnosed Date Resolved Date Hypokalemia 10/16/2020 10/19/2020 Dehydration 09/09/2019 09/10/2019 Acute hyponatremia 09/09/2019 0 Under care of bridge painter helper 01/21/2020 Pancreatitis ([facility]) 09/09 Social History Tobacco Use Types Packs/Day Years Used Date Smoking Tobacco: Every Day Cigarettes Smokeless Tobacco: Never Alcohol Use Standard Drinks/Week Comments Not Currently 0 (1 standard drink = 0.6 oz pur e alcohol) states quit 02/2020 Humiliation, Afraid, Rape, and Kick questionnair e Answer Date Recorded Fear of Current or Ex-Partner Patient declined 0 09/09/2019 Emotionally Abused Patient declined 09/09/2019 Physically Abused Patient declined 09/09/2019 Sexually Abused Patient declined 09/09/2019 Social Connection and Isolat ion Panel [NHANES] Answer Date Recorded Frequency of Communication w ith Friends and Family More than three times a week 09/09/2019 Frequency of Social Gatherin gs with Friends and Family More than three times a week 09/09/2019 Attends Temple Services Never 09/08 Active Member of Clubs or Organizations No 09/09/2019 Attends Club or Organization Meetings Never 09/09/2019 Marital Status Not on file 09/09/2019 Overall Financial Resource Strain (CARDIA) Answe r Date Recorded Difficulty of Paying Living Expenses Not very [address] [address] 09/09/2019 [facility] [place] [facility] - Occupational Stress Questionnaire Answer Date Recorded Feeling of Stress Rather much 09/09/2019 Exercise Vital Sign Answer Date Recorde d Days of Exercise per Week 0 days 2019 Minutes of Exercise per Session 0 min 09/09/2019 PRAPARE - Transportation Answer Date Re corded Lack of Transportation (Medical) No 09/09/2019 Lack of Transportation (Non-Medical) No 09/09/2019 Comments No Sex and Gender Information Value Date Recorded Sex Assigned at Not on file Legal Sex Female 8:52 PM CDT Gender Identity Not on file Sexual Orientation Straight 09/09/2019 6: 47 AM CDT Last Filed Vital Signs Vital Sign Reading Time Taken Comments Blood Pressure 145/89 10/19/2020 10:02 AM CDT Pulse 70 10/19/2020 10:02 AM CDT Temperature 35.7 C (96.3 F) 10/19/2020 4:00 AM CDT Respiratory Rate 18 10/19/2020 10:0 2 AM CDT Oxygen Saturation 97% 10/19/2020 4:00 AM CDT Inhaled Oxygen Concentration - - Weight 138.2 kg (304 lb 9.6 oz) 10/16/2020 7:30 PM CDT Height 177.8 cm (5' 10 ) 10/16/2020 7:30 PM CDT Body Mass Index 43.71 10/16/2020 7:30 PM CDT Plan of Treatment Health Maintenance Due Date Last Done Comments Cervical Cancer Screening Pa p Smear (Age 30 to 64) Every 3 Years 1965 Colorectal Cancer Screening Colonoscopy (10 Years) 1965 Annual Physical 1968 Pneumococcal Vaccine: Pediat rics (0 to 5 Years) and At-Risk Patients (6 to 64 Years) (1 of 2 - PCV) 12/06/1971 DTaP, Tdap and Td Vaccines ( 1 - Tdap) 1984 Hepatitis B Vaccines (1 of 3 - 19+ 3-dose series) 1984 Cervical Cancer Screening Pa p with HPV Testing (Age 30 to 64) Every 5 Years 12/06/1995 Cervical Cancer Screening with HPV 12/06/1995 Mammogram Screening 2005 Zoster Vaccines (1 of 2) 12/06/2015 COVID-19 Vaccine (2 - 2023-2 5 season) 2024 10/27/2020 Influenza Adult (#1) 2024 Hepatitis C Completed 09/11/2019 Meningococcal B Vaccine Aged Out No l onger eligible based on patient's age to complete this topic Meningococcal Vaccine Aged Out No ryann bear eligible based on patient's age to complete this topic RSV Immunizations Under 20 Months Aged Out No longer eligible based on patient's age to complete this topic Procedures Procedure Name Priority Date/Time Associated Diagnosis Comments HEPATITIS PANEL,ACUTE Routine 09/11/2019 8:34 AM CDT from Last 3 Months or Most Recently Relevant to Health Maintenance Results * HEPATITIS PANEL,ACUTE (09/11/2019 8:34 AM CDT) HEPATITIS B SURFACE AG NON-REACT STAN NON-REACT STAN 09/13/2019 9:09 PM CDT [facility] Comment:HBsAg NOT DETECTED. HEP B CORE IGM NON-REACT STAN NON-REACT STAN 09/13/2019 9:09 PM CDT [facility] Comment: IgM ANTI HBc NOT DETECTED. DOES NOT EXCLUDE THE POSSIBILITY OF EXPOSURE TO OR INFECTION WITH HBV. NO RETEST REQUIRED. HIGH DOSES OF BIOTIN MAY INTERFERE WITH THIS TEST RESULT. CORRELATION TO CLINICAL HISTORY AND PRESENTATION RECOMMENDED. HAV IGM NON-REACT STAN NON-REACT STAN 09/13/2019 9:09 PM CDT [facility] Comment: IgM ANTI HAV NOT DETECTED. DOES NOT EXCLUDE THE POSSIBILITY OF EXPOSURE TO OR INFECTION WITH HAV. LEVELS OF IgM ANTI HAV MAY BE BELOW THE CUTOFF IN EARLY INFECTION. HEPATITIS C AB NON-REACT STAN NON-REACT STAN 09/13/2019 9:09 PM CDT [facility] Comment: ANTIBODIES TO HCV NOT DETECTED. DOES NOT EXCLUDE THE POSSIBILITY OF EXPOSURE TO HCV. 09/11/2019 8:34 AM CDT Jm Luther MD LABORATORY Final Result [facility] [address] [place] [address], [id number] from Last 3 Months or Most Recently Relevant to Health Maintenance [place] [address] [address] [address] [employer] Advance Directives * Full Code (Latest Code Status on File) Date Activated Date Inactivated Comments 10/17/2020 9:54 AM 10/19/2020 1:34 PM * Full Code Date Activated Date Inactivated Comments 11/18/2019 9:04 PM 12/06/2019 7:08 PM * Full Code Date Activated Date Inactivated Comments 10/13/2019 7:12 PM 10/20/2019 4:58 PM * Full Code Date Activated Date Inactivated Comments 09/09/2019 7:35 AM 09/13/2019 4:40 PM Care Teams Cash Person Relationship Specialty Start Date End Date Greta Martin, TRACY [address] [place] [id number] PCP - General NURSE PRACTITIONER 11/24/19
--- OUTSIDE RECORDS SUMMARY | 2024-08-05 13:10 | XMS_ITS | Clinical Summary ---
Author Organization [facility] Address [address] [place] [address] Phone Care Team Providers Care Continuous Pickling Line Pickler Helper Name Role Phone RAIN SCHMIDT MD Primary Care Provider [phone] Reason for Visit and Chief Complaint The Chief Complaint is: 2 MO FU Plan of Treatment Instructions to patient Intervention and counseling on cessation of tobacco use : Patient recieved smoking cessation handout Last Documented On 1:22PM ; [facility] Education and Decision Aids were provided during visit for: Pill Count: twelve HYDROCODO NE Last Documented On 1:23PM ; [facility] Assessments Includes: Assessments from this encounter Findings - Osteoarthritis of right knee [M17.11 - Unilateral primary osteoarthritis, right knee] - Last Documented On 07/16/2023 2:02PM ; [facility] - Osteoarthritis of left knee [M17.12 - Unilateral primary osteoarthritis, left knee] - Last Documented On 07/16/2023 2:02PM ; [facility] - Osteoarthritis of both knees [M17.0 - Bilateral primary osteoarthritis of knee] - Last Documented On 07/16/2023 2:02PM ; [facility] - Myalgia [M79.18 - Myalgia, other site] - Last Documented On 07/16/2023 2:02PM ; [facility] - Chronic pain syndrome [G89.4 - Chronic pain syndrome] - Last Documented On 07/16/2023 2:02PM ; [facility] - [facility] use of opiate analgesic [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.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] - Last Documented On 07/16/2023 2:02PM ; [facility] Instructions Includes: Instructions from this encounter Instructions to patient Intervention and counseling on cessation of tobacco use : Patient recieved smoking cessation handout Last Documented On 1:22PM ; [facility] Education and Decision Aids were provided during visit for: Pill Count: twelve HYDROCODO NE Last Documented On 4 1:23PM ; [facility] Medical Equipment - Implanted Devices Includes: Current Devices No Medical Equipment Recorded Medications Includes: Medications discussed during this encounter and other current Medications Discontinued / Stopped on this date on 05/09/2023 Phentermine HCl 15 MG Oral Capsule Provid er: Diagnosis: Last Documented On 07/16/2023 1:21PM By Nia PEARSON ; [facility] Labetalol HCl 100 MG Oral Tablet Provider : IDA ZAMAN PA-C Diagnosis: Last Documented On 07/16/2023 1:20PM By Nia PEARSON ; [facility] New / [facility] this visit [facility] HYDROcodone-Acetaminophen 7. 5-325 MG Oral Tablet Provider: KARLA CUEVAS 30 day supply: 90 tablet, 0 refills Diagnosis: Unilateral primary osteoarthritis, right knee 1 po q 6-8 hours/max 3 per day Pharmacy: [facility] [address] [place], [address] - Last Documented On 4 9:50AM By KARLA COLE ; [facility] Current Medications (continue as prescribed) Pregabalin 150 MG Oral Capsule 10/28/2023 Provider: DUTCH GRIFFIN Diagnosis: 1 CAPSULE TWO TIMES A DAY Last Documented On 4 4:11PM By DWIGHT JUDD ; [facility] HYDROcodone-Acetaminophen 7. 5-325 MG Oral Tablet 10/17/2023 Provider: TRACY GRIFFIN-HAILE Diagnosis: Unilateral prima ry osteoarthritis, right knee 1 po q 6-8 hours/max 3 per day Last Documented On 4 4:00PM By DWIGHT JUDD ; [facility] Diclofenac Sodium 50 MG Oral Tablet Delayed Release 09/04/2023 Provider: DWIGHT LUX RN-ALLI SOURCER-BC Diagnosis: 1 TABLET BY MOUTH EVERY 6-8 HOURS/MAX 3 PER DAY Last Documented On 4 1:32PM By DWIGHT KIRK [facility] ; [facility] Labetalol HCl 200 MG Oral Tablet 06/27/2023 Provider : SHLOMO BRAN [facility] Diagnosis: Last Documented On 07/16/2023 1:20PM By Nia PEARSON ; [facility] amLODIPine Besylate 10 MG Oral Tablet 04/29/2023 Pro vider: IDA ZAMAN PA-C Diagnosis: Last Documented On 3 11:08AM By Nia PEARSON ; [facility] Symbicort 80-4.5 MCG/ACT Inhalation Aerosol 04/24/2023 Provider: Diagnosis: Last Documented On 3 11:11AM By Nia PEARSON ; [facility] Medications Administered Includes: Administered Medications from this encounter No Administered Medications Recorded Vital Signs Includes: Vital Signs from this encounter Vital Name 07/16/2023 01:16P Blood Pressure Sitting R 120/60 Pulse Rate-Sitting (bpm) 55 Temp-Temporal 96.4 Height (in) 70 Weight (lb) 360 Body Mass Index 51.7 Body Surface Area 2.7 Pain Level 7 Oxygen Saturation (%) 95 Last Documented: On 07/16/2023 1:20PM ; [facility] Results Includes: Results discussed during this encounter No Results Recorded For Specified Dates History of Present Illness Includes: History of Present Illness from this encounter HPI - Allergy list reviewed - Problem list reviewed - Medication reconciliation performed - Medication list reviewed - Prescription Drug Monitoring Program website checked. 07/10/20 - How much of the medication are you taking a day? 2-3 TIMES A DAY PRN - Last dose of medication? 6 AM - Pain is continuous - Primary [...] aggravated lifting - Last drug screen appropriate 02/19/23 Discussion: Patient presents in follow up for medication [...] lateral aspect Social History Description Last Updated Current smoker 07/16/2023 Last Documented On 4 2:02PM ; [facility] No consumption of alcohol 07/16/2023 Last Documented On 4 2:02PM ; [facility] Not using drugs 07/16/2023 Last Documented On 4 2:02PM ; [facility] [PHQ-2] Patient Health Questionnaire 2 i tem total score: 6 (Scale: 0-6) 10/11/2020 Last Documented On 4 1:12PM ; [facility] Difficulty walking 10/11/2020 Last Documented On 4 1:12PM ; [facility] 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 10/11/2020 Last Documented On 4 1:12PM ; [facility] Cigarette smoking 1 1/2 packs daily 01/10 Last Documented On 4 1:12PM ; [facility] Single 01/27/2018 Last Documented On 4 1:12PM ; [facility] Smoking status : Current everyday smoker 01/27/2018 Last Documented On 4 1:12PM ; [facility] Procedures and Surgical History Includes: Procedures from this encounter Procedures Code Diagnosis Performing Provider Service L ocation Service Date intervention and counseling on cessation of tobacco use : Patient recieved smoking cessation handout 4000F Last Documented On 4 1:22PM ; [facility] use of tobacco assessment performed 1000F Last Documented On 4 1:22PM ; [facility] patient screened for future fall risk: documentation of any fall with injury in past year 1100F Last Documented On 4 1:13PM ; [facility] standardized depression screening: negative for symptoms 3351F Last Documented On 4 1:13PM ; [facility] review of medications documented 1160F Last Documented On 4 1:22PM ; [facility] screening for adult depression: impressi on and score one Last Documented On 4 2:01PM ; [facility] SOAPP-R: total score 4 Last Documented On 4 2:00PM ; [facility] Surgical History Last Updated No Pacemaker 07/16/2023 Last Documented On 4 2:02PM ; [facility] History of tonsillectomy 01/27/2018 Last Documented On 4 1:12PM ; [facility] Medical History Includes: Medical History addressed during this encounter Description Last Updated Denies a fear of falling. 07/16/2023 Last Documented On 4 2:02PM ; [facility] Has had no fall in the last 12 months. 0 07/16/2023 Last Documented On 4 2:02PM ; [facility] Moderate to severe pain 02/19/2023 Last Documented On 4 1:12PM ; [facility] Pain Clinic 02/19/2023 Last Documented On 4 1:12PM ; [facility] Please list all illnesses/co nditions you have been diagnosed with: High blood pressure 02/19/2023 Last Documented On 4 1:12PM ; [facility] Reviewed and Unchanged 07/20/2019 Last Documented On 4 1:12PM ; [facility] Surgery Adenoidectomy 01/27/2018 Last Documented On 4 1:12PM ; [facility] History of depression 01/27/2018 Last Documented On 4 1:12PM ; [facility] Exposure to dust 01/27/2018 Last Documented On 4 1:12PM ; [facility] Smoke exposure 01/27/2018 Last Documented On 4 1:12PM ; [facility] History of hypertension 01/27/2018 Last Documented On 4 1:12PM ; [facility] Family History Includes: Family History addressed [...] Time Diagnosis PAIN MANAGEMENT FOLLOW UP KARLA GRIMM-HAILE [facility] 07/16/19 24 1:12PM 1:54PM Chronic Pain Syndrome,Oste oarthritis Knees Both,Osteoart hritis Knee Right,Osteoar thritis Knee Left,Group Home Use of Opiate Analgesic,Mellisa lgia , Other Site (M79.18) Insurance Includes: Active Insurance Policies Plan Name Member ID Group # Subscriber Relationship Effect b[place] Dates 1 - [facility] [id number] QUINN LAMBERT Self Clinical Notes Includes: Clinical Notes from this encounter * Progress note Date Encounter Last Documented by 07/16/2023 PAIN MANAGEMENT FOLLOW UP Last d ocumented on 07/16/2023; 2:02 PM, KARLA MARIE ANP-; [facility] Chief Complaint The Chief Complaint is: 2 MO FU. History of Present Illness - Allergy list reviewed - Problem list reviewed - Medication reconciliation performed - Medication list reviewed - Prescription Drug Monitoring Program website checked. 07/10/20 - How much of the medication are you taking a day? 2-3 TIMES A DAY PRN - Last dose of medication? 6 AM - Pain is continuous - Primary [...] aggravated lifting - Last drug screen appropriate 02/19/23 Discussion: Patient presents in follow up for medication [...] spondylosis with multilevel stenosis Xray C spine 10/29/19: Mild to moderate cervical spondylosis X-ray cervical [...] 8 HOURS/MAX 3 PER DAY, 30 days, 2 refills - HYDROcodone-Acetaminophen 5-325 MG Oral Tablet 1 po q 6-8 hours prn/max 3 per day, 7 days, 0 refills - Labetalol HCl 200 MG Oral Tablet One tablet twice a day 30 days, 0 refills - Pregabalin 150 MG Oral Capsule 1 CAPSULE TWO TIMES A DAY, 30 days, 2 refills - Symbicort 80-4.5 MCG/ACT Inhalation Aerosol [...] than noted. 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 Counseling/Education - Pill Count: twelve HYDROCODONE Discussed Will continue chronic opioid therapy. [...] day. F/U 2 months Plan StartCited - [facility] (current) use of opiate analgesic Lab: Drug Monitoring, Panel 6 w/confirmation -Urine [id number] Lab: Prescribed Drugs Medmatch [id number] EndCited StartCited - Unilateral primary osteoarthritis, right knee [...] one. Health Reminders - Assess BMI satisfied 07/16/2023. - Assess Tobacco Use satisfied 07/16/2023. - Depression Screening satisfied 07/16/2023. - Follow up plan for Depression Screening satisfied 07/16/2023. - Smoking & Tobacco Cessation Intervention and Counseling satisfied 07/16/2023.
--- OUTSIDE RECORDS SUMMARY | 2024-08-05 13:11 | XMS_ITS | Clinical Summary ---
Author Organization [facility] Address [address] [place] [id number] Phone Care Team Providers Care Salesperson [employer] Name Role Phone RAIN SCHMIDT MD Primary Care Provider [phone] Reason for Visit and Chief Complaint RX ISSUE/REFILL Plan of Treatment No Plan of Treatment Recorded Assessments Includes: Assessments from this encounter No Assessments Recorded Medical Equipment - Implanted Devices Includes: Current Devices No Medical Equipment Recorded Medications Includes: Medications discussed during this encounter and other current Medications New / Renewed during this visit DUTCH GRIFFIN on 10/17/2023 HYDROcodone-Acetaminophen 7. 5-325 MG Oral Tablet Provider: DUTCH GRIFFIN 30 day supply: 90 tablet, 0 refills Diagnosis: Unilateral primary osteoarthritis, right knee 1 po q 6-8 hours/max 3 per day Pharmacy: [facility], [address] - Last Documented On 4 4:00PM By DWIGHT JUDD ; [facility] Current Medications (continue as prescribed) Pregabalin 150 MG Oral Capsule 10/28/2023 Provider: DUTCH GRIFFIN Diagnosis: 1 CAPSULE TWO TIMES A DAY Last Documented On 4 4:11PM By DWIGHT JUDD ; [facility] Diclofenac Sodium 50 MG Oral Tablet Delayed Release 09/04/2023 Provider: DUTCH MILES Diagnosis: 1 TABLET BY MOUTH EVERY 6-8 HOURS/MAX 3 PER DAY Last Documented On 4 1:32PM By DWIGHT JUDD ; [facility] Labetalol HCl 200 MG Oral Tablet 06/27/2023 Provider : SHLOMO MOLINA-BC Diagnosis: Last Documented On 07/16/2023 1:20PM By Nia PEARSON ; [facility] amLODIPine Besylate 10 MG Oral Tablet 04/29/2023 Pro vider: IDA ZAMAN PA-C Diagnosis: Last Documented On 3 11:08AM By Nia PEARSON ; [facility] Symbicort 80-4.5 MCG/ACT Inhalation Aerosol 04/24/2023 Provider: Diagnosis: Last Documented On 3 11:11AM By Nia PEARSON ; [facility] Medications Administered Includes: Administered Medications from this encounter No Administered Medications Recorded Results Includes: Results discussed during this encounter No Results Recorded For Specified Dates History of Present Illness Includes: History of Present Illness from this encounter No History of Present Illness Recorded Social History Description Last Updated No consumption of alcohol 09/16/2023 Last Documented On 4 2:35PM ; [facility] Not using drugs 09/16/2023 Last Documented On 4 2:35PM ; [facility] Current smoker 07/16/2023 Last Documented On 4 2:35PM ; [facility] [PHQ-2] Patient Health Questionnaire 2 i tem total score: 6 (Scale: 0-6) 10/11/2020 Last Documented On 4 2:35PM ; [facility] Difficulty walking 10/11/2020 Last Documented On 4 2:35PM ; [facility] 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 10/11/2020 Last Documented On 4 2:35PM ; [facility] Cigarette smoking 1 1/2 packs daily 01/10 Last Documented On 4 2:35PM ; [facility] Single 01/27/2018 Last Documented On 4 2:35PM ; [facility] Smoking status : Current everyday smoker 01/27/2018 Last Documented On 4 2:35PM ; [facility] Procedures and Surgical History Surgical History Last Updated No Pacemaker 09/16/2023 Last Documented On 4 2:35PM ; [facility] History of tonsillectomy 01/27/2018 Last Documented On 4 2:35PM ; [facility] Medical History Includes: Medical History addressed during this encounter Description Last Updated Denies a fear of falling. 09/16/2023 Last Documented On 4 2:35PM ; [facility] Has had no fall in the last 12 months. 0 09/16/2023 Last Documented On 4 2:35PM ; [facility] Moderate to severe pain 02/19/2023 Last Documented On 4 2:35PM ; [facility] Pain Clinic 02/19/2023 Last Documented On 4 2:35PM ; [facility] Please list all illnesses/co nditions you have been diagnosed with: High blood pressure 02/19/2023 Last Documented On 4 2:35PM ; [facility] Reviewed and Unchanged 07/20/2019 Last Documented On 4 2:35PM ; [facility] Surgery Adenoidectomy 01/27/2018 Last Documented On 4 2:35PM ; [facility] History of depression 01/27/2018 Last Documented On 4 2:35PM ; [facility] Exposure to dust 01/27/2018 Last Documented On 4 2:35PM ; [facility] Smoke exposure 01/27/2018 Last Documented On 4 2:35PM ; [facility] History of hypertension 01/27/2018 Last Documented On 4 2:35PM ; [facility] Family History Includes: Family History addressed during this encounter Description Last Updated Family medical history was unknown Unkno wn pt is adopted 01/27/2018 Last Documented On 4 2:35PM ; [facility] Review of Systems Includes: Review of Systems [...] Location Date Check-In Time Check-Out Time Diagnosis RX ISSUE/REFILL 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, [employer]ARD [employer]CH[employer]ER-BC 10/17/2023 2:36PM 11:59PM Insurance Includes: Active Insurance Policies Plan Name Member ID Group # Subscriber Relationship Effect b[place] Dates 1 - [facility] [id number] QUINN LAMBERT Self Clinical Notes Includes: Clinical Notes from this encounter * Progress note Date Encounter Last Documented by 10/17/2023 RX ISSUE/REFILL Last documented on 10/17/2023; 3:57 PM, DWIGHT Gil [employer]AGAN [employer]S IDENTIFICATION TECHNICIAN-FPA, [employer] MERCHANDISER-BC; [facility] Chief Complaint Phone Call - Chief Concern: Reason for call:RX REFILL Patient is requesting a refill on HYDROCODONE 7.5/325 ~How is medication taken? TID ~How many are left?4 Risk Assessment Score: LOW ~[place]:09/18/23 Last Office Visit: 09/16/23 ~ pt phone # for Return call: ~Last Drug Screen:07/17/23 ~Date/Initials:10/17/23 CB. Current Medication - amLODIPine Besylate 10 MG [...] Aerosol as directed 30 days, 0 refills Past Medical/Surgical History Reported: Surgery Adenoidectomy. Pain [...] Depression Reviewed and Unchanged. Surgical: - Tonsillectomy Social History Difficulty walking. Tobacco use: Cigarette smoking 1 1/2 packs daily, smoking packs of cigarettes per day 1 pack, and smoking status: Current everyday smoker. Alcohol: No consumption of alcohol. Drug Use: Not using drugs. Marital: Single. Functional: [PHQ-2] Patient Health Questionnaire 2 item total score: 6 (Scale: 0-6). Allergies - No Known Allergies Family History Family medical history was unknown Unknown pt is adopted Plan StartCited - Unilateral primary osteoarthritis, right knee HYDROcodone-Acetaminophen 7.5-325 MG tablet 1 po q 6-8 hours/max 3 per day, 30 days, 0 refills EndCited Health Reminders - Assess Tobacco Use satisfied 10/17/2023.
--- OUTSIDE RECORDS SUMMARY | 2024-08-05 13:11 | XMS_ITS | Clinical Summary ---
Author Organization [facility] Address [address] [place] [phone] Phone Care Team Providers Care Assurance Sourcing Manager Name Role Phone RAIN SCHMIDT MD Primary Care Provider [phone] Reason for Visit and Chief Complaint RX ISSUE/REFILL Plan of Treatment No Plan of Treatment Recorded Assessments Includes: Assessments from this encounter No Assessments Recorded Medical Equipment - Implanted Devices Includes: Current Devices No Medical Equipment Recorded Medications Includes: Medications discussed during this encounter and other current Medications Discontinued / Stopped on this date KARLA CUEVAS on 07/16/2023 HYDROcodone-Acetaminophen 7. 5-325 MG Oral Tablet Provider: KARLA CUEVAS Diagnosis: Unilateral prima ry osteoarthritis, right knee Last Documented On 4 9:50AM By KARLA CUEVAS ; [facility] New / Renewed during this visit KARLA CUEVAS on 08/18/2023 HYDROcodone-Acetaminophen 7. 5-325 MG Oral Tablet Provider: KARLA CUEVAS 30 day supply: 90 tablet, 0 refills Diagnosis: Unilateral primary osteoarthritis, right knee 1 po q 6-8 hours/max 3 per daystart 08/18 Pharmac y: [facility] - [facility], [address] - Last Documented On 4 1:32PM By KARLA CUEVAS ; [facility] Current Medications (continue as prescribed) Pregabalin 150 MG Oral Capsule 10/28/2023 Provider: DUTCH GRIFFIN Diagnosis: 1 CAPSULE TWO TIMES A DAY Last Documented On 4 4:11PM By DWIGHT JUDD ; [facility] HYDROcodone-Acetaminophen 7. 5-325 MG Oral Tablet 10/17/2023 Provider: DWIGHT KIRK INSTRUCTOR [employer]-Catie, [facility] Diagnosis: Unilateral prima ry osteoarthritis, right knee 1 po q 6-8 hours/max 3 per day Last Documented On 4 4:00PM By DWIGHT KIRK [facility] ; [facility] Diclofenac Sodium 50 MG Oral Tablet Delayed Release 09/04/2023 Provider: DWIGHT KIRK AP RN-A, [employer] Diagnosis: 1 TABLET BY MOUTH EVERY 6-8 HOURS/MAX 3 PER DAY Last Documented On 4 1:32PM By DWIGHT KIRK [facility] ; [facility] Labetalol HCl 200 MG Oral Tablet 06/27/2023 Provider : SHLOMO BRAN [facility] Diagnosis: Last Documented On 07/16/2023 1:20PM By Nia PEARSON ; [facility] amLODIPine Besylate 10 MG Oral Tablet 04/29/2023 Pro vider: IDA ZAMAN PA-C Diagnosis: Last Documented On 3 11:08AM By Nia PEARSON ; [facility] Symbicort 80-4.5 MCG/ACT Inhalation Aerosol 04/24/2023 Provider: Diagnosis: Last Documented On 3 11:11AM By Nia PEARSON ; [facility] Medications Administered Includes: Administered Medications from this encounter No Administered Medications Recorded Results Includes: Results discussed during this encounter No Results Recorded For Specified Dates History of Present Illness Includes: History of Present Illness from this encounter No History of Present Illness Recorded Social History Description Last Updated Current smoker 07/16/2023 Last Documented On 4 9:45AM ; [facility] [PHQ-2] Patient Health Questionnaire 2 i tem total score: 6 (Scale: 0-6) 10/11/2020 Last Documented On 4 9:45AM ; [facility] Difficulty walking 10/11/2020 Last Documented On 4 9:45AM ; [facility] 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 10/11/2020 Last Documented On 4 9:45AM ; [facility] Cigarette smoking 1 1/2 packs daily 01/10 Last Documented On 4 9:45AM ; [facility] Single 01/27/2018 Last Documented On 4 9:45AM ; [facility] Smoking status : Current everyday smoker 01/27/2018 Last Documented On 4 9:45AM ; [facility] Procedures and Surgical History Surgical History Last Updated History of tonsillectomy 01/27/2018 Last Documented On 4 9:45AM ; [facility] Medical History Includes: Medical History addressed during this encounter Description Last Updated Moderate to severe pain 02/19/2023 Last Documented On 4 9:45AM ; [facility] Pain Clinic 02/19/2023 Last Documented On 4 9:45AM ; [facility] Please list all illnesses/co nditions you have been diagnosed with: High blood pressure 02/19/2023 Last Documented On 4 9:45AM ; [facility] Reviewed and Unchanged 07/20/2019 Last Documented On 4 9:45AM ; [facility] Surgery Adenoidectomy 01/27/2018 Last Documented On 4 9:45AM ; [facility] History of depression 01/27/2018 Last Documented On 4 9:45AM ; [facility] Exposure to dust 01/27/2018 Last Documented On 4 9:45AM ; [facility] Smoke exposure 01/27/2018 Last Documented On 4 9:45AM ; [facility] History of hypertension 01/27/2018 Last Documented On 4 9:45AM ; [facility] Family History Includes: Family History addressed during [...] Check-In Time Check-Out Time Diagnosis RX ISSUE/REFILL KARLA CUEVAS 08/18/2023 9:45AM 11:59PM Insurance Includes: Active Insurance Policies Plan Name Member ID Group # Subscriber Relationship Effect b[place] Dates 1 - [facility] [id number] QUINN Mary [employer] Self Clinical Notes Includes: Clinical Notes from this encounter * Progress note Date Encounter Last Documented by 08/18/2023 RX ISSUE/REFILL Last documented on 08/18/2023; 9:50 AM, KARLA MARIE ANP-; [facility] Chief Complaint Phone Call - Chief Concern: Reason for call:RX REFILL Patient is requesting a refill on HYDROCODONE 7.5/325 ~How is medication taken? TID ~How many are left?2 Risk Assessment Score: LOW ~[place]:07/19/23 Last Office Visit: 07/16/23 ~ pt phone # for Return call: ~Last Drug Screen:02/19/23 ~Date/Initials: 08/18/23 CB. Past Medical/Surgical History Reported: Surgery Adenoidectomy. Pain [...] A DAY, 30 days, 2 refills - Pregabalin 150 MG Oral Capsule [...] (Scale: 0-6). Allergies - No Known Allergies Plan StartCited - Unilateral primary osteoarthritis, right knee HYDROcodone-Acetaminophen 7.5-325 MG tablet 1 po q 6-8 hours/max 3 per daystart 08/18, 30 days, 0 refills EndCited Health Reminders - Assess Tobacco Use satisfied 08/18/2023.
--- OUTSIDE RECORDS SUMMARY | 2024-08-05 13:11 | XMS_ITS | Encounter Summary ---
Author Organization [facility] Address [address] [place] [id number] Care Team Providers Care Electroencephalographic Technologist Name Role Phone Gallito Padgett MD Primary Care Provider [phone] Greta Martin Primary Care Provider [phone] Devan Cleaning DO Primary Care Provider [phone] Greta Martin Primary Care Provider [phone] Encounter Details Date Type Department Care Team (Late st Contact Info) Description 10/17/2018 Abstract SFL CONVERSION [address] [place] [address] , Generic Conversion, Social History Tobacco Use Types Packs/Day Years Used Date Smoking Tobacco: Never Assessed Comments Unknown Sex and Gender Information Value Date Recorded Sex Assigned at Not on file Legal Sex Female 8:52 PM CDT Gender Identity Not on file Sexual Orientation Straight 09/09/2019 6: 47 AM CDT documented as of this encounter Plan of Treatment Not on file documented as of this encounter Visit Diagnoses Not on filedocumented in this encounter Additional Health Concerns Infection Onset Date Last Indicated Resolved Time COVID-19 Rule Out 10/18/2020 10/19/2020 10/19/2020 10:10 AM CDT documented as of this encounter Care Teams Electroencephalographic Technologist Relationship Specialty Start Date End Date Gallito Padgett MD [address] [place] [address] PCP - General FAMILY PRACTICE 05/07/19 09/08/19 Greta Martin FNP [address] [place] [address] PCP - General NURSE PRACTITIONER 09/09/19 10/12/19 Devan Cleaning DO [address] [place] [address] PCP - General FAMILY PRACTICE 10/13/19 11/23/19 Greta Martin FNP [address] [place] [address] PCP - General NURSE PRACTITIONER 11/24/19 documented as of this encounter
--- OUTSIDE RECORDS SUMMARY | 2024-08-05 13:11 | XMS_ITS ---
Care Plan - [facility] Created on: August 05, 2024 QUINN LAMBERT : 1965 Sex: Female Author Organization [facility] Address [address] [place] [phone] Phone Care Team Providers Care Hims Coder Name Role Phone RAIN SCHMIDT MD Primary Care Provider [phone]
--- OUTSIDE RECORDS SUMMARY | 2024-08-05 13:11 | XMS_ITS ---
Author Organization [facility] Address [address] [place] [address] Phone Care Team Providers Care Language Instructor Name Role Phone RAIN SCHMIDT MD Primary Care Provider Plan of Treatment Referrals To Diagnosis Pain Management [address] [id number] - Radiculopathy, cervical region Note: consent for C6-7 inter laminar epiduralDr. Leonardo Last Documented On 9 11:56AM ; [facility] Neurosurgeon BARBRA BARROS MD [facility] - [address] [place] [id number] - Other spondylosis with radiculopathy, site unspecified Last Documented On 0 8:30AM ; [facility] Pain Management [address] [id number] - Pain in right knee Note: consent for right knee steroid injection under ultrasound guidance Last Documented On 2 11:02AM ; [facility] Orthopedic [facility] - [facility] [place] [address] - Derang of post horn of lat mensc due to old tear/inj, r knee Note: [facility] orthopedic [facility] Last Documented On 4 1:27PM ; [facility] Pain Management [address] [id number] - Bilateral primary osteoarthritis of knee Note: consent for bilateral steroid kne injection under utrasound guidance Last Documented On 4 9:09AM ; [facility] Instructions to patient Intervention and counseling on cessation of tobacco use : Patient recieved smoking cessation handout Last Documented On 4 1:05PM ; [facility] Intervention and counseling on cessation of tobacco use : Patient recieved smoking cessation handout Last Documented On 4 1:22PM ; [facility] Intervention and counseling on cessation of tobacco use : Patient recieved smoking cessation handout Last Documented On 3 12:47PM ; [facility] Intervention and counseling on cessation of tobacco use : Patient recieved smoking cessation handout Last Documented On 2 1:36PM ; [facility] Intervention and counseling on cessation of tobacco use : Patient recieved smoking cessation handout Last Documented On 2 1:15PM ; [facility] Intervention and counseling on cessation of tobacco use : Patient recieved smoking cessation handout Last Documented On 2 2:27PM ; [facility] Intervention and counseling on cessation of tobacco use : Patient recieved smoking cessation handout Last Documented On 1 2:51PM ; [facility] Intervention and counseling on cessation of tobacco use : Patient recieved smoking cessation handout Last Documented On 0 10:13AM ; [facility] Intervention and counseling on cessation of tobacco use : Patient recieved smoking cessation handout Last Documented On 9 9:39AM ; [facility] Education and Decision Aids were provided during visit for: Pill Count: eight HYDROCODON E Last Documented On 4 1:16PM ; [facility] Pill Count: twelve HYDROCODO NE Last Documented On 4 1:23PM ; [facility] Pill Count: five HYDROCODONE Last Documented On 3 11:12AM ; [facility] Pill Count: 42 HYDROCODONE Last Documented On 3 3:08PM ; [facility] Pill Count: three HYDROCODON E Last Documented On 3 1:33PM ; [facility] Pill Count: five HYDROCODONE Last Documented On 3 1:29PM ; [facility] Pill Count: 65 Appropriate Last Documented On 0 10:35AM ; [facility] Pill Count: 91.5 Appropriate Last Documented On 9 10:33AM ; [facility] Pill Count 67 Appropriate Last Documented On 9 10:05AM ; [facility] Pill Count 67 Appropriate Last Documented On 9 9:26AM ; [facility] Assessments Includes: Assessments for all patient encounters Findings Encounter Date Chronic pain syndrome PAIN MANAGEMENT FO LLOW UP with KARLA L FRANK ANP-BC 09/16/2023 Last Documented On 4 1:33PM ; [facility] nursing home use of opiate analgesic PAIN M ANAGEMENT FOLLOW UP with KARLA L FRANK ANP-BC 09/16/2023 Last Documented On 4 1:33PM ; [facility] Myalgia PAIN MANAGEMENT FOLLOW UP with T JUSTO L FRANK ANP-BC 09/16/2023 Last Documented On 4 1:33PM ; [facility] Osteoarthritis of both knees PAIN MANAGE MENT FOLLOW UP with KARLA L FRANK ANP-BC 09/16/2023 Last Documented On 4 1:33PM ; [facility] Osteoarthritis of left knee PAIN MANAGEM ENT FOLLOW UP with KARLA L FRANK ANP-BC 09/16/2023 Last Documented On 4 1:33PM ; [facility] Osteoarthritis of right knee PAIN MANAGE MENT FOLLOW UP with KARLA L FRANK ANP-BC 09/16/2023 Last Documented On 4 1:33PM ; [facility] Chronic pain syndrome PAIN MANAGEMENT FO LLOW UP with KARLA L FRANK ANP-BC 07/16/2023 Last Documented On 4 2:02PM ; [facility] nursing home use of opiate analgesic PAIN M ANAGEMENT FOLLOW UP with KARLA L FRANK ANP-BC 07/16/2023 Last Documented On 4 2:02PM ; [facility] Myalgia PAIN MANAGEMENT FOLLOW UP with T JUSTO L FRANK ANP-BC 07/16/2023 Last Documented On 4 2:02PM ; [facility] Osteoarthritis of both knees PAIN MANAGE MENT FOLLOW UP with KARLA L FRANK ANP-BC 07/16/2023 Last Documented On 4 2:02PM ; [facility] Osteoarthritis of left knee PAIN MANAGEM ENT FOLLOW UP with KARLA Mary FRANK [facility] 07/16/2023 Last Documented On 4 2:02PM ; [facility] Osteoarthritis of right knee PAIN MANAGE MENT FOLLOW UP with KARLA L FRANK [facility] 07/16/2023 Last Documented On 4 2:02PM ; [facility] Chronic pain syndrome PAIN MANAGEMENT FO LLOW UP with KARLA L FRANK [facility] 05/09/2023 Last Documented On 3 11:26AM ; [facility] 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 PAIN M ANAGEMENT FOLLOW UP with KARLA L FRANK [facility] 05/09/2023 Last Documented On 3 11:26AM ; [facility] Myalgia PAIN MANAGEMENT FOLLOW UP with T JUSTO L FRANK [facility] 05/09/2023 Last Documented On 3 11:26AM ; [facility] Osteoarthritis of both knees PAIN MANAGE MENT FOLLOW UP with KARLA L FRANK [facility] 05/09/2023 Last Documented On 3 11:26AM ; [facility] Osteoarthritis of left knee PAIN MANAGEM ENT FOLLOW UP with KARLA L FRANK [facility] 05/09/2023 Last Documented On 3 11:26AM ; [facility] Osteoarthritis of right knee PAIN MANAGE MENT FOLLOW UP with KARLA L FRANK [facility] 05/09/2023 Last Documented On 3 11:26AM ; [facility] Chronic pain syndrome * PHONE CALL with KARLA L FRANK [facility] 03/03/2023 Last Documented On 3 1:34PM ; [facility] nursing home use of opiate analgesic * PHON E CALL with KARLA L FRANK [facility] 03/03/2023 Last Documented On 3 1:34PM ; [facility] Myalgia * PHONE CALL with KARLA Mary S[place] [facility] 03/03/2023 Last Documented On 3 1:34PM ; [facility] Osteoarthritis of both knees * PHONE CALL with James ROJASE Mary FRANK ANP-BC 03/03/2023 Last Documented On 3 1:34PM ; [facility] Osteoarthritis of left knee * PHONE CALL with SÁNCHEZ Hernandez FRANK ANP-BC 03/03/2023 Last Documented On 3 1:34PM ; [facility] Osteoarthritis of right knee * PHONE CALL with T JUSTO L FRANK ANP-BC 03/03/2023 Last Documented On 3 1:34PM ; [facility] Chronic pain syndrome PAIN MANAGEMENT FO LLOW UP with KARLA L FRANK ANP-BC 02/19/2023 Last Documented On 3 8:22AM ; [facility] 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 PAIN M ANAGEMENT FOLLOW UP with KARLA L FRANK ANP-BC 02/19/2023 Last Documented On 3 8:22AM ; [facility] Myalgia PAIN MANAGEMENT FOLLOW UP with T JUSTO L FRANK ANP-BC 02/19/2023 Last Documented On 3 8:22AM ; [facility] Osteoarthritis of both knees PAIN MANAGE MENT FOLLOW UP with KARLA L FRANK ANP-BC 02/19/2023 Last Documented On 3 8:22AM ; [facility] Osteoarthritis of left knee PAIN MANAGEM ENT FOLLOW UP with KARLA L FRANK ANP-BC 02/19/2023 Last Documented On 3 8:22AM ; [facility] Osteoarthritis of right knee PAIN MANAGE MENT FOLLOW UP with KARLA L FRANK ANP-BC 02/19/2023 Last Documented On 3 8:22AM ; [facility] Arthralgia of the left knee/patella/tibia/fibula INJECTION with INES PHILLIPS MD 01/22/2023 Last Documented On 3 1:33PM ; [facility] Arthralgia of the right knee/patella/tibia/fibula INJECTION with INES PHILLIPS MD 01/22/2023 Last Documented On 3 1:33PM ; [facility] Osteoarthritis of both knees INJECTION with MYKEL PHILLIPS MD 01/22/2023 Last Documented On 3 1:33PM ; [facility] Arthralgia of the left knee/patella/tibia/fibula INJECTION with INES PHILLIPS MD 01/15/2023 Last Documented On 3 1:20PM ; [facility] Arthralgia of the right knee/patella/tibia/fibula INJECTION with INES PHILLIPS MD 01/15/2023 Last Documented On 3 1:20PM ; [facility] Osteoarthritis of both knees INJECTION with WILL ISA PHILLIPS MD 01/15/2023 Last Documented On 3 1:20PM ; [facility] Arthralgia of the left knee/patella/tibia/fibula INJECTION with INES PHILLIPS MD 01/08/2023 Last Documented On 3 1:28PM ; [facility] Arthralgia of the right knee/patella/tibia/fibula INJECTION with INES PHILLIPS MD 01/08/2023 Last Documented On 3 1:28PM ; [facility] Osteoarthritis of both knees INJECTION with WILL ISA PHILLIPS MD 01/08/2023 Last Documented On 3 1:28PM ; [facility] Arthralgia of the left knee/patella/tibia/fibula PAIN MANAGEMENT FOLLOW UP with KARLA MARIE ANPBC 12/12/2022 Last Documented On 3 1:55PM ; [facility] Arthralgia of the right knee/patella/tibia/fibula PAIN MANAGEMENT FOLLOW UP with KARLA VILLALOBOSS ANP-BC 12/12/2022 Last Documented On 3 1:55PM ; [facility] Chronic pain syndrome PAIN MANAGEMENT FO LLOW UP with KARLA VILLALOBOSS ANP-BC 12/12/2022 Last Documented On 3 1:55PM ; [facility] Myalgia PAIN MANAGEMENT FOLLOW UP with T JUSTO VILLALOBOSS ANP-BC 12/12/2022 Last Documented On 3 1:55PM ; [facility] Osteoarthritis of both knees PAIN MANAGE MENT FOLLOW UP with KARLA VILLALOBOSS ANP-BC 12/12/2022 Last Documented On 3 1:55PM ; [facility] Osteoarthritis of left knee PAIN MANAGEM ENT FOLLOW UP with KARLA L FRANK ANP-BC 12/12/2022 Last Documented On 3 1:55PM ; [facility] Osteoarthritis of right knee PAIN MANAGE MENT FOLLOW UP with KARLA L FRANK ANP-BC 12/12/2022 Last Documented On 3 1:55PM ; [facility] Arthralgia of the left knee/patella/tibia/fibula PAIN MANAGEMENT FOLLOW UP with KARLA L FRANK ANP-BC 09/12/2022 Last Documented On 3 2:03PM ; [facility] Arthralgia of the right knee/patella/tibia/fibula PAIN MANAGEMENT FOLLOW UP with KARLA L FRANK ANP-BC 09/12/2022 Last Documented On 3 2:03PM ; [facility] Chronic pain syndrome PAIN MANAGEMENT FO LLOW UP with KARLA L FRANK ANP-BC 09/12/2022 Last Documented On 3 2:03PM ; [facility] Myalgia PAIN MANAGEMENT FOLLOW UP with T JUSTO L FRANK ANP-BC 09/12/2022 Last Documented On 3 2:03PM ; [facility] Osteoarthritis of both knees PAIN MANAGE MENT FOLLOW UP with KARLA L FRANK ANP-BC 09/12/2022 Last Documented On 3 2:03PM ; [facility] Osteoarthritis of left knee PAIN MANAGEM ENT FOLLOW UP with KARLA L FRANK ANP-BC 09/12/2022 Last Documented On 3 2:03PM ; [facility] Osteoarthritis of right knee PAIN MANAGE MENT FOLLOW UP with KARLA L FRANK ANP-BC 09/12/2022 Last Documented On 3 2:03PM ; [facility] Arthralgia of the left knee/patella/tibia/fibula INJECTION with INES PHILLIPS MD 08/22/2022 Last Documented On 3 2:06PM ; [facility] Arthralgia of the right knee/patella/tibia/fibula INJECTION with INES PHILLIPS MD 08/22/2022 Last Documented On 3 2:06PM ; [facility] Osteoarthritis of both knees INJECTION with MYKEL PHILLIPS MD 08/22/2022 Last Documented On 3 2:06PM ; [facility] Arthralgia of the left knee/patella/tibia/fibula PAIN MANAGEMENT FOLLOW UP with KARLA L FRANK ANP-BC 07/26/2022 Last Documented On 3 1:48PM ; [facility] Arthralgia of the right knee/patella/tibia/fibula PAIN MANAGEMENT FOLLOW UP with KARLA L FRANK ANP-BC 07/26/2022 Last Documented On 3 1:48PM ; [facility] Cervical radiculopathy PAIN MANAGEMENT F OLLOW UP with KARLA L FRANK ANP-BC 07/26/2022 Last Documented On 3 1:48PM ; [facility] Cervical spondylosis with radiculopathy PAIN MANAGEMENT FOLLOW UP with KARLA L FRAKN ANP-BC 07/26/2022 Last Documented On 3 1:48PM ; [facility] Chronic pain syndrome PAIN MANAGEMENT FO LLOW UP with KARLA L FRANK ANP-BC 07/26/2022 Last Documented On 3 1:48PM ; [facility] DORSALGIA PAIN MANAGEMENT FOLLOW UP with T JUSTO L FRANK ANP-BC 07/26/2022 Last Documented On 3 1:48PM ; [facility] Myalgia PAIN MANAGEMENT FOLLOW UP with T JUSTO L FRANK ANP-BC 07/26/2022 Last Documented On 3 1:48PM ; [facility] Osteoarthritis of both knees PAIN MANAGE MENT FOLLOW UP with KARLA L FRANK ANP-BC 07/26/2022 Last Documented On 3 1:48PM ; [facility] Osteoarthritis of left knee PAIN MANAGEM ENT FOLLOW UP with KARLA L FRANK ANP-BC 07/26/2022 Last Documented On 3 1:48PM ; [facility] Osteoarthritis of right knee PAIN MANAGE MENT FOLLOW UP with KARLA L FRANK ANP-BC 07/26/2022 Last Documented On 3 1:48PM ; [facility] Sacroiliitis PAIN MANAGEMENT FOLLOW UP with T JUSTO L FRANK ANP-BC 07/26/2022 Last Documented On 3 1:48PM ; [facility] Arthralgia of the left knee/patella/tibia/fibula PAIN MANAGEMENT FOLLOW UP with KARLA L RFANK ANP-BC 04/17/2022 Last Documented On 2 2:11PM ; [facility] Arthralgia of the right knee/patella/tibia/fibula PAIN MANAGEMENT FOLLOW UP with KARLA L FRANK ANP-BC 04/17/2022 Last Documented On 2 2:11PM ; [facility] Cervical radiculopathy PAIN MANAGEMENT F OLLOW UP with KARLA L FRANK ANP-BC 04/17/2022 Last Documented On 2 2:11PM ; [facility] Cervical spondylosis with radiculopathy PAIN MANAGEMENT FOLLOW UP with KARLA L FRANK ANP-BC 04/17/2022 Last Documented On 2 2:11PM ; [facility] Chronic pain syndrome PAIN MANAGEMENT FO LLOW UP with KARLA L FRANK ANP-BC 04/17/2022 Last Documented On 2 2:11PM ; [facility] DORSALGIA PAIN MANAGEMENT FOLLOW UP with T JUSTO L FRANK ANP-BC 04/17/2022 Last Documented On 2 2:11PM ; [facility] Myalgia PAIN MANAGEMENT FOLLOW UP with T JUSTO L FRANK ANP-BC 04/17/2022 Last Documented On 2 2:11PM ; [facility] Sacroiliitis PAIN MANAGEMENT FOLLOW UP with T JUSTO L FRANK ANP-BC 04/17/2022 Last Documented On 2 2:11PM ; [facility] Arthralgia of the right knee/patella/tibia/fibula PAIN MANAGEMENT FOLLOW UP with KARLA L FRANK ANP-BC 02/27/2022 Last Documented On 2 1:55PM ; [facility] Cervical radiculopathy PAIN MANAGEMENT F OLLOW UP with KARLA L FRANK ANP-BC 02/27/2022 Last Documented On 2 1:55PM ; [facility] Cervical spondylosis with radiculopathy PAIN MANAGEMENT FOLLOW UP with KARLA L FRANK ANP-BC 02/27/2022 Last Documented On 2 1:55PM ; [facility] Chronic pain syndrome PAIN MANAGEMENT FO LLOW UP with KARLA L FRANK ANP-BC 02/27/2022 Last Documented On 2 1:55PM ; [facility] DORSALGIA PAIN MANAGEMENT FOLLOW UP with T JUSTO L FRANK ANP-BC 02/27/2022 Last Documented On 2 1:55PM ; [facility] Myalgia PAIN MANAGEMENT FOLLOW UP with T JUSTO L FRANK ANP-BC 02/27/2022 Last Documented On 2 1:55PM ; [facility] Sacroiliitis PAIN MANAGEMENT FOLLOW UP with T JUSTO L FRANK ANP-BC 02/27/2022 Last Documented On 2 1:55PM ; [facility] Arthralgia of left shoulder region PAIN MANAGEMENT FOLLOW UP with KARLA L FRANK ANP-BC 11/19/2021 Last Documented On 2 3:56PM ; [facility] Arthralgia of the right knee/patella/tibia/fibula PAIN MANAGEMENT FOLLOW UP with KARLA L FRANK ANP-BC 11/19/2021 Last Documented On 2 3:56PM ; [facility] Cervical radiculopathy PAIN MANAGEMENT F OLLOW UP with KARLA L FRANK ANP-BC 11/19/2021 Last Documented On 2 3:56PM ; [facility] Cervical spondylosis with radiculopathy PAIN MANAGEMENT FOLLOW UP with KARLA L FRANK ANP-BC 11/19/2021 Last Documented On 2 3:56PM ; [facility] Chronic pain syndrome PAIN MANAGEMENT FO LLOW UP with KARLA L FRANK ANP-BC 11/19/2021 Last Documented On 2 3:56PM ; [facility] Arthralgia of left shoulder region PAIN MANAGEMENT FOLLOW UP with KARLA L FRANK ANP- 10/11/2020 Last Documented On 1 3:52PM ; [facility] Arthralgia of the right knee/patella/tibia/fibula PAIN MANAGEMENT FOLLOW UP with KARLA L FRANK ANP-BC 10/11/2020 Last Documented On 1 3:52PM ; [facility] Chronic pain syndrome PAIN MANAGEMENT FO LLOW UP with KARLA L FRANK ANP-BC 10/11/2020 Last Documented On 1 3:52PM ; [facility] Cervical spine stenosis PAIN MANAGEMENT FOLLOW UP with KARLA L FRANK ANP-BC 07/20/2019 Last Documented On 0 10:39AM ; [facility] Chronic pain syndrome PAIN MANAGEMENT FO LLOW UP with KARLA L FRANK ANP-BC 07/20/2019 Last Documented On 0 10:39AM ; [facility] 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 PAIN M ANAGEMENT FOLLOW UP with KARLA L FRANK ANP-BC 07/20/2019 Last Documented On 0 10:39AM ; [facility] Myalgia PAIN MANAGEMENT FOLLOW UP with T JUSTO L FRANK ANP-BC 07/20/2019 Last Documented On 0 10:39AM ; [facility] Spondylosis with radiculopathy PAIN CARMEN GEMENT FOLLOW UP with KARLA L FRANK ANP- 07/20/2019 Last Documented On 0 10:39AM ; [facility] Cervical spine stenosis PAIN MANAGEMENT FOLLOW UP with KARLA L FRANK ANP- 04/13/2019 Last Documented On 9 10:36AM ; [facility] Chronic pain syndrome PAIN MANAGEMENT FO LLOW UP with KARLA L FRANK ANP-BC 04/13/2019 Last Documented On 9 10:36AM ; [facility] nursing home use of opiate analgesic PAIN M ANAGEMENT FOLLOW UP with KARLA L FRANK ANP-BC 04/13/2019 Last Documented On 9 10:36AM ; [facility] Myalgia PAIN MANAGEMENT FOLLOW UP with T JUSTO L FRANK ANP- 04/13/2019 Last Documented On 9 10:36AM ; [facility] Spondylosis with radiculopathy PAIN CARMEN GEMENT FOLLOW UP with KARLA L FRANK ANP-BC 04/13/2019 Last Documented On 9 10:36AM ; [facility] Cervical radiculopathy PAIN MANAGEMENT F OLLOW UP with KARLA L FRANK ANP-BC 03/12/2019 Last Documented On 9 10:11AM ; [facility] Cervical spine stenosis PAIN MANAGEMENT FOLLOW UP with KARLA L FRANK ANP-BC 03/12/2019 Last Documented On 9 10:11AM ; [facility] Chronic pain syndrome PAIN MANAGEMENT FO LLOW UP with KARLA L FRANK ANP-BC 03/12/2019 Last Documented On 9 10:11AM ; [facility] 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 PAIN M ANAGEMENT FOLLOW UP with KARLA L FRANK ANP-BC 03/12/2019 Last Documented On 9 10:11AM ; [facility] Myalgia PAIN MANAGEMENT FOLLOW UP with T JUSTO L FRANK ANP-BC 03/12/2019 Last Documented On 9 10:11AM ; [facility] Cervical radiculopathy PAIN MANAGEMENT F OLLOW UP with KARLA L FRANK ANP-BC 01/06/2019 Last Documented On 9 9:29AM ; [facility] Cervical spine stenosis PAIN MANAGEMENT FOLLOW UP with KARLA L FRANK ANP-BC 01/06/2019 Last Documented On 9 9:29AM ; [facility] Cervical spondylosis PAIN MANAGEMENT FOL LOW UP with KARLA L FRANK ANP-BC 01/06/2019 Last Documented On 9 9:29AM ; [facility] Chronic pain syndrome PAIN MANAGEMENT FO LLOW UP with KARLA L FRANK ANP-BC 01/06/2019 Last Documented On 9 9:29AM ; [facility] nursing home use of opiate analgesic PAIN M ANAGEMENT FOLLOW UP with KARLA L FRANK ANP-BC 01/06/2019 Last Documented On 9 9:29AM ; [facility] Myalgia PAIN MANAGEMENT FOLLOW UP with T JUSTO L FRANK ANP- 01/06/2019 Last Documented On 9 9:29AM ; [facility] Cervical radiculopathy PAIN MANAGEMENT F OLLOW UP with KARLA L FRANK ANP- 09/23/2018 Last Documented On 9 8:34AM ; [facility] Cervical spine stenosis PAIN MANAGEMENT FOLLOW UP with KARLA L FRANK [facility] [facility] 09/23/2018 Last Documented On 9 8:34AM ; [facility] Cervical spondylosis PAIN MANAGEMENT FOL LOW UP with KARLA L FRANK ANP- 09/23/2018 Last Documented On 9 8:34AM ; [facility] Chronic pain syndrome PAIN MANAGEMENT FO LLOW UP with KARLA L FRANK [facility] 09/23/2018 Last Documented On 9 8:34AM ; [facility] 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 PAIN M ANAGEMENT FOLLOW UP with KARLA L FRANK [facility] 09/23/2018 Last Documented On 9 8:34AM ; [facility] Myalgia PAIN MANAGEMENT FOLLOW UP with T JUSTO L FRANK [facility] 09/23/2018 Last Documented On 9 8:34AM ; [facility] Cervical radiculopathy PAIN MANAGEMENT F OLLOW UP with KARLA L FRANK [facility] 07/24/2018 Last Documented On 9 8:34AM ; [facility] Cervical spine stenosis PAIN MANAGEMENT FOLLOW UP with KARLA L FRANK [facility] 07/24/2018 Last Documented On 9 8:34AM ; [facility] Cervical spondylosis PAIN MANAGEMENT FOL LOW UP with KARLA L FRANK [facility]- 07/24/2018 Last Documented On 9 8:34AM ; [facility] Chronic pain syndrome PAIN MANAGEMENT FO LLOW UP with KARLA L FRANK [facility] 07/24/2018 Last Documented On 9 8:34AM ; [facility] 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 PAIN M ANAGEMENT FOLLOW UP with KARLA L FRANK ANP-BC 07/24/2018 Last Documented On 9 8:34AM ; [facility] Myalgia PAIN MANAGEMENT FOLLOW UP with T JUSTO L FRANK ANP-BC 07/24/2018 Last Documented On 9 8:34AM ; [facility] Cervical radiculopathy PAIN MANAGEMENT F OLLOW UP with KARLA L FRANK ANP-BC 06/26/2018 Last Documented On 9 8:35AM ; [facility] Cervical spine stenosis PAIN MANAGEMENT FOLLOW UP with KARLA L FRANK ANP-BC 06/26/2018 Last Documented On 9 8:35AM ; [facility] Cervical spondylosis PAIN MANAGEMENT FOL LOW UP with KARLA L FRANK ANP-BC 06/26/2018 Last Documented On 9 8:35AM ; [facility] Chronic pain syndrome PAIN MANAGEMENT FO LLOW UP with KARLA L FRANK ANP-BC 06/26/2018 Last Documented On 9 8:35AM ; [facility] 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 PAIN M ANAGEMENT FOLLOW UP with KARLA L FRANK ANP-BC 06/26/2018 Last Documented On 9 8:35AM ; [facility] Myalgia PAIN MANAGEMENT FOLLOW UP with T JUSTO L FRANK ANP-BC 06/26/2018 Last Documented On 9 8:35AM ; [facility] Cervical radiculopathy PAIN MANAGEMENT F OLLOW UP with KARLA L FRANK ANP-BC 05/22/2018 Last Documented On 9 8:55AM ; [facility] Cervical spine stenosis PAIN MANAGEMENT FOLLOW UP with KARLA L FRANK ANP-BC 05/22/2018 Last Documented On 9 8:55AM ; [facility] Cervical spondylosis PAIN MANAGEMENT FOL LOW UP with KARLA L FRANK ANP-BC 05/22/2018 Last Documented On 9 8:55AM ; [facility] Chronic pain syndrome PAIN MANAGEMENT FO LLOW UP with KARLA L FRANK ANP-BC 05/22/2018 Last Documented On 9 8:55AM ; [facility] Localized lumbar osteoarthritis PAIN MAN AGEMENT FOLLOW UP with KARLA Mary VILLALOBOSS ANP-BC 05/22/2018 Last Documented On 9 8:55AM ; [facility] nursing home use of opiate analgesic PAIN M ANAGEMENT FOLLOW UP with KARLA L FRANK ANP-BC 05/22/2018 Last Documented On 9 8:55AM ; [facility] Myalgia PAIN MANAGEMENT FOLLOW UP with T JUSTO Mary VILLALOBOSS ANP-BC 05/22/2018 Last Documented On 9 8:55AM ; [facility] Sacroiliitis PAIN MANAGEMENT FOLLOW UP with T JUSTO L FRANK ANP-BC 05/22/2018 Last Documented On 9 8:55AM ; [facility] Cervical radiculopathy PAIN MANAGEMENT N EW CONSULT with KARLA Mary FRANK [facility] 01/27/2018 Last Documented On 8 9:00AM ; [facility] Cervical spine stenosis PAIN MANAGEMENT NEW CONSULT with KARLA L FRANK ANP-BC 01/27/2018 Last Documented On 8 9:00AM ; [facility] Cervical spondylosis PAIN MANAGEMENT NEW CONSULT with KARLA L FRANK ANP-BC 01/27/2018 Last Documented On 8 9:00AM ; [facility] Chronic pain syndrome PAIN MANAGEMENT NE W CONSULT with KARLA Mary FRANK ANP- 01/27/2018 Last Documented On 8 9:00AM ; [facility] Localized lumbar osteoarthritis PAIN MAN AGEMENT NEW CONSULT with KARLA L FRANK ANP-BC 01/27/2018 Last Documented On 8 9:00AM ; [facility] nursing home use of opiate analgesic PAIN M ANAGEMENT NEW CONSULT with KARLA L FRANK ANP-BC 01/27/2018 Last Documented On 8 9:00AM ; [facility] Myalgia PAIN MANAGEMENT NEW CONSULT with KARLA L FRANK ANP-BC 01/27/2018 Last Documented On 8 9:00AM ; [facility] Sacroiliitis PAIN MANAGEMENT NEW CONSULT with KARLA L FRANK [facility] 01/27/2018 Last Documented On 8 9:00AM ; [facility] Instructions Includes: Instructions for all patient encounters Instructions to patient Intervention and counseling on cessation of tobacco use : Patient recieved smoking cessation handout Last Documented On 4 1:05PM ; [facility] Intervention and counseling on cessation of tobacco use : Patient recieved smoking cessation handout Last Documented On 4 1:22PM ; [facility] Intervention and counseling on cessation of tobacco use : Patient recieved smoking cessation handout Last Documented On 3 12:47PM ; [facility] Intervention and counseling on cessation of tobacco use : Patient recieved smoking cessation handout Last Documented On 2 1:36PM ; [facility] Intervention and counseling on cessation of tobacco use : Patient recieved smoking cessation handout Last Documented On 2 1:15PM ; [facility] Intervention and counseling on cessation of tobacco use : Patient recieved smoking cessation handout Last Documented On 2 2:27PM ; [facility] Intervention and counseling on cessation of tobacco use : Patient recieved smoking cessation handout Last Documented On 1 2:51PM ; [facility] Intervention and counseling on cessation of tobacco use : Patient recieved smoking cessation handout Last Documented On 0 10:13AM ; [facility] Intervention and counseling on cessation of tobacco use : Patient recieved smoking cessation handout Last Documented On 9 9:39AM ; [facility] Education and Decision Aids were provided during visit for: Pill Count: eight HYDROCODON E Last Documented On 4 1:16PM ; [facility] Pill Count: twelve HYDROCODO NE Last Documented On 4 1:23PM ; [facility] Pill Count: five HYDROCODONE Last Documented On 3 11:12AM ; [facility] Pill Count: 42 HYDROCODONE Last Documented On 3 3:08PM ; [facility] Pill Count: three HYDROCODON E Last Documented On 3 1:33PM ; [facility] Pill Count: five HYDROCODONE Last Documented On 3 1:29PM ; [facility] Pill Count: 65 Appropriate Last Documented On 0 10:35AM ; [facility] Pill Count: 91.5 Appropriate Last Documented On 9 10:33AM ; [facility] Pill Count 67 Appropriate Last Documented On 9 10:05AM ; [facility] Pill Count 67 Appropriate Last Documented On 9 9:26AM ; [facility] Medical Equipment - Implanted Devices Includes: Current and historical Devices No Medical Equipment Recorded Medications Includes: Current and historical Medications Current Medications (continue as prescribed) Pregabalin [...] On 4 4:00PM By DWIGHT JUDD ; [facility] Diclofenac Sodium 50 MG Oral Tablet Delayed Release 09/04/2023 Provider: TRACY MILES-HAILE Diagnosis: 1 TABLET BY MOUTH EVERY 6-8 HOURS/MAX 3 PER DAY Last Documented On 4 1:32PM By DWIGHT JUDD ; [facility] Labetalol HCl 200 MG Oral Tablet 06/27/2023 Provider : SHLOMO JUDD Diagnosis: Last Documented On 07/16/2023 1:20PM By Nia PEARSON ; [facility] amLODIPine Besylate 10 MG Oral Tablet 04/29/2023 Pro vider: IDA ZAMAN PA-C Diagnosis: Last Documented On 3 11:08AM By Nia PEARSON ; [facility] Symbicort 80-4.5 MCG/ACT Inhalation Aerosol 04/24/2023 Provider: Diagnosis: Last Documented On 3 11:11AM By Nia PEARSON ; [facility] Past Medications on file HYDROcodone-Acetaminophen 7. 5-325 MG Oral Tablet 09/16/2023 - 10/17/2023 Provider: KARLA CUEVAS Diagnosis: Unilateral prima ry osteoarthritis, right knee 1 po q 6-8 hours/max 3 per day Last Documented On 4 3:57PM By DWIGHT KIRK [facility] ; [facility] HYDROcodone-Acetaminophen 7. 5-325 MG Oral Tablet 08/18/2023 - 09/16/2023 Provider: KARLA CUEVAS Diagnosis: Unilateral prima ry osteoarthritis, right knee 1 po q 6-8 hours/max 3 per daystart 08/18 Last Documented On 4 1:32PM By KARLA CUEVAS ; [facility] Pregabalin 150 MG Oral Capsule 07/28/2023 - 10/28/2023 Provider: KARLA CUEVAS Diagnosis: 1 CAPSULE TWO TIMES A DAY Last Documented On 4 4:00PM By DWIGHT KIRK [facility] ; [facility] Pregabalin 150 MG Oral Capsule 07/28/2023 - 07/28/2023 Provider: KARLA CUEVAS Diagnosis: 1 CAPSULE TWO TIMES A DAY Last Documented On 4 3:17PM By KARLA CUEVAS ; [facility] HYDROcodone-Acetaminophen 7. 5-325 MG Oral Tablet 07/16/2023 - 08/18/2023 Provider: KARLA CUEVAS Diagnosis: Unilateral prima ry osteoarthritis, right knee 1 po q 6-8 hours/max 3 per day Last Documented On 4 9:50AM By KARLA CUEVAS ; [facility] HYDROcodone-Acetaminophen 5- 325 MG Oral Tablet 07/11/2023 - 09/16/2023 Provider: KARLA CUEVAS Diagnosis: Bilateral primar y osteoarthritis of knee 1 po q 6-8 hours prn/max 3 per day Last Documented On 09/16/2023 1:15PM By Nia PEARSON ; [facility] HYDROcodone-Acetaminophen 5- 325 MG Oral Tablet 06/10/2023 - 07/11/2023 Provider: KARLA CUEVAS Diagnosis: Bilateral primar y osteoarthritis of knee 1 po q 6-8 hours prn/max 3 per daystart 06/12 Last Documented On 4 11:22AM By KARLA CUEVAS ; [facility] Diclofenac Sodium 50 MG Oral Tablet Delayed Release 06/03/2023 - 09/04/2023 Provider: KARLA CUEVAS Diagnosis: 1 TABLET BY MOUTH EVERY 6-8 HOURS/MAX 3 PER DAY Last Documented On 4 1:25PM By DWIGHT KIRK [facility] ; [facility] Pregabalin 150 MG Oral Capsule 05/23/2023 - 09/16/2023 Provider: KARLA CUEVAS Diagnosis: Other spondylosi s with radiculopathy, cervical region 1 CAPSULE TWO TIMES A DAY Last Documented On 09/16/2023 1:15PM By Nia PEARSON ; [facility] HYDROcodone-Acetaminophen 5- 325 MG Oral Tablet 05/09/2023 - 06/10/2023 Provider: KARLA CUEVAS Diagnosis: Bilateral primar y osteoarthritis of knee 1 po q 6-8 hours prn/max 3 per daystart 05/11 Last Documented On 4 11:07AM By KARLA COLE ; [facility] Phentermine HCl 15 MG Oral Capsule 05/09/2023 - 2023 Provider: Diagnosis: Last Documented On 07/16/2023 1:21PM By Nia PEARSON ; [facility] Diclofenac Sodium 50 MG Oral Tablet Delayed Release 05/01/2023 - 06/03/2023 Provider: DWIGHT MOURACatie EDUCATIONAL ASSISTANT TEACHERIsaias Diagnosis: 1 TABLET BY MOUTH EVERY 6-8 HOURS/MAX 3 PER DAY Last Documented On 4 11:35AM By KARLA COLE ; [facility] Labetalol HCl 100 MG Oral Tablet 04/29/2023 - 07/16/2023 Provider: IDA ZAMAN PA-C Diagnosis: Last Documented On 07/16/2023 1:20PM By Nia PEARSON ; [facility] HYDROcodone-Acetaminophen 5- 325 MG Oral Tablet 04/09/2023 - 05/09/2023 Provider: KARLA CUEVAS Diagnosis: Pain in right knee 1 po bid prn/ max 2 per day Last Documented On 3 11:26AM By KARLA CUEVAS ; [facility] Diclofenac Sodium 50 MG Oral Tablet Delayed Release 04/01/2023 - 05/01/2023 Provider: KARLA CUEVAS Diagnosis: 1 tablet po q 6-8 hours/max 3 per day Last Documented On 3 9:27AM By DWIGHT JUDD ; [facility] Diclofenac Sodium 50 MG Oral Tablet Delayed Release 03/31/2023 - 05/09/2023 Provider: DWIGHT KIRK APRN-FPADUTCH Diagnosis: Other spondylosi s with radiculopathy, cervical region 1 BY MOUTH TWICE A DAY NE EDED WITH A MEAL Last Documented On 3 11:11AM By Nia PEARSON ; [facility] HYDROcodone-Acetaminophen 5- 325 MG Oral Tablet 03/12/2023 - 04/09/2023 Provider: KARLA CUEVAS Diagnosis: Pain in right knee 1 po bid prn/ max 2 per daystart 03/13 Last Documented On 3 1:15PM By KARLA CUEVAS ; [facility] Diclofenac Sodium 50 MG Oral Tablet Delayed Release 03/11/2023 - 03/31/2023 Provider: KARLA CUEVAS Diagnosis: Other spondylosi s with radiculopathy, cervical region 1 BY MOUTH TWICE A DAY NEEDED WITH A MEAL Last Documented On 3 4:44PM By DWIGHT JUDD ; [facility] Amoxicillin-Pot Clavulanate 875-125 MG Oral Tablet 02/18/2023 - 05/09/2023 Provider: Diagnosis: Last Documented On 3 11:10AM By Nia PEARSON ; [facility] Pregabalin 150 MG Oral Capsule 02/13/2023 - 05/23/2023 Provider: KARLA CUEVAS Diagnosis: Other spondylosi s with radiculopathy, cervical region 1 CAPSULE TWO TIMES A DAY Last Documented On 4 12:01PM By KARLA CUEVAS ; [facility] HYDROcodone-Acetaminophen 5- 325 MG Oral Tablet 02/07/2023 - 03/12/2023 Provider: KARLA CUEVAS Diagnosis: Pain in right knee 1 po bid prn/ max 2 per day Last Documented On 3 3:18PM By KARLA CUEVAS ; [facility] Pregabalin 150 MG Oral Capsule 01/14/2023 - 02/13/2023 Provider: DUTCH GRIFFIN Diagnosis: Other spondylosi s with radiculopathy, cervical region 1 CAPSULE TWO TIMES A DAY Last Documented On 3 3:12PM By KARLA CUEVAS ; [facility] HYDROcodone-Acetaminophen 5- 325 MG Oral Tablet 01/10/2023 - 02/06/2023 Provider: DUTCH GRIFFIN Diagnosis: Pain in right knee 1 po bid prn/ max 2 per day Last Documented On 3 9:45AM By KARLA CUEVAS ; [facility] HYDROcodone-Acetaminophen 5- 325 MG Oral Tablet 12/12/2022 - 01/10/2023 Provider: KARLA CUEVAS Diagnosis: Pain in right knee 1 po bid prn/ max 2 per day Last Documented On 3 4:27PM By DWIGHT KIRK EDUCATIONAL ASSISTANT TEACHERANIBAL ; [facility] HYDROcodone-Acetaminophen 5- 325 MG Oral Tablet 2022 - 12/12/2022 Provider: KARLA CUEVAS Diagnosis: Pain in right knee 1 po bid prn/ max 2 per day Last Documented On 3 1:55PM By KARLA CUEVAS ; [facility] Albuterol Sulfate HFA 108 (9 0 Base) MCG/ACT Inhalation Aerosol Solution 11/20/2022 - 05/09/2023 Provider: SHLOMO LOUISP- BC Diagnosis: Last Documented On 3 11:11AM By Nia PEARSON ; [facility] Losartan Potassium 100 MG Or al Tablet 11/20/2022 - 05/09/2023 Provider: SHLOMO LOUISP- BC Diagnosis: Last Documented On 3 11:08AM By Nia PEARSON ; [facility] HYDROcodone-Acetaminophen 5- 325 MG Oral Tablet 10/31/2022 - 2022 Provider: MISSY GRIFFINP-BC Diagnosis: Pain in right knee 1 po bid prn/ max 2 per day Last Documented On 3 4:54PM By KARLA CUEVAS ; [facility] Diclofenac Sodium 50 MG Oral Tablet Delayed Release 10/30/2022 - 03/11/2023 Provider: MISSY GRIFFINP-BC Diagnosis: Other spondylosi s with radiculopathy, cervical region 1 BY MOUTH TWICE A DAY NE EDED WITH A MEAL Last Documented On 3 8:09AM By KARLA CUEVAS ; [facility] HYDROcodone-Acetaminophen 5- 325 MG Oral Tablet 10/02/2022 - 10/30/2022 Provider: KARLA CUEVAS Diagnosis: Pain in right knee 1 po bid prn/ max 2 per day Last Documented On 3 11:39AM By DWIGHT MOLINA-HAILE ; [facility] HYDROcodone-Acetaminophen 5- 325 MG Oral Tablet 09/12/2022 - 10/01/2022 Provider: KARLA CUEVAS Diagnosis: Pain in right knee 1 po bid prn/ max 2 per day Last Documented On 3 3:15PM By KARLA CUEVAS ; [facility] HYDROcodone-Acetaminophen 5- 325 MG Oral Tablet 08/29/2022 - 09/12/2022 Provider: KARLA CUEVAS Diagnosis: Pain in right knee 1 po bid prn/ max 2 per day Last Documented On 3 2:02PM By KARLA COLE ; [facility] Diclofenac Sodium 50 MG Oral Tablet Delayed Release 08/29/2022 - 10/30/2022 Provider: KARLA CUEVAS Diagnosis: Other spondylosi s with radiculopathy, cervical region 1 po bid prn with a meal Last Documented On 3 2:36PM By DWIGHT LOUISPIsaias ; [facility] Pregabalin 150 MG Oral Capsule 08/29/2022 - 01/14/2023 Provider: KARLA CUEVAS Diagnosis: Other spondylosi s with radiculopathy, cervical region 1 CAPSULE TWO TIMES A DAY Last Documented On 3 12:04PM By DWIGHT GOOD ; [facility] HYDROcodone-Acetaminophen 5- 325 MG Oral Tablet 08/16/2022 - 08/29/2022 Provider: KARLA CUEVAS Diagnosis: Pain in right knee 1 po bid prn/ max 2 per day Last Documented On 3 12:42PM By KARLA CUEVAS ; [facility] Pregabalin 150 MG Oral Capsule 07/31/2022 - 08/29/2022 Provider: KARLA CUEVAS Diagnosis: Other spondylosi s with radiculopathy, cervical region 1 CAPSULE TWO TIMES A DAY Last Documented On 3 12:02PM By KARLA CUEVAS ; [facility] Diclofenac Sodium 50 MG Oral Tablet Delayed Release 07/31/2022 - 08/29/2022 Provider: KARLA CUEVAS Diagnosis: Other spondylosi s with radiculopathy, cervical region 1 po bid prn with a meal Last Documented On 3 12:01PM By KARLA CUEVAS ; [facility] HYDROcodone-Acetaminophen 5- 325 MG Oral Tablet 07/31/2022 - 08/15/2022 Provider: KARLA CUEVAS Diagnosis: Pain in right knee 1 po bid prn/ max 2 per day Last Documented On 3 3:29PM By KARLA CUEVAS ; [facility] HYDROcodone-Acetaminophen 5- 325 MG Oral Tablet 07/26/2022 - 07/31/2022 Provider: KARLA CUEVAS Diagnosis: Pain in right knee 1 po bid prn Last Documented On 3 3:42PM By KARLA CUEVAS ; [facility] Diclofenac Sodium 50 MG Oral Tablet Delayed Release 06/28/2022 - 07/31/2022 Provider: DUTCH GRIFFIN Diagnosis: Other spondylosi s with radiculopathy, cervical region 1 po bid prn with a meal Last Documented On 3 4:00PM By KARLA CUEVAS ; [facility] Pregabalin 150 MG Oral Capsule 06/28/2022 - 07/31/2022 Provider: DUTCH GRIFFIN Diagnosis: Other spondylosi s with radiculopathy, cervical region 1 CAPSULE TWO TIMES A DAY Last Documented On 3 4:00PM By KARLA CUEVAS ; [facility] Diclofenac Sodium 50 MG Oral Tablet Delayed Release 05/31/2022 - 06/28/2022 Provider: DUTCH GRIFFIN Diagnosis: Other spondylosi s with radiculopathy, cervical region 1 po bid prn with a meal Last Documented On 3 8:59AM By DWIGHT JUDD ; [facility] Pregabalin 150 MG Oral Capsule 05/31/2022 - 06/28/2022 Provider: DUTCH GRIFFIN Diagnosis: Other spondylosi s with radiculopathy, cervical region 1 CAPSULE TWO TIMES A DAY Last Documented On 3 8:57AM By DWIGHT JUDD ; [facility] Diclofenac Sodium 50 MG Oral Tablet Delayed Release 04/03/2022 - 05/31/2022 Provider: KARLA CUEVAS Diagnosis: Other spondylosi s with radiculopathy, cervical region 1 po bid prn Last Documented On 3 12:44PM By DWIGHT LOUISPIsaias ; [facility] Pregabalin 150 MG Oral Capsule 02/27/2022 - 05/31/2022 Provider: KARLA CUEVAS Diagnosis: Other spondylosi s with radiculopathy, cervical region 1 CAPSULE TWO TIMES A DAYafter titration Last Documented On 3 12:42PM [facility] ; [facility] Diclofenac Sodium 50 MG Oral Tablet Delayed Release 12/25/2021 - 04/03/2022 Provider: KARLA CUEVAS Diagnosis: Other spondylosi s with radiculopathy, cervical region 1 po bid prn Last Documented On 2 4:46PM By KARLA CUEVAS ; [facility] Pregabalin 150 MG Oral Capsule 11/19/2021 - 02/27/2022 Provider: AKRLA CUEVAS Diagnosis: Other spondylosi s with radiculopathy, cervical region 1 CAPSULE TWO TIMES A DAYafter titration Last Documented On 2 1:45PM By KARLA CUEVAS ; [facility] Pregabalin 75 MG Oral Capsule 11/19/2021 - 04/17/2022 Provider: KARLA CUEVAS Diagnosis: Other spondylosi s with radiculopathy, cervical region 1 CAPSULE TWO TIMES A DAY Last Documented On 04/17/2022 1:43PM By Nia PEARSON ; [facility] Diclofenac Sodium 50 MG Oral Tablet Delayed Release 11/19/2021 - 12/25/2021 Provider: KARLA CUEVAS Diagnosis: Other spondylosi s with radiculopathy, cervical region 1 po bid prn Last Documented On 2 12:27PM By KARLA CUEVAS ; [facility] Celecoxib 100 MG Oral Capsule 10/11/2020 - 11/19/2021 Provider: KARLA CUEVAS Diagnosis: Pain in left renetta ulder 1 CAPSULE TWO TIMES A DAY Last Documented On 11/19/2021 3:01PM By Roxanne PEARSON ; [facility] HYDROcodone-Acetaminophen 10 -325 MG Oral Tablet 10/11/2019 - 10/11/2020 Provider: KARLA CUEVAS Diagnosis: Radiculopathy, cervical region 1 po q 6 hours prn30 day rx Last Documented On 1 2:51PM By Renetta PEARSON ; [facility] HYDROcodone-Acetaminophen 10 -325 MG Oral Tablet 09/02/2019 - 10/08/2019 Provider: KARLA CUEVAS Diagnosis: Radiculopathy, cervical region 1 po q 6 hours prn30 day rxt o fill 09/04/19fill when due Last Documented On 0 12:15PM By KARLA CUEVAS ; [facility] HYDROcodone-Acetaminophen 10 -325 MG Oral Tablet 08/06/2019 - 09/02/2019 Provider: KARLA CUEVAS Diagnosis: Radiculopathy, cervical region 1 po q 6 hours prn30 day rxfill when due Last Documented On 0 1:44PM By KARLA COLE ; [facility] Vitamin D2 50 MCG (1999 [place]) Oral Tablet 07/20/2019 - 0 10/11/2020 Provider: Diagnosis: Last Documented On 1 3:00PM By Renetta PEARSON ; [facility] Magnesium 500 MG Oral Tablet 07/20/2019 - 10/11/2020 P rovider: Diagnosis: Last Documented On 1 3:00PM By Renetta PEARSON ; [facility] HYDROcodone-Acetaminophen 10 -325 MG Oral Tablet 07/09/2019 - 08/06/2019 Provider: KARLA CUEVAS Diagnosis: Radiculopathy, cervical region 1 po q 6 hours prn30 day rx Last Documented On 0 1:05PM By KARLA CUEVAS ; [facility] HYDROcodone-Acetaminophen 10 -325 MG Oral Tablet 06/08/2019 - 07/08/2019 Provider: KARLA CUEVAS Diagnosis: Radiculopathy, cervical region 1 po q 6 hours prn Last Documented On 0 11:27AM By KARLA CUEVAS ; [facility] HYDROcodone-Acetaminophen 10 -325 MG Oral Tablet 05/07/2019 - 06/08/2019 Provider: KARLA CUEVAS Diagnosis: Radiculopathy, cervical region 1 po q 6 hours prn Last Documented On 0 4:22PM By KARLA CUEVAS ; [facility] Lyrica 150 MG Oral Capsule 04/13/2019 - 10/11/2020 Provider: KARLA CUEVAS Diagnosis: Other spondylosi s with radiculopathy, site unspecified 1 CAPSULE TWO TIMES A DAY Last Documented On 1 2:51PM By Renetta PEARSON ; [facility] HYDROcodone-Acetaminophen 10 -325 MG Oral Tablet 04/06/2019 - 05/07/2019 Provider: KARLA CUEVAS Diagnosis: Radiculopathy, cervical region 1 po q 6 hours prn Last Documented On 9 1:31PM By KARLA CUEVAS ; [facility] HYDROcodone-Acetaminophen 10 -325 MG Oral Tablet 03/12/2019 - 04/06/2019 Provider: KARLA CUEVAS Diagnosis: Radiculopathy, cervical region 1 po q 6 hours prn Last Documented On 9 1:05PM By KARLA CUEVAS ; [facility] HYDROcodone-Acetaminophen 10 -325 MG Oral Tablet 03/12/2019 - 03/12/2019 Provider: KARLA CUEVAS Diagnosis: Radiculopathy, cervical region 1 po q 6 hours prn Last Documented On 9 11:50AM By KARLA CUEVAS ; [facility] HYDROcodone-Acetaminophen 10 -325 MG Oral Tablet 02/26/2019 - 03/12/2019 Provider: KARLA CUEVAS Diagnosis: Radiculopathy, cervical region 1 po q 6 hours prnto fill 02/27/19 Last Documented On 9 10:10AM By KARLA CUEVAS ; [facility] HYDROcodone-Acetaminophen 10 -325 MG Oral Tablet 01/25/2019 - 02/24/2019 Provider: KARLA CUEVAS Diagnosis: Radiculopathy, cervical region 1 po q 6 hours prnto fill 01/28/19 Last Documented On 9 7:58AM By KARLA CUEVAS ; [facility] Lyrica 150MG Oral Capsule 12/29/2018 - 04/13/2019 Provider: KARLA CUEVAS Diagnosis: Radiculopathy, cervical region 1 CAPSULE TWO TIMES A DAY Last Documented On 9 10:04AM By KARLA CUEVAS ; [facility] HYDROcodone-Acetaminophen 10 -325MG Oral Tablet 12/23/2018 - 01/25/2019 Provider: KARLA CUEVAS Diagnosis: Radiculopathy, cervical region 1 po q 6 hours prnto fill 12/27/18 Last Documented On 9 9:17AM By KARLA CUEVAS ; [facility] HYDROcodone-Acetaminophen 10 -325MG Oral Tablet 11/25/2018 - 12/23/2018 Provider: KARLA CUEVAS Diagnosis: Radiculopathy, cervical region 1 po q 6 hours prnto fill 11/27/18 or after Last Documented On 9 3:37PM By KARLA CUEVAS ; [facility] Lyrica 150MG Oral Capsule 11/09/2018 - 12/29/2018 Provider: KARLA CUEVAS Diagnosis: Radiculopathy, cervical region 1 CAPSULE TWO TIMES A DAY Last Documented On 9 3:23PM By KARLA CUEVAS ; [facility] HYDROcodone-Acetaminophen 10 -325MG Oral Tablet 10/26/2018 - 11/25/2018 Provider: KARLA CUEVAS Diagnosis: Radiculopathy, cervical region 1 po q 6 hours prnto fill 10/28/18 Last Documented On 9 1:45PM By KARLA CUEVAS ; [facility] HYDROcodone-Acetaminophen 10 -325MG Oral Tablet 09/23/2018 - 10/26/2018 Provider: KARLA CUEVAS Diagnosis: Radiculopathy, cervical region 1 po q 6 hours prnto fill 09/27/18 Last Documented On 9 2:39PM By KARLA CUEVAS ; [facility] Potassium Chloride ER 20MEQ Oral Tablet Extended Release 09/23/2018 - 10/11/2020 Provider: Diagnosis: Last Documented On 1 3:00PM By Renetta PEARSON ; [facility] Furosemide 20MG Oral Tablet 09/23/2018 - 10/11/2020 Pr ovider: Diagnosis: Last Documented On 1 3:00PM By Renetta PEARSON ; [facility] Lyrica 150MG Oral Capsule 09/07/2018 - 11/09/2018 Provider: KARLA CUEVAS Diagnosis: Radiculopathy, cervical region 1 CAPSULE TWO TIMES A DAY Last Documented On 9 1:47PM By KARLA CUEVAS ; [facility] HYDROcodone-Acetaminophen 10 -325MG Oral Tablet 08/26/2018 - 09/23/2018 Provider: KARLA CUEVAS Diagnosis: Radiculopathy, cervical region 1 po q 6 hours prnto fill 08/28/18 Last Documented On 9 8:34AM By KARLA CUEVAS ; [facility] Lyrica 150MG Oral Capsule 07/24/2018 - 09/04/2018 Provider: KARLA CUEVAS Diagnosis: Radiculopathy, cervical region 1 CAPSULE TWO TIMES A DAY Last Documented On 9 8:22AM By KARLA CUEVAS ; [facility] HYDROcodone-Acetaminophen 10 -325MG Oral Tablet 07/24/2018 - 08/26/2018 Provider: KARLA CUEVAS Diagnosis: Radiculopathy, cervical region 1 po q 6 hours prnto fill 07/29/18 Last Documented On 9 11:13AM By KARLA CUEVAS ; [facility] Hydrocodone-Acetaminophen 10 -325MG Oral Tablet 06/30/2018 - 07/24/2018 Provider: KARLA CUEVAS Diagnosis: Chronic pain syndrome 1 po q 6 hours prn Last Documented On 9 8:32AM By KARLA CUEVAS ; [facility] BuPROPion HCl 100MG Oral Tablet 06/26/2018 - 9 Provider: Diagnosis: Last Documented On 03/12/2019 9:46AM By Barbara PEARSON ; [facility] Lyrica 75MG Oral Capsule 06/26/2018 - 03/12/2019 Provider: KARLA CUEVAS Diagnosis: Other spondylosi s, cervical region 1 CAPSULE TWO TIMES A DAY Last Documented On 03/12/2019 9:47AM By Barbara PEARSON ; [facility] Lyrica 150MG Oral Capsule 06/26/2018 - 07/24/2018 Provider: KARLA CUEVAS Diagnosis: Other spondylosi s, cervical region 1 CAPSULE TWO TIMES A DAY Last Documented On 9 8:32AM By KARLA CUEVAS ; [facility] Hydrocodone-Acetaminophen 10 -325MG Oral Tablet 05/22/2018 - 06/30/2018 Provider: KARLA CUEVAS Diagnosis: Chronic pain syndrome 1/2 to 1 every 6 hours as neededto fill 05/27/18 Last Documented On 9 10:56AM By KARLA CUEVAS ; [facility] Incruse Ellipta 62.5MCG/INH Inhalation Aerosol Powder Breath Activated 05/22/2018 - 09/12/2022 Provider: Diagnosis: Last Documented On 09/12/2022 1:28PM By Nia PEARSON ; [facility] Hydrocodone-Acetaminophen 10 -325MG Oral Tablet 05/13/2018 - 05/22/2018 Provider: KARLA CUEVAS Diagnosis: Chronic pain syndrome 1 every 6 hours as needed Last Documented On 9 8:55AM By KARLA CUEVAS ; [facility] Hydrocodone-Acetaminophen 10 -325MG Oral Tablet 04/13/2018 - 05/11/2018 Provider: KARLA CUEVAS Diagnosis: 1 every 6 hours as neededto fill 03/14/18 Last Documented On 9 12:08PM By KARLA CUEVAS ; [facility] Hydrocodone-Acetaminophen 10 -325MG Oral Tablet 03/13/2018 - 04/13/2018 Provider: KARLA CUEVAS Diagnosis: 1 every 6 hours as neededto fill 03/14/18 Last Documented On 8 3:11PM By KARLA CUEVAS ; [facility] Hydrocodone-Acetaminophen 10 -325MG Oral Tablet 02/11/2018 - 03/13/2018 Provider: KARLA CUEVAS Diagnosis: 1 every 6 hours as needed Last Documented On 8 11:21AM By KARLA CUEVAS ; [facility] Hydrocodone-Acetaminophen 10-325MG Oral Tablet 0 01/27/2018 - 02/10/2018 Provider: Diagnosis: Last Documented On 8 8:33AM By KARLA CUEVAS ; [facility] Escitalopram Oxalate 10MG Oral Tablet 01/27/2018 - 05/2018 Provider: Diagnosis: Last Documented On 03/12/2019 9:47AM By Barbara PEARSON ; [facility] Cyclobenzaprine HCl 10MG Oral Tablet 01/27/2018 - 06/2020 Provider: Diagnosis: 1 tab BID as needed Last Documented On 1 3:00PM By Renetta PEARSON ; [facility] HydroCHLOROthiazide 25MG Oral Tablet 01/27/2018 - 11/09 Provider: Diagnosis: Last Documented On 11/19/2021 3:01PM By Roxanne PEARSON ; [facility] Losartan Potassium 100MG Oral Tablet 01/27/2018 - 06/2020 Provider: Diagnosis: Last Documented On 1 3:00PM By Renetta PEARSON ; [facility] TraZODone HCl 50MG Oral Tablet 01/27/2018 - 04/17/2022 Provider: Diagnosis: Last Documented On 04/17/2022 1:45PM By Nia PEARSON ; [facility] Metoprolol Tartrate 25MG Oral Tablet 01/27/2018 - 06/0 06/2020 Provider: Diagnosis: Last Documented On 1 3:00PM By Renetta PEARSON ; [facility] Zolpidem Tartrate 10MG Oral Tablet 01/27/2018 - 2021 Provider: Diagnosis: Last Documented On 04/17/2022 1:46PM By Nia PEARSON ; [facility] Medications Administered Includes: Administered Medications in patient's chart Medications Administered Diagnosis Date Pro vider Euflexxa 20 MG/2ML IX SOSY 01/22/2023 W MARCELLA PHILLIPS MD administered by Dr. Phillips in left knee Last Documented On 3 1:49PM By Julita Clark RN ; [facility] Euflexxa 20 MG/2ML IX SOSY 01/22/2023 W MARCELLA PHILLIPS MD administered by Dr. Phillips in right knee Last Documented On 3 1:48PM By Julita Clark RN ; [facility] Sodium Chloride 0.9% IV SOLN 01/22/2023 INES PHILLIPS MD administered by Dr. Phillips for local Last Documented On 3 1:47PM By Julita Clark RN ; [facility] Xylocaine 1% IJ SOLN 01/22/2023 INES PHILLIPS MD administered by Dr. Phillips for local Last Documented On 3 1:46PM By Julita Clark RN ; [facility] Xylocaine 1% IJ SOLN 01/15/2023 INES PHILLIPS MD administered by Dr. Phillips for local Last Documented On 3 1:11PM By Julita Clark RN ; [facility] Euflexxa 20 MG/2ML IX SOSY 01/15/2023 W MARCELLA PHILLIPS MD administered by Dr. Phillips in left knee Last Documented On 3 1:16PM By Julita Clark RN ; [facility] Euflexxa 20 MG/2ML IX SOSY 01/15/2023 W MARCELLA PHILLIPS MD administered by Dr. Phillips in right knee Last Documented On 3 1:13PM By Julita Clark RN ; [facility] Sodium Chloride 0.9% IV KIT 01/15/2023 INES PHILLIPS MD administered by Dr. Phillips for local Last Documented On 3 1:12PM By Julita Clark RN ; [facility] Euflexxa 20 MG/2ML IX SOSY 01/08/2023 W MARCELLA PHILLIPS MD administered by Dr. Phillips in right knee Last Documented On 3 1:39PM By Julita Clark RN ; [facility] Sodium Chloride 0.9% IV SOLN 01/08/2023 INES PHILLIPS MD administered by Dr. Phillips for local Last Documented On 3 1:37PM By Julita Clark RN ; [facility] Xylocaine 1% IJ SOLN 01/08/2023 INES PHILLIPS MD administered by Dr. Phillips for local Last Documented On 3 1:35PM By Julita Clark RN ; [facility] Euflexxa 20 MG/2ML IX SOSY 01/08/2023 W MARCELLA PHILLIPS MD administered by Dr. Phillips in left knee Last Documented On 3 1:40PM By Julita Clark RN ; [facility] Xylocaine-MPF 1% IJ SOLN 08/22/2022 SELINA PHILLIPS MD Last Documented On 3 2:09PM By Evy Thompson RN ; [facility] Sodium Chloride (PF) 0.9% IJ SOLN 023 INES PHILLIPS MD Last Documented On 3 2:08PM By Evy Thompson RN ; [facility] dexAMETHasone Sod Phos (PF) 10 MG/ML IJ SOSY 08/22/2022 INES PHILLIPS MD Last Documented On 3 2:10PM By Evy Thompson RN ; [facility] Sensorcaine-MPF 0.5% IJ SOLN 08/22/2022 INES PHILLIPS MD Last Documented On 3 2:10PM By Evy Thompson RN ; [facility] Vital Signs Includes: Vital Signs from 08/06/2023 through 08/05/2024 Vital Name 09/16/2023 01:12P Blood Pressure Sitting R 120/60 Pulse Rate-Sitting (bpm) 79 Temp-Temporal 97 Height (in) 70 Weight (lb) 350 Body Mass Index 50.2 Body Surface Area 2.6 Pain Level 5 Oxygen Saturation (%) 93 Last Documented: On 09/16/2023 1:14PM ; [facility] Results Includes: Results from 08/06/2023 through 08/05/2024 No Results Recorded For Specified Dates History of Present Illness History of Present Illness not supported for this document type No History of Present Illness Recorded Social History Description Last Updated No consumption of alcohol 09/16/2023 Last Documented On 4 1:33PM ; [facility] Not using drugs 09/16/2023 Last Documented On 4 1:33PM ; [facility] Current smoker 07/16/2023 Last Documented On 4 2:02PM ; [facility] [PHQ-2] Patient Health Questionnaire 2 i tem total score: 6 (Scale: 0-6) 10/11/2020 Last Documented On 1 3:52PM ; [facility] Difficulty walking 10/11/2020 Last Documented On 1 3:52PM ; [facility] 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 10/11/2020 Last Documented On 1 3:52PM ; [facility] Cigarette smoking 1 1/2 packs daily 01/10 Last Documented On 8 9:00AM ; [facility] Single 01/27/2018 Last Documented On 8 9:00AM ; [facility] Smoking status : Current everyday smoker 01/27/2018 Last Documented On 8 9:00AM ; [facility] Procedures and Surgical History Includes: Procedures from 08/06/2023 through 08/05/2024 Procedures Code Diagnosis Performing Provider Service Location Service Date CLINIC VISIT T1015 Bilateral primar y osteoarthritis of knee, 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 09/16/2023 Last Documented On 4 1:33PM ; [facility] Has had no fall in the last 12 months. 0 09/16/2023 Last Documented On 4 1:33PM ; [facility] Moderate to severe pain 02/19/2023 Last Documented On 3 8:22AM ; [facility] Pain Clinic 02/19/2023 Last Documented On 3 8:22AM ; [facility] Please list all illnesses/co nditions you have been diagnosed with: High blood pressure 02/19/2023 Last Documented On 3 8:22AM ; [facility] Reviewed and Unchanged 07/20/2019 Last Documented On 0 10:39AM ; [facility] Surgery Adenoidectomy 01/27/2018 Last Documented On 8 9:00AM ; [facility] History of depression 01/27/2018 Last Documented On 8 9:00AM ; [facility] Exposure to dust 01/27/2018 Last Documented On 8 9:00AM ; [facility] Smoke exposure 01/27/2018 Last Documented On 8 9:00AM ; [facility] History of hypertension 01/27/2018 Last Documented On 8 9:00AM ; [facility] Family History Includes: Family History in patient's chart Description Last Updated Family medical history was unknown Unkno wn pt is adopted 01/27/2018 Last Documented On 8 9:00AM ; [facility] Review of Systems Review of Systems not supported for this document type No Review of Systems Recorded Mental Status No Mental Status Recorded Functional Status No Functional Status Recorded Physical Exam Physical Exam not supported for this document type No Physical Exam Recorded Allergies Includes: Active, inactive, and resolved Allergies No Known Allergies Encounters Includes: Encounters from 08/06/2023 through 08/05/2024 Encounter Provider Location Date Check-In Time Check-Out Time Diagnosis RX ISSUE/REFILL [facility] 09/16/2023 2:36PM 09/16/2023 11:59PM * PHONE CALL [facility]ARLA Hernandez [facility] 09/26[facility]19 24 09/16/2023 11:36AM 09/16/2023 11:59PM PAIN MANAGEMENT FOLLOW UP [facility] 09/16/19 1:04PM 1:35PM Chronic Pain Syndrome,Oste oarthritis Knees Both,Osteoart hritis Knee Right,Osteoar thritis Knee Left,Usp Use of Opiate Analgesic,Mellisa lgia , Other Site (M79.18) RX ISSUE/REFILL KARLA Hernandez [facility] 08/18/19 24 07/16/2023 9:45AM 07/16/2023 11:59PM Insurance Includes: Active Insurance Policies Plan Name Member ID Group # Subscriber Relationship Effect [place] Dates 1 - [facility] [id number] QUINN LAMBERT Self Clinical Notes Includes: Signed Clinical Notes starting from 05/31/2022 * Progress note Date Encounter Last Documented by 10/17/2023 RX ISSUE/REFILL Last documented on 10/17/2023; 3:57 PM, DWIGHT GOLDEN, [facility]; [facility] Chief Complaint Phone Call - [...] Reminders - Assess Tobacco Use satisfied 10/17/2023. * Progress note Date Encounter Last Documented by 09/26/2023 * PHONE CALL Last documented on 09/29/2023; 8:03 AM, KARLA GRIMM-; [facility] Chief Complaint Phone Call - Chief Concern: reason for call:pt states she saw her pcp yesterday and was told to stop taking the diclofenac because it's bad for her kidney function, she wanted you to be aware, pt would like your feedback phone: [phone] date/initials:09/26/23, kms. Past Medical/Surgical History Reported: Surgery [...] Reminders - Assess Tobacco Use satisfied 09/26/2023. 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 * Progress note Date Encounter Last Documented by 08/18/2023 RX ISSUE/REFILL Last documented on 08/18/2023; 9:50 AM, KARLA MARIE ANP-; [facility] Chief Complaint Phone Call - [...]
== END 2024-08-05 12:21 | disposition home or self-care (01) ==
LOC: CHSIMG 12:24
DX: N28.9 Disorder of kidney and ureter, unspecified (principal)
CPT/HCPCS: 76770

== ENCOUNTER 2024-10-01 12:20 | Outpatient (CLI) | payer OTHER, SELFPAY ==
--- NOTE | ~2024-10-01 | US_ITS ---
Renal-Bladder ultrasound Clinical History: Chronic kidney disease Technique: Real-time sonographic imaging of the kidneys and urinary bladder was performed. Findings: The right kidney measures 11.1 cm in length and the left kidney measures 10.9 cm. There is no hydronephrosis or renal calculus identified. Renal cortical echogenicity is within normal limits. No renal mass lesion is identified. The urinary bladder is moderately distended at the time of this exam. No intraluminal echoes are iden tified. No abnormal wall thickening is seen. Impression: Unremarkable ultrasound of the kidneys and urinary bladder. Reviewed, dictated and finalized at location M. Impression: Unremarkable ultrasound of the kidneys and urinary bladder.
--- OUTSIDE RECORDS SUMMARY | 2024-10-01 12:24 | XMS_ITS | Data Portability ---
Author Organization [facility], [address] [place] [address] [place]rology ([place]) Address [address] [place] [address] Care Team Providers Care Form Presser Name Role Phone RAIN SCHMIDT Primary Care Provider CHELLY GOLDMAN Merchandise Flow Associate Assessment Encounter Date Assessment Date Assessment LastModified by Organization Details LastModified Time 09/16/2024 09/16/2024 is a is a pleasant 58-year-old female with a past medical history of hypertension, arthritis, chronic kidney disease and long-term pain issues who is here for further evaluation of her chronic kidney disease. Chronic kidney disease stage III Baseline serum creatinine appears to be 1.2-1.4. Patient's serum creatinine trend is noted to be: October 2020 1.31 with a GFR of September 1.46 with a GFR of July 1.2 with a GFR of 52 Patient's KING is most likely due to hypertension with previous NSAID usage. Patient will continue to hydrate well and have reviewed hydration with the patient. Patient will get CBC, RFP, microalbumin, C3, C4, ABIODUN, ANCA, serum immunofixation, UA, culture, and urine eosinophils today. Patient will be set up for renal ultrasound at [facility] Continue to monitor renal function panel at regular intervals. Discussed about KDIGO recommendations to prevent CKD progression -Advised to undertake moderate-intensity physical activity for a cumulative duration of at least 150 minutes per week, or to a level compatible with their cardiovascular and physical tolerance -Patients should consume a balanced, healthy diet that is high in vegetables, , plant-based proteins, unsaturated fats, and lower in processed meats, refined carbohydrates, and sweetened beverages. -Sodium (<2 g/day) and protein intake (0.8 g/kg/day) in accordance with recommendations for the general population. - Suggest NOT to prescribe bisphosphonate treatment in people with GFR o30 ml/min/1.73 m2 (GFR categories G4-G5) without a strong clinical rationale. -Individualize Hba1c target goal of 6.5 to 8 % based on underlying comorbidities -Cessation of tobacco -Avoid Nephrotoxic agents -such as NSAIDS renal dosage of all medications to the appropriate GFR -Reduce albuminuria with use of KANIKA inhibitor or ARB -initiation of SGLT-2 Inhibitors if appropriate indication. CKD/MBD Calcium and phosphorus will be obtained today. Anemia of chronic disease Patient will get a CBC today. Hypertension Patient's blood pressure is under good control. Patient will continue with her current med regimen and continue to follow a low-sodium diet. The patient had the opportunity to ask and have questions answered. The patient voiced an understanding of the diagnosis and of the care plan and intent to comply with it. [email or web address] Not available 09/16/2024 17:04:11 Plan of Treatment Reminders Order Date Submit Date Provider Last Modified By Organization Details Last Modified Time Details Appointments Xiomara perry Patient 15.EST 2024 10:30A M Dr. Lisa Yoder Not available Not available Not available Lab None recorde d. Referral None recorde d. Procedures None recorde d. Surgeries None recorde d. Imaging None recorde d. Medication Orders None recorde d. Patient TargetsNo targets recorded. Patient InstructionsNo instructions recorded. Reason for Referral None Reported. Problems Name Problem SNOMED Code Status Onset Date Resolution Date Notes Provider Name and Address Organization Details Recorded Time Chronic kidney disease stage 3 867497569 Active 025 Daniel León [facility] 14:30:22 Problem Notes None recorded. Medical Equipment None Reported. Vitals Date Recorded Heart rate Systolic blood pressure Diastolic blood pressure Provider Name and Address Organization Details Last Updated DateTime 09/16/2024 64 /min 136 mm[Hg] 72 mm[Hg] Daniel León [facility] 09/16/2024 14:38:36 Social History None recorded. Functional Status None recorded. Mental Status None recorded. Family History Nothing Reported. Medical History No medical history recorded. Gynecological HistoryNo gynecological history recorded. Obstetrics History GPAL:G 0 P 0 0 0 0 Past Encounters Encounter ID Performer Location Encounter Start Date Encounter Closed Date Diagnosis/Indication Diagnosis SNOMED-CT Code Diagnosis ICD10 Code Diagnosis Note [id number] Chelly Goldman PA-C [facility] Ne[place]rolog ([place]) [address] [place] [address] 09/16/2024 13:55:38 09/16/2024 15:17:23 Chronic kidney disease stage 3 175086447 N18.30 Health Concerns Section Related Observation LastModified by Organization Detai ls LastModified Time None Recorded Concern Status LastModified by Organization Details LastModified Time None Recorded Advance Directives Directive None Recorded Payers Insurance Date Sequence Insurance Name Policy Number Policy Csatañeda Covered Member ID Castañeda Member ID Guarantor Name 09/16/[address] [facility] (MEDICAID HMO) [id number] Cee Tran [id number] eCe Tran Notes Date Note Type Note Provider Name and Address Organization Details Recorded Time 09/16/2024 text/html is a is a pleasant 58-year-old female with a past medical history of hypertension, arthritis, chronic kidney disease and long-term pain issues who is here for further evaluation of her chronic kidney disease. Patient denies any fever, chills, or sweats.She denies any chest pain or shortness of breath.She continues to hydrate well and to avoid NSAIDs.She does states that she used to take naproxen for several years for her pain but has been off of it for the last year or so she thinks but she is unsure.Patient does state that in 2020 2021 she had a episode where she became nonresponsive at home was taken to the hospital and then was placed in a detention for 3 months with decreased mentation and inability to care for self.She is now home but walks with the assistance of a walker. Past medical history as stated above. Family historyUnknown patient was adopted. 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 Chelly Goldman PA-C [address] [place] [address], [id number], [facility] 09/16/2024 17:04:33 OBGyn Episode No OBEpisode recorded.
== END 2024-10-01 12:21 | disposition home or self-care (01) ==
LOC: CHSIMG 12:22
DX: N18.30 Chronic kidney disease, stage 3 unspecified (principal)
CPT/HCPCS: 76775

== ENCOUNTER 2024-10-26 14:37 | Outpatient (CLI) | payer OTHER, SELFPAY ==
--- NOTE | 2024-10-26 14:43 | ECHO_ITS ---
Patient Info Name: Cee Tran Age: 58 years : 1965 Gender: Female Ht: 71 in Wt: 330 lbs BSA: 2.81 m2 HR: 69 bpm BP: 150 / 90 mmHg Technical Quality: Poor Exam Date: 10/26/2024 2:46 PM Patient Status: O Admit Date: 10/26/2024 Exam Type: CA echo doppler color flow Complete two-dimensional, color flow and Doppler transthoracic echocardiogram is performed. Railway Switch Operator: Jolene Tello Summary 1. Complete two-dimensional, color flow and Doppler transthoracic echocardiogram is performed. 2. Left ventricular chamber dimension is normal. 3. Left ventricular systolic function is normal, estimated at 60-65. 4. The left ventricular diastolic function is normal. 5. E/e' 9 is minimally elevated. 6. Left atrial chamber dimension is moderately enlarged. 7. Right atrial chamber dimension is mildly enlarged. 8. The aortic valve is not well visualized. Cannot determine number of aortic valve leaflets. 9. There is mild tricuspid valve regurgitation. 10. No pulmonary hypertension, estimated pulmonary arterial systolic pressure is 35 mmHg. 11. Dilated inferior vena cava with >50% collapse upon inspiration consistent with elevated right atrial pressure, 10 mmHg. Left Ventricle E/e' 9 is minimally elevated. Left ventricular chamber dimension is normal. Left ventricular systolic function is normal, estimated at 60-65. The left ventricular diastolic function is normal. Right Ventricle Right ventricular chamber dimension is normal. Right ventricular systolic function is normal and with normal TAPSE 2.9 cm. Left Atria Left atrial chamber dimension is moderately enlarged. Right Atria Right atrial chamber dimension is mildly enlarged. Aortic Valve The aortic valve is not well visualized. Cannot determine number of aortic valve leaflets. There is no aortic valve stenosis. There is no aortic valve regurgitation. Pulmonic Valve There is no pulmonic regurgitation. Mitral Valve There is no mitral valve stenosis. There is no mitral valve regurgitation. Tricuspid Valve There is mild tricuspid valve regurgitation. No pulmonary hypertension, estimated pulmonary arterial systolic pressure is 35 mmHg. Pericardium/Pleural There is no pericardial effusion. Inferior Vena Cava Dilated inferior vena cava with >50% collapse upon inspiration consistent with elevated right atrial pressure, 10 mmHg. Aorta The aortic root size at the sinus of Valsalva is normal. Left Ventricular Outflow Tract Name Value Normal LVOT 2D LVOT Diameter 1.8 cm LVOT Doppler LVOT Peak Velocity 131 cm/s LVOT Peak Gradient 7 mmHg LVOT Mean Gradient 4 mmHg LVOT VTI 28 cm LVOT VTI/AV VTI Ratio 0.7 LVOT Stroke Volume 71 ml LVOT CO 4.8 l/min LVOT CI 1.7 l/min/m2 Pulmonic Valve Name Value Normal PV Doppler PV Peak Velocity 152 cm/s PV Peak Gradient 9 mmHg PV Regurgitation Doppler MS Peak End Diastolic Velocity 144 cm/s Mitral Valve Name Value Normal MV Diastolic Function MV E Peak Velocity 126 cm/s MV A Peak Velocity 98 cm/s MV E/A 1.3 MV Decel Time (PW) 205 ms MV Annular TDI MV E/e' (Septal) 9.3 MV E/e' (Lateral) 9.3 MV E/e' (Average) 9.3 Tricuspid Valve Name Value Normal TV Regurgitation Doppler TR Peak Velocity 248 cm/s TR Peak Gradient 22 mmHg Estimated PAP/RSVP RA Pressure 10 mmHg <=5 PA Systolic Pressure 35 mmHg <36 RV Systolic Pressure 35 mmHg <36 TV Annular TDI TV Lateral Cally s' Velocity 13.5 cm/s >=9.5 Aortic Valve Name Value Normal AV Doppler AV Peak Velocity 165 cm/s AV Peak Gradient 11 mmHg AV Mean Gradient 7 mmHg AV VTI 39 cm AV Area (Cont Eq VTI) 1.8 cm2 >=3.0 AV Area (Cont Eq Kurt) 2.0 cm2 AV DI (Kurt) 0.79 AV Regurgitation 2D LVOT Area 2.5 cm2 Ventricles Name Value Normal LV Dimensions 2D/MM IVS Diastolic Thickness (2D) 0.9 cm 0.6-1.0 LVID Diastole (2D) 5.9 cm 3.8-5.2 LVIW Diastolic Thickness (2D) 0.9 cm 0.6-0.9 LVID Systole (2D) 4.1 cm 2.2-3.5 LVOT Diameter 1.8 cm LV Mass (2D Cubed) 204.70 g 67.00-162.00 LV Mass Index (2D Cubed) 73 g/m2 43-95 Relative Wall Thickness (2D) 0.29 <=0.42 LV Fractional Shortening/Ejection Fraction 2D/MM LV Fractional Shortening (2D) 31 % 27-45 LV EF (2D Teichholz) 58 % LV Diastolic Volume (4C MOD) 115 ml LV EF (4C MOD) 57 % LV Diastolic Length (4C) 8.3 cm LV Systolic Length (4C) 7.1 cm LV Stroke Volume (4C MOD) 66 ml Atria Name Value Normal LA Dimensions LA Volume (4C A-L) 102 ml LA Volume (BP A-L) 100 ml RA Dimensions RA Systolic [place] Length (4C) 6.1 cm 2.2-2.8 RA Area (4C) 21.5 cm2 <=18.0 Report Signatures
--- OUTSIDE RECORDS SUMMARY | 2024-10-26 15:32 | XMS_ITS | Data Portability ---
Author Organization [facility], [address] [place] [address] Neurology ([place]) Address [address] [place] [address] Care Team Providers Care Superintendent Division Name Role Phone RAIN SCHMIDT Primary Care Provider [phone] Clerk Assessment Encounter Date Assessment Date Assessment LastModified [...] 1.2 with a GFR of 52 Patient's KIGN is most likely due to hypertension with previous NSAID usage. Patient will continue to hydrate well and have reviewed hydration with the patient. Patient will get CBC, RFP, microalbumin, C3, C4, ABIODUN, ANCA, serum immunofixation, UA, culture, and urine eosinophils today. Patient will be set up for renal ultrasound at [facility] Continue to monitor renal function panel at [...] instructions recorded. Reason for Referral None Reported. Results Created Date Observation Date Name Description Value Unit Range Abnormal Flag Note LastModifiedBy Organization Detail LastModifiedTime 10/02/19 25 10/01/2024 [place], aramis [place] No observ ation record ed. [facility] [place] [facility] [address] [place], [address], 10/18/2024 13:57:19 Result Notes None recorded. Problems Name Problem SNOMED Code Status Onset Date Resolution Date Notes Provider Name and Address Organization Details Recorded Time Chronic kidney disease stage 3 [id number] Active 025 Daniel León [facility] 14:30:22 Problem Notes None recorded. Medical Equipment None Reported. Vitals Date Recorded Heart rate Systolic blood pressure Diastolic blood pressure Provider Name and Address Organization Details Last Updated DateTime 09/16/2024 64 /min 136 mm[Hg] 72 mm[Hg] Daniel León [facility] 09/16/2024 14:38:36 Social History None recorded. Functional Status None recorded. Mental Status None recorded. Family History Nothing Reported. Medical History No medical history recorded. Gynecological HistoryNo gynecological history recorded. Obstetrics History GPAL:G 0 P 0 0 0 0 Past Encounters Encounter ID Performer Location Encounter Start Date Encounter Closed Date Diagnosis/Indication Diagnosis SNOMED-CT Code Diagnosis ICD10 Code Diagnosis Note [id number] Chelly Goldman PA-C [facility] Ne[facility]rolog ([place]) [address] [place] [address] 09/16/2024 13:55:38 09/16/2024 15:17:23 Chronic kidney disease stage 3 931312052 N18.30 Health Concerns Section Related Observation LastModified by Organization Detai ls LastModified Time None Recorded Concern Status LastModified by Organization Details LastModified Time None Recorded Advance Directives Directive None Recorded Payers Insurance Date Sequence Insurance Name Policy Number Policy Castañeda Covered Member ID Castañeda Member ID Guarantor Name 09/16/2024 1 [facility] (MEDICAID HMO) [id number] Cee Mary Tran [id number] Cee Tran Notes Date Note Type Note Provider [...] hospital and then was placed in a senior living for 3 months with decreased mentation and inability to care for self.She is now home but walks with the assistance of a walker. Past medical history as stated above. Family historyUnknown patient was adopted. 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 Chelly Goldman PA-C [address] [place] [address], [id number], [facility] 09/16/2024 17:04:33 OBGyn Episode No OBEpisode recorded.
== END 2024-10-26 14:38 | disposition home or self-care (01) ==
PROVIDERS: PCP Nurse Practitioner Family; Visit Provider Nurse Practitioner Family
DX: R01.1 Cardiac murmur, unspecified (principal); I07.1 Rheumatic tricuspid insufficiency
CPT/HCPCS: 93306

== ENCOUNTER 2025-01-25 13:42 | Outpatient (CLI) | payer OTHER, SELFPAY ==
[2025-01-25 14:16] LABS: Anion Gap 14 mmol/L (4-12); Blood Urea Nitrogen 17 mg/dL (7-17); Calcium 9.7 mg/dL (8.4-10.2); Carbon Dioxide 23 mmol/L (22-30); Chloride 107 mmol/L (98-107); Estimated Glomerular Filt Rate 43; Glucose 133 mg/dL (65-110); Osmolality Calculated 301 mOsm/kg (285-295); Potassium 4.3 mmol/L (3.4-5.0); Sodium 144 mmol/L (137-145)
== END 2025-01-25 13:43 | disposition home or self-care (01) ==
LOC: CHSLAB 13:46
PROVIDERS: PCP Nurse Practitioner Family; Visit Provider Internal Medicine Nephrology
DX: N18.30 Chronic kidney disease, stage 3 unspecified (principal)
CPT/HCPCS: 36415; 80048

== ENCOUNTER 2025-01-31 14:39 | Outpatient (CLI) | payer OTHER, SELFPAY ==
--- NOTE | 2025-01-31 14:45 | ECG_ITS ---
Test Date: 2025-01-31 14:54:42 Measurements Intervals Cobb Rate: 63 P: 61 CO: 208 QRS: 97 QRSD: 105 T: 66 QT: 389 QTc: 400 Interpretive Statements SINUS RHYTHM BORDERLINE RIGHT AXIS DEVIATION [QRS AXIS > 90] BORDERLINE ECG No previous ECG available for comparison Electronically Signed On 02-01-2025 12:41:24 CDT by Jacob Richardson M.D.
--- OUTSIDE RECORDS SUMMARY | 2025-01-31 14:57 | XMS_ITS | Encounter Summary ---
Author Organization [facility] Address [address] [place] [address] Care Team Providers Care Director Global Name Role Phone Gallito Padgett MD Primary Care Provider [phone] Greta Martin Primary Care Provider [phone] Devan Cleaning DO Primary Care Provider [phone] Greta Martin Primary Care Provider + [phone] Encounter Details Date Type Department Care Team (Late st Contact Info) Description 10/17/2018 Abstract [facility] CONVERSION [address] [place] [address] , Generic Conversion, Social History Tobacco Use Types Packs/Day Years Used Date Smoking Tobacco: Never Assessed Comments Unknown Sex and Gender Information Value Date Recorded Sex Assigned at Female 12/16/2024 10:15 AM CDT Legal Sex Female 8:52 PM CDT Gender [...] documented as of this encounter Care Teams Director Global Relationship Specialty Start Date End Date Gallito Padgett MD [address] [place] [address] PCP - General FAMILY PRACTICE 05/07/19 09/08/19 Greta Martin FNP [address] [place] [address] PCP - General NURSE PRACTITIONER 09/09/19 10/12/19 Devan Cleaning DO [address] [facility] [facility] [place] [address] PCP - General FAMILY PRACTICE 10/13/19 11/23/19 Greta Martin FNP [address] [place] [address] PCP - General NURSE PRACTITIONER 11/24/19 documented as of this encounter
--- OUTSIDE RECORDS SUMMARY | 2025-01-31 14:57 | XMS_ITS | Clinical Summary ---
Author Organization [facility] Address [address] [place] [address] Care Team Providers Care Regional Airline Pilot Name Role Phone Greta Martin PROBATION AND PATROL AGENT Primary Care Provider [phone] Allergies No known active allergies Medications Umeclidinium [place] Patent (INCRUSE ELLIPTA) 62.5 MCG/INH AEROSOL POWDER, BREATH [...] 11/19/2019 Acute encephalopathy 11/19/2019 Large bowel ischemia ([facility]/HCC) 11/19/2019 Severe sepsis ([facility]) 11/18/2019 Left foot infection 10/13/2019 Elevated liver enzymes 09/12/2019 Contact dermatitis 09/09/2019 Acute deep vein thrombosis o f left popliteal vein ([facility]) 09/09/2019 DDD (degenerative disc disease), cervical 2019 Spinal stenosis of cervical region 05/31/2019 Shoulder pain 09/15/2014 Hypertension COPD (chronic obstructive pu lmonary disease) ([facility]) Smoker unmotivated to quit Sludge in gallbladder Resolved Problems Problem Noted Date Diagnosed Date Resolved Date Hypokalemia 10/16/2020 10/19/2020 Dehydration 09/09/2019 09/10/2019 Acute hyponatremia 09/09/2019 0 Under care of touch up painter 01/21/2020 Pancreatitis ([facility]) 09/09 Encounters Date Type Department Care Team Description 01/06/2025 11:07 AM CDT - 01/06/2025 11:59 PM CDT Hospital Encounter [facility] [address] [place] [id number] Karina Gupta, Valerie Kiran, OT Discharge Disposition: Home or Self Care (Routine Discharge) 01/06/2025 Travel 12/31/2024 11:30 AM CDT - 12/31/2024 11:59 PM CDT Hospital Encounter [facility] [address] [place] [phone] Karina Gupta, Valerie Kiran, OT Discharge Disposition: Home or Self Care (Routine Discharge) 12/31/2024 Travel 12/21/2024 2:00 PM CDT - 12/21/2024 11:59 PM CDT Hospital Encounter [facility] [address] [place] [id number] Karina Gupta, Valerie Kiran, OT Discharge Disposition: Home or Self Care (Routine Discharge) 12/21/2024 Travel 12/17/2024 11:15 AM CDT - 12/17/2024 11:59 PM CDT Hospital Encounter [facility] [address] [place] [id number] Karina Gupta, Valerie Kiran, OT Discharge Disposition: Home or Self Care (Routine Discharge) 12/17/2024 Travel 12/16/2024 10:15 AM CDT - 12/16/2024 11:59 PM CDT Hospital Encounter [facility] [address] [place] [address] Lisa Yoder MD Discharge Disposition: Home or Self Care (Routine Discharge) 12/16/2024 Orders Only [facility] [address] [place] [address] Lisa Yoder MD 12/16/2024 Travel 12/10/2024 10:43 AM CDT - 12/10/2024 11:59 PM CDT Hospital Encounter [facility] [address] [place] [phone] Karina Gupta, Valerie Kiran, OT Discharge Disposition: Home or Self Care (Routine Discharge) 12/10/2024 Travel 12/03/2024 11:30 AM CDT - 12/03/2024 11:59 PM CDT Hospital Encounter [facility] [address] [place] [phone] Karina Gupta, Valerie Kiran, OT Discharge Disposition: Home or Self Care (Routine Discharge) 12/03/2024 Travel 11/23/2024 9:43 AM CDT - 11/23/2024 11:59 PM CDT Hospital Encounter [facility] [address] [place] [phone] Karina Gupta, Valerie Kiran, OT Discharge Disposition: Home or Self Care (Routine Discharge) 11/23/2024 Travel from Last 3 Months Social History Tobacco Use Types Packs/Day Years [...] than three times a week 09/09/2019 Attends Muslim Services Never 09/08 Active Member of Clubs or Organizations No 09/09/2019 Attends Club or Organization Meetings Never 09/09/2019 Marital Status Not on file 09/09/2019 Overall Financial Resource Strain (CARDIA) Answe r Date Recorded Difficulty of Paying Living Expenses Not very oliveira rd 09/09/2019 [facility] [place] [facility] - Occupational Stress [...] 7:30 PM CDT Height 177.8 cm (5' 10) 10/16/2020 7:30 PM CDT Body Mass Index 43.71 10/16/2020 7:30 PM CDT Plan of Treatment Health Maintenance Due Date Last Done Comments Cervical Cancer Screening Pa p Smear (Age 30 to 64) Every 3 Years 1965 Colorectal Cancer Screening Colonoscopy (10 Years) 1965 Annual Physical 1968 Pneumococcal Vaccine: 50+ Ye ars (1 of 2 - PCV) 1984 Cervical Cancer Screening Pa p with HPV Testing (Age 30 to 64) Every 5 Years 12/06/1995 Cervical Cancer Screening with HPV 12/06/1995 Mammogram Screening 2005 Zoster Vaccines (1 of 2) 12/06/2015 COVID-19 Vaccine (2 - 2024-2 6 season) 2025 10/27/2020 DTaP, Tdap and Td Vaccines ( 2 - Td or Tdap) 10/25/2027 10/24/2017 Hepatitis C Completed 09/11/2019 Meningococcal B Vaccine Aged Out No l onger eligible based on patient's age to complete this topic Meningococcal Vaccine Aged Out No ryann bear eligible based on patient's age to complete this topic RSV Immunizations Under 20 Months Aged Out No longer eligible based on patient's age to complete this topic Procedures Procedure Name Priority Date/Time Associated Diagnosis Comments ALBUMIN URINE RANDOM W/CREATININE Routine 12/16/2024 10:43 AM CDT Chronic kidney disease, stage 3 unspecified (CMS/HCC) CBC W/DIFF AUTOMATED Routine 12/16/2024 10:38 AM CDT Chronic kidney disease, stage 3 unspecified (CMS/HCC) RENAL FUNCTION PANEL Routine 12/16/2024 10:38 AM CDT Chronic kidney disease, stage 3 unspecified (CMS/HCC) HEPATITIS PANEL,ACUTE Routine 09/11/2019 8:34 AM CDT from Last 3 Months or Most Recently Relevant to Health Maintenance Results * ALBUMIN CREATININE URINE RANDOM (12/16/2024 10:43 AM CDT) ALBUMIN (U) 1.6 MG/DL 12/16/2024 11:01 AM CDT [facility] Comment:REFERENCE RANGE NOT ESTABLISHED CREATININE RANDOM (U) 138.0 MG/DL 12/16/2024 11:01 AM CDT [facility] Comment:REFERENCE RANGE NOT ESTABLISHED ALBUMIN/CREAT RATIO 11.6 <30 MG/G 12/16/2024 11:01 AM CDT [facility] Comment: NORMAL TO MILDLY INCREASED ALBUMINURIA: <30 MG/G MODERATELY INCREASED ALBUMINURIA: 30 TO 300 MG/G SEVERELY INCREASED ALBUMINURIA: >300 MG/G PER KDIGO URINE SPECIMEN / Unknown 12/16/2024 10:43 AM CDT Lisa Yoder MD URINE ORDERABLES Final Res ult [facility] [address] [place] [address], * (ABNORMAL) RENAL FUNCTION PANEL (12/16/2024 10:38 AM CDT) SODIUM S/P/B 142 136 - 145 MMOL/L 12/16/2024 11:00 AM CDT [facility] POTASSIUM S/P/B 4.0 3.5 - 5.1 MMOL/L 12/16/2024 11:00 AM CDT [facility] CHLORIDE S/P/B 104 98 - 107 MMOL/L 12/16/2024 11:00 AM CDT [facility] CO2 26.8 21.0 - 32.0 MMOL/L 12/16/2024 11:00 AM T [facility] GLUCOSE 113(H) 70 - 99 MG/DL 12/16/2024 11:00 AM CDT [facility] Comment: FASTING GLUCOSE 100 TO 125 MG/DL IS CONSISTENT WITH IMPAIRED FASTING GLUCOSE. FASTING GLUCOSE >125 MG/DL IS CONSISTENT WITH DIABETES. RANDOM GLUCOSE >200 MG/DL WITH HYPERGLYCEMIC SYMPTOMS IS CONSISTENT WITH DIABETES. PER ADA GUIDELINES BUN 20 6 - 24 MG/DL 12/16/2024 11:00 AM CDT [facility] CREATININE S/P/B 1.33(H) 0.55 - 1.02 MG/DL 12/16/2024 11:00 AM CDT [facility] CALCIUM S/P/B 9.6 8.4 - 10.5 MG/DL 12/16/2024 11:00 AM CDT [facility] ALBUMIN S/P/B 4.0 3.4 - 5.0 G/DL 12/16/2024 11:00 AM CDT [facility] PHOSPHORUS 3.0 2.6 - 4.7 MG/DL 12/16/2024 11:00 AM CDT [facility] ANION GAP 11.2 5.0 - 15.0 MMOL/L 12/16/2024 11:00 AM CDT [facility] OSMOLALITY (CALC) 297 MOSM/KG 025 11:00 AM CDT [facility] Comment:REFERENCE RANGE NOT ESTABLISHED GFR ESTIMATE 46(L) >89 ML/MIN/1. 73 M2 12/16/2024 11:00 AM CDT [facility] GFR NOTES GFR REFERENCE S: 12/16/2024 11:00 AM CDT [facility] Comment: THE ESTIMATED GFR IS CALCULATED USING THE 2020 CKD-EPI EQUATION. THE FOLLOWING CATEGORIES FOR GRADING RENAL FUNCTION ARE RECOMMENDED BY THE INTERNATIONAL SOCIETY OF NEPHROLOGY (KDIGO 2012 CLINICAL PRACTICE GUIDELINE). G1,NORMAL OR HIGH: >89 ml/min/1.73 m2 G2,MILDLY DECREASED: 60-89 ml/min/1.73 m2 G3A,MILDLY TO MODERATELY DECREASED: 45-59 ml/min/1.73 m2 G3B,MODERATELY TO SEVERELY DECREASED: 30-44 ml/min/1.73 m2 G4,SEVERELY DECREASED: 15-29 ml/min/1.73 m2 G5,KIDNEY FAILURE: <15 ml/min/1.73 m2 12/16/2024 10:3 8 AM CDT Lisa Yoder MD LABORATORY Final Resu lt [facility] [address] [place] [address], * (ABNORMAL) CBC W/DIFF AUTOMATED (12/16/2024 10:38 AM CDT) WBC 9.79 4.00 - 10.80 x10'3/uL 12/16/2024 10:44 AM CDT [facility] RBC 4.76 4.10 - 5.40 x10'6/uL 12/16/2024 10:44 AM CDT [facility] HGB 13.9 12.0 - 16.0 G/DL 12/16/2024 10:44 AM CDT [facility] HCT 42.5 36.0 - 47.0 % 12/16/2024 10:44 AM CDT [facility] MCV 89.3 78.0 - 100.0 FL 12/16/2024 10:44 AM CDT [facility] MCH 29.2 27.0 - 31.0 PG 12/16/2024 10:44 AM CDT [facility] MCHC 32.7(L) 33.0 - 36.0 G/DL 12/16/2024 10:44 AM CDT [facility] RDW 14.3 11.5 - 14.5 % 12/16/2024 10:44 AM CDT [facility] PLT 258 150 - 350 x10'3/uL 12/16/2024 10:44 AM CDT [facility] MPV 12.0(H) 7.4 - 10.4 FL 12/16/2024 10:44 AM CDT [facility] CBC COMMENT NORMAL REFERENCE RANGE NOT ESTABLISHED FOR THE PROPORTIONAL LEUKOCYTE DIFFERENTIAL. 12/16/2024 10:44 AM CDT [facility] NEUTROPHILS % 71.4 % 12/16/2024 10:44 AM CDT [facility] LYMPHOCYTES % 16.6 % 12/16/2024 10:44 AM CDT [facility] MONOCYTES % 9.3 % 12/16/2024 10:44 AM CDT [facility] EOSINOPHILS % 1.8 % 12/16/2024 10:44 AM CDT [facility] BASOPHILS % 0.6 % 12/16/2024 10:44 AM CDT [facility] IMMATURE GRANS % 0.3 % 12/17/19 10:44 AM CDT [facility] NRBC % 0.0 % 12/16/2024 10:44 AM CDT [facility] ABS. NEUTROPHILS 6.98 1.60 - 8.30 x10'3/uL 12/16/2024 10:44 AM CDT [facility] ABS. LYMPHOCYTES 1.63 0.80 - 4.70 x10'3/uL 12/16/2024 10:44 AM CDT [facility] ABS. MONOCYTES 0.91 0.00 - 1.50 x10'3/uL 12/16/2024 10:44 AM CDT [facility] ABS. EOSINOPHILS 0.18 0.00 - 0.40 x10'3/uL 12/16/2024 10:44 AM CDT [facility] ABS. BASOPHILS 0.06 0.00 - 0.20 x10'3/uL 12/16/2024 10:44 AM CDT [facility] ABS. IMMATURE GRANULOCYTES 0.03 0.00 - 0.03 x10'3/uL 12/16/2024 10:44 AM CDT [facility] ABS. NUCLEATED RBC'S 0.00 0.00 - 0.01 x10'3/uL 12/16/2024 10:44 AM CDT [facility] 12/16/2024 10:3 8 AM CDT Lisa Yoder MD LABORATORY Final Resu lt [facility] [address] [place] [address], * HEPATITIS PANEL,ACUTE (09/11/2019 8:34 AM CDT) HEPATITIS B SURFACE AG NON-REACT STAN NON-REACT STAN 09/13/2019 9:09 PM CDT [facility] Comment:HBsAg NOT DETECTED. HEP B CORE IGM NON-REACT STAN NON-REACT STAN 09/13/2019 9:09 PM CDT [facility] Comment: IgM ANTI HBc NOT DETECTED. DOES NOT EXCLUDE THE POSSIBILITY OF EXPOSURE TO OR INFECTION WITH HBV. NO RETEST REQUIRED. HIGH DOSES OF BIOTIN MAY INTERFERE WITH THIS TEST RESULT. CORRELATION TO CLINICAL HISTORY AND PRESENTATION RECOMMENDED. HAV IGM NON-REACT STAN NON-REACT STAN 09/13/2019 9:09 PM CDT [facility] Comment: IgM ANTI HAV NOT DETECTED. DOES NOT EXCLUDE THE POSSIBILITY OF EXPOSURE TO OR INFECTION WITH HAV. LEVELS OF IgM ANTI HAV MAY BE BELOW THE CUTOFF IN EARLY INFECTION. HEPATITIS C AB NON-REACT STAN NON-REACT STAN 09/13/2019 9:09 PM CDT [facility] Comment: ANTIBODIES TO HCV NOT DETECTED. DOES NOT EXCLUDE THE POSSIBILITY OF EXPOSURE TO HCV. 09/11/2019 8:34 AM CDT Jm Luther MD LABORATORY Final Result [facility] [address] [place] [address], [id number] from Last 3 Months or Most Recently Relevant to Health Maintenance Insurance LIN Advance Directives * Full Code (Latest Code [...] 7:35 AM 09/13/2019 4:40 PM Care Teams Regional Airline Pilot Relationship Specialty Start Date End Date Greta Martin FNP [address] [place] [address] PCP - General NURSE PRACTITIONER 11/24/19
== END 2025-01-31 14:40 | disposition home or self-care (01) ==
LOC: CHSCARD 14:40
PROVIDERS: PCP Nurse Practitioner Family; Visit Provider Internal Medicine Cardiovascular Disease
DX: R06.09 Other forms of dyspnea (principal)
CPT/HCPCS: 93005